=== PATIENT | female | born 1945 | race Caucasian/White ===

== ENCOUNTER 2018-06-25 12:41 | Emergency (ER) | payer MEDICARE, OTHER, SELFPAY ==
[2018-06-25 12:42] VITALS: BP 127/79; PULSE 85; RESP 17; TEMP 36.9; O2SAT 96
--- NOTE | 2018-06-25 13:11 | DI.RPTCT_ITS ---
SYMPTOM/DIAGNOSIS: MENTAL STATUS CHANGES NONCONTRAST HEAD CT: Comparison is made with 03/25/18. There are again seen old bilateral infarcts. No acute intracranial hemorrhage, infarct, midline shift or mass effect is identified. The ventricles are intact. The basilar cisterns are patent. The ventricles and sulci are prominent consistent with the patient's age. There are areas of decreased attenuation in the white matter consistent with small vessel ischemic disease. The calvarium is intact. The visualized paranasal sinuses are clear. The mastoid air cells are well pneumatized. IMPRESSION: No acute intracranial process. The findings were discussed with Dr. Tuttle of the ER on the date of the examination.
--- NOTE | 2018-06-25 13:11 | DI.REPORT_ITS ---
SYMPTOM/DIAGNOSIS: MENTAL STATUS CHANGES, LT HIP PAIN AP PELVIS: A single view was obtained. Comparison is made with 11/09/17. There are old healed fractures involving the right superior and inferior pubic rami. No acute fracture or dislocation is seen. There are degenerative changes seen at the sacroiliac joints bilaterally. The symphysis pubis appears intact. Moderately severe degenerative changes are noted in the lower lumbar spine. The hip joints appear well maintained. The bones appear osteopenic. Soft tissues are unremarkable. IMPRESSION: 1. No acute fracture or dislocation. 2. Moderately severe degenerative changes in the lower lumbar spine and sacroiliac joints. 3. Old healed right pubic bone fractures. AP AND LATERAL CHEST: Comparison is made with 03/25/18. The heart is enlarged but stable. There is a stable mitral valve replacement. Pulmonary vasculature is within normal limits. No focal infiltrates, effusions or pneumothoraces are identified. Mild degenerative changes are seen in the spine. IMPRESSION: Cardiomegaly. No acute pulmonary process.
--- NOTE | 2018-06-25 13:14 | ED.GENADUL_ITS ---
Disposition Clinical Impression: Acute cystitis Disposition: HOME Condition: Good Instructions: Urinary Tract Infection in Women (ED) Additional Instructions: Take antibiotics as prescribed. Follow-up with regular doctor for recheck in 7-10 days time. Return to the emergency department for any acute concerns. Prescriptions: Cephalexin [Keflex] 500 mg PO TID #30 cap Medical Decision Making - EKG Data -: EKG Interpreted by Me 06/25/18 13:28 Underlying atrial fibrillation, left bundle branch block pattern with repolarization abnormalities, no sig change versus comparison - Radiology Data Radiology results: report reviewed, image reviewed - Medical Decision Making 73-year-old female presents from home with acute mental status changes over days time. She has a baseline of aphasia following previous stroke and poor generalized orientation/dementia. She is afebrile with pulse 85, blood pressure 127/79. Neurologic exam is nonfocal. Differential diagnosis includes recurrent UTI, dehydration, electrolyte abnormality. Must consider central process as well as occult pneumonia. Finally, the patient complains intermittently of left hip discomfort. Exam reveals ulceration to the left distal posterior leg, which may be the source of her discomfort. Referred for laboratory analysis including a blood culture, urinalysis, CT scan of the head, chest x-ray, pelvis x-ray. Fluids initiated. White blood cell count 10, hematocrit 48, platelets 216, INR 3.3. Chemistries reassuring with sodium 139, potassium 4.1, chloride 104, bicarb 25, BUN 23, creatinine 0.9, LFTs unremarkable, troponin negative, albumin 3.2. Urine with positive nitrates, large leuk esterase, greater than 50 white blood cells. Culture pending. Imaging studies are without significant acute finding. Patient given ceftriaxone for her urinary tract infection in the emergency department. Placed on a course of Keflex. Her and the patient were interviewed by case management regarding their in-home resources. Mepilex was placed to the left posterior lower leg ulceration with dressing. Patient stable for discharge with her to home. She will continue antibiotic therapy. She will follow-up with primary care for recheck History of Present Illness - General Chief complaint: AMS/LOC Stated complaint: BARRE Time Seen by Provider: 06/25/18 12:58 Source: family, EMS Mode of arrival: EMS Limitations: altered mental status - History of Present Illness Initial comments: 73-year-old female brought by EMS from home. Per family she has had mental status changes of the gradual onset over days time. Concern for possible recurrent urinary tract infection. The patient has history of previous left MCA stroke with aphasia. She currently is maintained on warfarin, digoxin, Toprol. She is not contributory to the history. - Related Data Acetaminophen [Acetaminophen Extra Strength] 1,000 mg PO BID 08/27/16 Sertraline HCl 150 mg PO DAILY 08/27/16 Warfarin [Coumadin] 5 mg PO DIRECTED 08/27/16 Atorvastatin [Lipitor] 40 mg PO QPM #30 tab 09/05/16 Metoprolol CR [Toprol Xl] 50 mg PO BID 03/25/18 Cephalexin [Keflex] 500 mg PO TID #30 cap 06/25/18 Mirabegron [Myrbetriq] 25 mg PO 06/25/18 Allergies Allergy/AdvReac Type Severity Reaction Status Date / Time codeine Allergy Unknown Unverified 03/25/18 09:39 erythromycin base Allergy Unknown Unverified 03/25/18 09:39 Review of Systems Limitations: ROS unobtainable due to patients medical condition Past Medical History - Past Medical History Medical history: AFIB, 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 Family history: no significant family history - Social History Alcohol use: none Drug use: none General Exam - General Limitations: altered mental status General appearance: alert, in no apparent distress - Head Head exam: Present: atraumatic, normocephalic - Eye Eye exam: Present: PERRL, EOMI - ENT ENT exam: Present: mucous membranes dry - Respiratory Respiratory exam: Present: normal lung sounds bilaterally. Absent: respiratory distress, chest wall tenderness - Cardiovascular Cardiovascular Exam: Present: regular rate, irregular rhythm - GI/Abdominal GI/Abdominal exam: Present: soft. Absent: distended - Extremities Exam Extremities exam: Present: normal inspection, other (Left lower extremity, mid distal lower leg with posterior ulceration measuring approximately 3 x 2 cm.). Absent: tenderness - Back Exam Back exam: Present: normal inspection. Absent: tenderness - Neurological Exam Neurological exam: Present: motor sensory deficit, other (Patient is conversant , confused, oriented to person. Moves all extremities) - Psychiatric Psychiatric exam: Present: normal affect, normal mood - Skin Skin exam: Present: warm, dry, intact Course Vital Signs - 24 hr 06/25/18 12:42 Temperature 36.9 C Pulse 85 Respiratory 17 Rate Blood Pressure 127/79 Pulse Oximetry 96
[2018-06-25 13:26] LABS: Abs Immature Grans 0.02 k/cumm (0.0-0.09); Absolute Basophil Count 0.07 k/cumm (0.0-0.2); Absolute Eosinophil Count 0.09 k/cumm (0.0-0.7); Absolute Lymphocyte Count 2.97 k/cumm (1.2-3.4); Absolute Monocyte Count 0.61 k/cumm (0.11-0.7); Absolute Neutrophil Count 6.26 k/cumm (1.2-6.7); Basophils % 0.7; Eosinophils % 0.9; HCT 48.2 % (36.0-46.0); HGB 15.8 g/dL (12.0-15.5); Immature Grans % 0.2; Lymphocytes % 29.6; Mean Corp. HGB Concentration 32.8 g/dL (32.0-36.0); Mean Corpuscular Hemoglobin 28.6 pg (27.0-33.0); Mean Corpuscular Volume 87.2 fL (80-95); Mean Platelet Volume 10.7 fL (8.0-11.0); Monocytes % 6.1; Neutrophils % 62.5; Platelet Count 216 x1000/uL (130-400); RBC 5.53 m/cumm (4.00-5.20); RBC Distribution Width 14.8 % (11.7-14.6); White Blood Cell Count 10.02 k/cumm (4.4-10.8)
[2018-06-25 13:33] LABS: Bilirubin Negative (Negative); Blood Moderate (Negative); Clarity Cloudy; Glucose Negative (Negative); Ketones Negative (Negative); Leukocyte Esterase Large (Negative); Nitrite Positive (Negative); Urobilinogen 0.2 EU/dL (Up TO 0.2)
[2018-06-25 13:38] LABS: INR 3.3 (1.0-3.5); Prothrombin Time 31.1 sec (9.3-10.8)
[2018-06-25 13:42] LABS: ALT 26 U/L (12-78); AST 24 U/L (15-37); Albumin 3.2 g/dL (3.4-5.0); Alkaline Phosphatase 116 U/L (46-116); Anion Gap 9.3 mmol/L (3-11); BUN 23 mg/dL (7-18); Bilirubin, Total 0.5 mg/dL (0.2-1.0); CO2 25.7 mmol/L (21.0-32.0); CREATININE 0.97 mg/dL (0.55-1.02); Calcium 8.6 mg/dL (8.5-10.1); Chloride 104 mmol/L (98-107); Estimated GFR 55.98 (mL/min/1.73m2); Glucose 99 mg/dL (70-100); Magnesium 2.3 mg/dL (1.8-2.4); Potassium 4.1 mmol/L (3.5-5.1); Sodium 139 mmol/L (136-145); Total Protein 6.7 g/dL (6.4-8.2)
[2018-06-25 13:43] LABS: Troponin I < 0.02 ng/mL (0.00-0.06)
[2018-06-25 13:46] LABS: C & S Indicated? Yes; WBC >50 HPF (0-5)
--- NOTE | 2018-06-25 14:26 | PDOC.ERCMPRO ---
Care Management Progress Note 06/25-Met with Inna and her Sp. Inna presented to the ED today for acute mental status changes over several days. Inna has aphasia following a stroke, and dementia. Inna lives in [place] with her Sp. They have been for 44 years Inna's son lives three miles down the road and is a big help to them. Inna was discharged from [facility] on 02/27/18. Inna came home from [place] with home health PT/OT, nursing, and speech. She has been d/c'd from PT and speech. Currently receives home health nursing once a week for wound management and INR. Inna was also receiving services from [email or web address], a private care giving company, but Sp has suspended those services as he states they are not available in the afternoon and that is when he really needs help. Inna has a walker, cane, shower chair, wheelchair and handicap ramp at home. Sp states Inna walks about 10 feet holding onto the wall and furniture, states she can not walk independently. Sp provides all care for Inna including, meal preparation, housework, laundry, transportation and incontinence care. Sp states that they can no longer go out and eat as Inna can not hold her bowels and usually messes herself before they gets home. Discussed increased services, meals on wheels, private care giving, and possible return to [facility]. At this time, Sp is declining putting anything into place. He states he is working with Cory Underwood, elder care head soft sugar operator in [facility], to try and get their affairs in order. Sp states everything is private pay as the two of them have over $300,000. Sp is stating that he hopes Cory can help. Sp has my contact information if further assistance is needed.
--- NOTE | 2018-06-25 14:38 | CMPROGNOTE_ITS ---
Care Management Progress Note 06/25-Met with Inna and her Sp. Inna presented to the ED today for acute mental status changes over several days. Inna has aphasia following a stroke, and dementia. Inna lives in [place] with her Sp. They have been for 44 years Inna's son lives three miles down the road and is a big help to them. Inna was discharged from [facility] on 02/27/18. Inna came home from [place] with home health PT/OT, nursing, and speech. She has been d/c'd from PT and speech. Currently receives home health nursing once a week for wound management and INR. Inna was also receiving services from [employer], a private care giving company, but Sp has suspended those services as he states they are not available in the afternoon and that is when he really needs help. Inna has a walker, cane, shower chair, wheelchair and handicap ramp at home. Sp states Inna walks about 10 feet holding onto the wall and furniture, states she can not walk independently. Sp provides all care for Inna including, meal preparation, housework, laundry, transportation and incontinence care. Sp states that they can no longer go out and eat as Inna can not hold her bowels and usually messes herself before they gets home. Discussed increased services, meals on wheels, private care giving, and possible return to [facility]. At this time, Sp is declining putting anything into place. He states he is working with Cory Underwood, elder care vending machine servicer in [facility], to try and get their affairs in order. Sp states everything is private pay as the two of them have over $300,000. Sp is stating that he hopes Cory can help. Sp has my contact information if further assistance is needed.
[2018-06-25] MEDS: Normal Saline 1,000 ML 150 ML IV (14:59)
== END 2018-06-25 16:10 | disposition home or self-care (01) ==
PROVIDERS: Emergency Provider Emergency Medicine; PCP Family Medicine
DX: N30.00 Acute cystitis without hematuria (principal); B96.20 Unspecified Escherichia coli [E. coli] as the cause of diseases classified elsewhere; M25.552 Pain in left hip; I69.320 Aphasia following cerebral infarction; L97.829 Non-pressure chronic ulcer of other part of left lower leg with unspecified severity
CPT/HCPCS: 70450; 71046; 72170; 93005; 96361; 96365; 99285 ×2; J0696; 36415; 80053; 87040; 87077; 81003; 81015; 83735; 84484; 85025; 85610; 87086; 87186; 93010

== ENCOUNTER → 2018-07-10 14:43 | Outpatient (REF) | payer MEDICARE, OTHER, SELFPAY ==
[2018-07-10 21:13] LABS: Abs Immature Grans 0.02 k/cumm (0.0-0.09); Absolute Basophil Count 0.05 k/cumm (0.0-0.2); Absolute Eosinophil Count 0.18 k/cumm (0.0-0.7); Absolute Lymphocyte Count 2.82 k/cumm (1.2-3.4); Absolute Neutrophil Count 5.96 k/cumm (1.2-6.7); Basophils % 0.5; Eosinophils % 1.9; HCT 50.3 % (36.0-46.0); HGB 16.2 g/dL (12.0-15.5); Immature Grans % 0.2; Lymphocytes % 29.6; Mean Corp. HGB Concentration 32.2 g/dL (32.0-36.0); Mean Corpuscular Hemoglobin 28.3 pg (27.0-33.0); Mean Corpuscular Volume 87.8 fL (80-95); Mean Platelet Volume 11.7 fL (8.0-11.0); Monocytes % 5.2; Neutrophils % 62.6; Platelet Count 223 x1000/uL (130-400); RBC 5.73 m/cumm (4.00-5.20); RBC Distribution Width 14.9 % (11.7-14.6); White Blood Cell Count 9.53 k/cumm (4.4-10.8)
[2018-07-10 21:17] LABS: Bilirubin Negative (Negative); Blood Small (Negative); Clarity Sl Cloudy; Glucose Negative (Negative); Ketones Negative (Negative); Leukocyte Esterase Negative (Negative); Nitrite Negative (Negative); Specific Gravity 1.015 (1.005-1.025); Urobilinogen 0.2 EU/dL (Up TO 0.2)
[2018-07-10 21:28] LABS: WBC 0-2 HPF (0-5)
[2018-07-10 21:29] LABS: Bacteria Few HPF (Negative); Casts Negative LPF (Negative); Crystals Rare Calcium Oxalate HPF (Negative); Epithelial Cells Many HPF (Negative); Mucus Negative (Negative); Other Cells Rare Renal (Negative)
[2018-07-10 21:30] LABS: C & S Indicated? No/Sq. Contamination
[2018-07-10 21:49] LABS: ALT 27 U/L (12-78); AST 22 U/L (15-37); Albumin 3.9 g/dL (3.4-5.0); Alkaline Phosphatase 122 U/L (46-116); BUN 18 mg/dL (7-18); Bilirubin, Total 0.5 mg/dL (0.2-1.0); CREATININE 0.81 mg/dL (0.55-1.02); Chloride 102 mmol/L (98-107); Glucose 95 mg/dL (70-100); Potassium 4.4 mmol/L (3.5-5.1); Sodium 137 mmol/L (136-145); Total Protein 7.4 g/dL (6.4-8.2); Vitamin B12 546 pg/mL (193-986)
== END ==
LOC: NCHCN 14:43
PROVIDERS: PCP Family Medicine; Visit Provider Nurse Practitioner
DX: R10.9 Unspecified abdominal pain (principal); R41.89 Other symptoms and signs involving cognitive functions and awareness; R31.9 Hematuria, unspecified
CPT/HCPCS: 80053; 81003; 81015; 82607; 85025

== ENCOUNTER → 2018-07-15 01:36 | Outpatient (CLI) | payer MEDICARE, OTHER, SELFPAY ==
--- NOTE | 2018-07-15 10:53 | DI.RPTCT_ITS ---
SYMPTOMS/DIAGNOSIS: FLANK PAIN, R10.9, HEMATURIA, R31.9 CT SCAN OF THE ABDOMEN AND PELVIS: CT scan of the abdomen and pelvis was performed according to the renal colic protocol. The visualized lung bases are unremarkable. The visualized unenhanced portions of the liver and spleen are unremarkable. The patient is status post cholecystectomy. No biliary ductal dilatation is seen. There is fatty atrophy of the pancreas which is otherwise unremarkable. The adrenal glands are unremarkable. There is a 1 mm nonobstructing stone in the upper pole of the right kidney. There is again seen a cyst in the mid pole of the right kidney. This was present on prior examinations. There is no evidence of left nephrolithiasis. No ureterolithiasis or hydronephrosis is identified. No stones are seen in the urinary bladder. The uterus appears to be absent. Please correlate clinically. There is atherosclerosis of the abdominal aorta but no aneurysmal dilatation is present. No significant abdominal or pelvic adenopathy, ascites or pneumoperitoneum is present. There is a large amount of stool seen throughout the colon particularly the ascending and transverse colon consistent with constipation. No findings to suggest bowel obstruction, inflammation or infection are noted. No findings to suggest an acute appendicitis are seen. Note is made of a small fat containing umbilical hernia. Degenerative changes are present throughout the spine. The bones appear osteopenic. Old healed fractures are seen involving the right superior and inferior pubic rami. There is a scoliotic curvature of the spine. IMPRESSION: 1. Right nephrolithiasis. No evidence of ureterolithiasis or obstructive uropathy. 2. Large amount of stool throughout the colon consistent with constipation.
== END ==
PROVIDERS: PCP Family Medicine; Visit Provider Nurse Practitioner
DX: R10.31 Right lower quadrant pain (principal); N20.0 Calculus of kidney; K59.00 Constipation, unspecified
CPT/HCPCS: 74176

== ENCOUNTER 2018-08-03 12:10 | Emergency (ER) | payer MEDICARE, SELFPAY ==
--- NOTE | 2018-08-03 12:15 | ED.GENADUL_ITS ---
Discharge Plan Disposition Patient Disposition: HOME Condition: Improving Discharge Details Chief Complaint: AMS/LOC Clinical Impression: Acute UTI Reason For Visit: UTI Primary Care Provider: Elizabeth Corral ED Provider: Vickey Tuttle Home Meds and New Rx's Prescriptions: New cephalexin 500 mg capsule 500 mg PO TID 7 Days Qty: 21 RF: 0 Continue sertraline 100 MG tablet 150 mg PO DAILY RF: 0 acetaminophen [Acetaminophen Extra Strength] 500 MG tablet 1,000 mg PO BID RF: 0 warfarin [Coumadin] 5 MG tablet 5 mg PO DIRECTED RF: 0 atorvastatin [Lipitor] 40 MG tablet 40 mg PO QPM Qty: 30 RF: 0 metoprolol succinate 50 MG tablet extended release 24 hr 50 mg PO BID RF: 0 mirabegron [Myrbetriq] 25 MG tablet extended release 24 hr 25 mg PO RF: 0 Discharge Instructions Instructions: Urinary Tract Infection in Women (ED) Additional Instructions: Please take antibiotics as prescribed. Follow-up with Dr. Corral in clinic this week for recheck. Return to the emergency department for any acute concerns. Continue all regularly prescribed medications. Medical Decision Making MDM Narrative Medical decision making narrative: 73-year-old female presents from home with her with days of mild mental status changes that have been gradual in onset. She arrives with no fever, unremarkable vital signs, and exam that is nonfocal with the exception of some mild word finding difficulties. She has had a history of confusion with urinary tract infections in the past. Differential diagnosis today would also include electrolyte abnormalities, dehydration. Do not feel that she has signs of new CVA. Patient referred for screening laboratories and urinalysis. His white blood cell count of 11, otherwise unremarkable CBC. Chemistries reveal BUN of 22 with creatinine 0.9. INR is 4.2 Urinalysis with positive leuk esterase and consistent with acute urinary tract infection. I reviewed the patient's previous urine cultures which show pansensitive E. coli. I will place her on a course of Keflex and she will follow up with primary care for recheck. As her INR is slightly elevated, I will have her hold today's dose of warfarin, and this may be followed up in clinic this week. HPI - General Adult General Mode of arrival: ambulatory . Date/Time Provider Initiated Documentation: 08/03/18 12:13 . Limitations to Documentation: no limitations . Information obtained by: patient and family . History of Present Illness 73 year old F presents to the emergency department with the chief complaint of Not acting herself per , described as mild and moderate, Quality is described as constant, Patient started experiencing this day(s) and it has been constant. No relieving factors improve symptom(s), No exacerbating factors reported . Patient notes confusion and weakness. Patient did receive the following treatments prior to arrival, none HPI Narrative: 73yof presents from home with her . She has had previous stroke for which she is taking warfarin, and has had word finding difficulty since that time. reports the gradual onset over 4-5 days time of generalized malaise and mild confusion. No new focal weakness, no new difficulty with speech no new changes to gait. She has not had any injury, recent illness. Related Data Home Medications Medication Instructions Recorded Confirmed acetaminophen [Acetaminophen Extra 1,000 mg PO BID 08/27/16 08/03/18 Strength] sertraline 150 mg PO DAILY 08/27/16 08/03/18 warfarin [Coumadin] 5 mg PO DIRECTED 08/27/16 08/03/18 metoprolol succinate 50 mg PO BID 03/25/18 08/03/18 mirabegron [Myrbetriq] 25 mg PO 06/25/18 Previous Rx's Medication Instructions Recorded atorvastatin [Lipitor] 40 mg PO QPM #30 tab 09/05/16 cephalexin 500 mg PO TID 7 Days #21 cap 08/03/18 Allergies Allergy/AdvReac Type Severity Reaction Status Date / Time codeine Allergy Unknown Unverified 08/03/18 12:26 erythromycin base Allergy Unknown Unverified 08/03/18 12:26 Review of Systems Review of Systems 8 systems reviewed and otherwise negative [facility] Social History Smoking/Tobacco Use Status: Never Exam Narrative Exam Narrative: GEN: awake, alert, oriented to person and place. Pleasant, well groomed, interactive. HEAD: Normocephalic, atraumatic ENT: Mucous membranes moist, oropharynx unremarkable, External ear exam unremarkable EYES: PERRL, EOMI NECK: Full ROM, no SKYLER, no menigismus CHEST/RESP: Nontender, clear to auscultation bilateral, no wheeze/rhonchi/rales CARDIOVASCULAR: RRR, no murmur, rub sofia. 2+ Rad pulse bilateral ABDOMEN: Soft, nontender, no mass. +Bowel sounds EXT: Full ROM, no edema, no rash Neuro: Grossly normal neurologic exam, conversant, interactive. She does have word finding difficulties. Psych: Speech fluent, affect is flat
[2018-08-03 12:17] VITALS: BP 100/66; PULSE 89; RESP 16; TEMP 37.1; O2SAT 94
[2018-08-03] MEDS: Normal Saline 1,000 ML 150 ML IV (12:52)
[2018-08-03 12:58] LABS: Bilirubin Negative (Negative); Blood Moderate (Negative); Clarity Clear; Glucose Negative (Negative); Ketones Trace mg/dL (Negative); Leukocyte Esterase Trace (Negative); Nitrite Negative (Negative); Urobilinogen 0.2 EU/dL (Up TO 0.2)
[2018-08-03 13:02] LABS: Abs Immature Grans 0.03 k/cumm (0.0-0.09); Absolute Eosinophil Count 0.14 k/cumm (0.0-0.7); Absolute Lymphocyte Count 3.93 k/cumm (1.2-3.4); Absolute Monocyte Count 0.61 k/cumm (0.11-0.7); Absolute Neutrophil Count 7.09 k/cumm (1.2-6.7); Basophils % 0.8; Eosinophils % 1.2; HCT 51.2 % (36.0-46.0); HGB 16.9 g/dL (12.0-15.5); Immature Grans % 0.3; Mean Corpuscular Hemoglobin 28.1 pg (27.0-33.0); Mean Corpuscular Volume 85.2 fL (80-95); Mean Platelet Volume 10.9 fL (8.0-11.0); Monocytes % 5.1; Neutrophils % 59.6; Platelet Count 248 x1000/uL (130-400); RBC 6.01 m/cumm (4.00-5.20); RBC Distribution Width 15.1 % (11.7-14.6)
[2018-08-03 13:09] LABS: Bacteria Rare HPF (Negative); C & S Indicated? Yes; Casts Negative LPF (Negative); Crystals Negative HPF (Negative); Epithelial Cells Rare HPF (Negative); Mucus Moderate (Negative)
[2018-08-03 13:16] LABS: ALT 30 U/L (12-78); AST 20 U/L (15-37); Albumin 3.8 g/dL (3.4-5.0); Alkaline Phosphatase 127 U/L (46-116); Anion Gap 10.7 mmol/L (3-11); BUN 22 mg/dL (7-18); Bilirubin, Total 0.5 mg/dL (0.2-1.0); CO2 26.3 mmol/L (21.0-32.0); CREATININE 0.91 mg/dL (0.55-1.02); Calcium 9.1 mg/dL (8.5-10.1); Chloride 103 mmol/L (98-107); Glucose 111 mg/dL (70-100); Magnesium 2.1 mg/dL (1.8-2.4); Potassium 4.2 mmol/L (3.5-5.1); Sodium 140 mmol/L (136-145); Total Protein 7.6 g/dL (6.4-8.2)
[2018-08-03 13:18] LABS: Troponin I < 0.02 ng/mL (0.00-0.06)
[2018-08-03 13:37] LABS: Prothrombin Time 38.8 sec (9.3-10.8)
[2018-08-03] MEDS: Cephalexin 500 MG CAP PO (13:53)
[2018-08-03 13:56] LABS: INR 4.2 (1.0-3.5)
--- NOTE | 2018-08-05 10:41 | PDOC.ERCMPRO ---
Care Management Progress Note 08/05/18-Pt seen for UTI on 08/03/[address] Lisy Tuttle. F/U within this week request sent to [facility] as Rafita Corral is PCP.
== END 2018-08-03 14:15 | disposition home or self-care (01) ==
LOC: ER 14:08
PROVIDERS: Emergency Provider Emergency Medicine; PCP Family Medicine
DX: N39.0 Urinary tract infection, site not specified (principal); B97.89 Other viral agents as the cause of diseases classified elsewhere; R79.1 Abnormal coagulation profile; T45.515A Adverse effect of anticoagulants, initial encounter; Z79.01 Long term (current) use of anticoagulants
CPT/HCPCS: 36415; 80053; 99284; 81003; 81015; 83735; 84484; 85025; 85610; 87086

== ENCOUNTER 2018-08-10 12:59 | Emergency (ER) | payer MEDICARE, SELFPAY ==
[2018-08-10 13:05] VITALS: BP 131/85; PULSE 80; RESP 18; TEMP 36.5; O2SAT 94
--- NOTE | 2018-08-10 13:55 | DI.RAD_ITS ---
SYMPTOM/DIAGNOSIS: FELL, RT RIB PAIN RIGHT RIBS AND PA AND LATERAL CHEST: Comparison is made with 06/25/18. The heart is enlarged. There is a mitral valve replacement. Pulmonary vasculature is within normal limits. The lungs appear hyperinflated consistent with underlying COPD. No focal infiltrates are seen. No effusions or pneumothoraces are identified. There are surgical clips projected over the right upper hemithorax. There are also surgical clips in the right upper quadrant of the abdomen, likely reflecting prior cholecystectomy. There are contour abnormalities involving the right third, fourth and fifth ribs , likely reflecting nondisplaced fractures. The bones are osteopenic. No other fractures are seen. Degenerative changes are seen in the spine. IMPRESSION: Contour abnormalities involving the third, fourth and fifth ribs consistent with nondisplaced fractures. These are of indeterminate acuity.
[2018-08-10 14:04] LABS: Prothrombin Time 17.7 sec (9.3-10.8)
[2018-08-10 14:05] LABS: INR 1.8 (1.0-3.5)
--- NOTE | 2018-08-10 14:37 | ED.GENADUL_ITS ---
Discharge Plan Disposition Patient Disposition: HOME Condition: Good Discharge Details Chief Complaint: Chest/Rib Clinical Impression: Right rib fracture Primary Care Provider: Elizabeth Corral ED Provider: Yair Plummer Home Meds and New Rx's Prescriptions: New acetaminophen [Mapap Extra Strength] 500 MG tablet 1,000 mg PO Q6H 5 Days Qty: 60 RF: 0 lidocaine [Lidoderm] 5 % adhesive patch,medicated 1 patch TP DAILY Qty: 6 RF: 0 No Action sertraline 100 MG tablet 150 mg PO DAILY RF: 0 warfarin [Coumadin] 5 MG tablet 5 mg PO DIRECTED RF: 0 atorvastatin [Lipitor] 40 MG tablet 40 mg PO QPM Qty: 30 RF: 0 metoprolol succinate 50 MG tablet extended release 24 hr 50 mg PO BID RF: 0 mirabegron [Myrbetriq] 25 MG tablet extended release 24 hr 25 mg PO DAILY RF: 0 acetaminophen 325 mg Tablet 325 mg PO BID RF: 0 cephalexin 500 mg Capsule 500 mg PO TID RF: 0 Discharge Instructions Instructions: Rib Fracture (ED) Additional Instructions: Please use your incentive spirometer at all times. Please take medication as directed for pain. if you notice any worsening of your symptoms, or any new symptoms such as vomiting, diarrhea, fever, chills, shortness of breath, chest pain, numbness, weakness, or fainting , please return immediately to the emergency department for reevaluation. Please follow up with your primary care provider as soon as possible for reassessment and reevaluation. As always, it was a pleasure participating in your medical care today. Referrals: Elizabeth Corral [Primary Care Provider] - Medical Decision Making This is a 73-year-old female with a past medical history of A. fib, and severe dementia who presents today for evaluation of trauma. 3 days ago she rolled up against the couch and struck her right ribs with her right elbow. She has been doing well since then but has had mild continued pain in the right rib area. INR level is slightly subtherapeutic, but certainly not supratherapeutic. Bedside portable FAST exam demonstrated no evidence of intra- abdominal bleeding. Vital signs are stable, with no evidence of tachycardia or hypotension. We are waiting on formal results from rigged x-rays, however I see no evidence of significant rib pneumothorax, or flail chest. 3:07 PM X-ray results per virtual radiology demonstrate minimally displaced unhealed fracture of the right fourth rib, contour abnormality of the right third rib may represent acute on chronic fracture. No other signs of an acute fracture. We did get an incentive spirometer for the patient, and provided education with her and her at bedside. Patient demonstrated greater than 1500 cc for 10 consecutive breaths without difficulty. I feel that her pain is well controlled and can be continually controlled with Tylenol and Motrin at home. We will prescribe a prescription for Lidoderm patch for use at home also. We discussed red flags which to return, as well as the importance of close follow- up with PCP, as well as the potential signs and symptoms associated with pneumonia. At this time there are no evidence of pneumonia or infection for the patient, no other significant abnormalities that appear to be life- threatening. Vital signs are normal. Pain is controlled. I have extensively reviewed the treatment plan and discharge instructions with the patient and their family. I have addressed all patient concerns at this time. The patient and family was made aware of what symptoms to monitor for that would warrant a return to the emergency department. Discussed the plan with the patient and family, they demonstrate verbal understanding and agreement with our assessment and plan at this time. HPI General Date/Time Provider Initiated Documentation: 08/10/18 13:14 . HPI Narrative: This is a pleasant 73-year-old female with a past medical history of severe dementia, as well as a history of Coumadin use secondary to A. fib, who presents for right rib pain. The patient's states that 3 days ago patient was walking around ambulating when she slipped, and began catching herself on the couch however her right elbow jammed up against her right ribs. She did not hit her head, she did not lose consciousness, she did not hit any hard or overly firm objects. She was able to get up and walk around well without any. Since then she has complained of continued rib tenderness on the right. She did have a urinary tract infection which she has been treated for with Keflex for the last week, and she only has 2 doses left at this time. The patient has no other complaints, however her history is limited secondary to her severe dementia, however her has no additional complaints, and denies any other pertinent historical components. She does have a history of a cholecystectomy. No other pertinent surgical or medical history per family. No history of IV or illicit drug Related Data Home Medications Medication Instructions Recorded Confirmed sertraline 150 mg PO DAILY 08/27/16 08/10/18 warfarin [Coumadin] 5 mg PO DIRECTED 08/27/16 08/10/18 atorvastatin [Lipitor] 40 mg PO QPM #30 tab 09/05/16 08/10/18 metoprolol succinate 50 mg PO BID 03/25/18 08/10/18 mirabegron [Myrbetriq] 25 mg PO DAILY 06/25/18 08/10/18 acetaminophen 325 mg PO BID 08/10/18 08/10/18 acetaminophen [Mapap Extra 1,000 mg PO Q6H 5 Days #60 tab 08/10/18 Strength] cephalexin 500 mg PO TID 08/10/18 08/10/18 lidocaine [Lidoderm] 1 patch TP DAILY #6 each 08/10/18 Previous Rx's Medication Instructions Recorded atorvastatin [Lipitor] 40 mg PO QPM #30 tab 09/05/16 acetaminophen [Mapap Extra 1,000 mg PO Q6H 5 Days #60 tab 08/10/18 Strength] lidocaine [Lidoderm] 1 patch TP DAILY #6 each 08/10/18 Allergies Allergy/AdvReac Type Severity Reaction Status Date / Time codeine Allergy Unknown Unverified 08/10/18 13:11 erythromycin base Allergy Unknown Unverified 08/10/18 13:11 General Stated Complaint: Chest/Rib YI: 3 Review of Systems Review of Systems 10 point review of systems was performed, pertinent positives and negatives are noted in the history of present illness. Exam Narrative Exam Narrative: 1.Const: Well-nourished, Well-developed, appearing stated age 2.Eyes: PERRL, no conjunctival injection, and symmetrical lids. 3.ENT: Atraumatic external nose and ears. Moist MM. Neck: Symmetric, trachea midline, No thyromegaly. There is no evidence of raccoon eyes, bolaños sign, CSF rhinorrhea, mastoid tenderness, cranial crepitus, hemotympanum, exophthalmos , or hyphema. Patient demonstrates intact dentition with no signs of tooth avulsion or fracture, no signs of jaw deformity, no evidence of a LeFort's fracture, with an intact palate, nose and orbital region. There is no evidence of a nasal septal hematoma. No proptosis. Jaw closes symmetrically. Airway is clear. 4.CVS: +S1/S2, No murmurs or gallops. Peripheral pulses 2+ and equal in all extremities. Brisk capillary refill in all extremities. 5.RESP: Unlabored respiratory effort. Clear to auscultation bilaterally. No wheezes rales or rhonchi, patient does have notable tenderness over her right lower chest wall over ribs 6 7 and 8 on the right axillary line. No evidence of flail chest. No evidence of deformity or bleeding. No bruise. 6.GI: Soft, Nontender/Nondistended, No hepatosplenomegaly. No guarding or rebound. 7.MSK: Normocephalic/Atraumatic, Extremities w/o deformity or ttp No cyanosis or clubbing, Normal movement of all extremities including the upper arms bilaterally. 8.Skin: Warm, Dry. No rashes or lesions. 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 Sensation grossly intact, no focal neurologic deficits. E-FAST Exam type: Diagnostic Indication for exam: Blunt trauma Views obtained: hepatorenal, perisplenic, suprapubic, pericardial, R lung, L lung Findings and interpretations: all views were adequate. No abdominal free fluid or pericardial fluid seen. Normal lung sliding, normal sea shore sign, no bar code sign indicating no pneumothorax. The patient tolerated the procedure well and there were no complications. 10.Psych: (AAO) x3. Appropriate mood and affect Course Vital Signs Temperature 36.5 C 08/10/18 13:05 Pulse 80 08/10/18 13:05 Respiratory Rate 18 08/10/18 13:05 Blood Pressure 131/85 08/10/18 13:05 Pulse Oximetry 94 L 08/10/18 13:05 Temperature 36.5 C 08/10/18 13:05 Temperature Source Temporal Artery Scan 08/10/18 13:05 Pulse 80 08/10/18 13:05 Respiratory Rate 18 08/10/18 13:05 Respiratory Effort Non-Labored 08/10/18 13:11 Blood Pressure 131/85 08/10/18 13:05 Blood Pressure Position Sitting 08/10/18 13:05 Pulse Oximetry 94 L 08/10/18 13:05 Oxygen Delivery Method Room Air 08/10/18 13:05 Oxygen Flow Rate 0 08/10/18 13:05 Pain Level 10 08/10/18 13:05 Lab/Test Results Lab/Test Results: Laboratory Tests Range/Units 08/10/18 13:34 PT (9.3-10.8) sec 17.7 H INR (1.0-3.5) 1.8
--- NOTE | 2018-08-10 14:52 | DI.VRAD_ITS ---
EXAM: XR Chest, 2 Views CLINICAL HISTORY: 73 years old, female; Pain; Chest wall pain; Other: Right rib pain sp fall TECHNIQUE: Frontal and lateral views of the chest. COMPARISON: No relevant prior studies available. FINDINGS: Lungs: Hyperexpanded lung reddy consistent with COPD Pleural space: Unremarkable. No pneumothorax. Heart: Status post cardiac valve replacement Stable cardiac silhouette Mediastinum: Unremarkable. Bones/joints: Osteopenia. Unhealed right fourth rib fracture. Contour abnormality in the right third rib Soft tissues: Surgical clips in the right apex Vasculature: Tortuous aorta Upper abdomen: Surgical clips in the right upper quadrant IMPRESSION: Unhealed right fourth rib fracture EXAM: XR Right Ribs, 2 Views CLINICAL HISTORY: 73 years old, female; Pain; Chest wall pain; Other: Right rib pain sp fall TECHNIQUE: Frontal and oblique views of the right ribs. COMPARISON: CR CHEST 2 VIEWS PA,LAT 06/25/2018 1:32 PM FINDINGS: Lungs: Hyperexpanded lung reddy consistent with COPD Pleural space: Unremarkable. No pneumothorax. Bones/joints: Minimally displaced unhealed fracture in the right fourth rib. Contour abnormality in the right third rib may represent acute or chronic fracture. IMPRESSION: 1. Minimally displaced unhealed fracture in the right fourth rib. 2. Contour abnormality in the right third rib may represent acute or chronic fracture. Dictated and Authenticated by: Aurora Torres MD. Ordering:JOSUE WHITAKER MD
[2018-08-10 15:20] VITALS: BP 131/85; PULSE 80; RESP 18; TEMP 36.5; O2SAT 94
== END 2018-08-10 15:18 | disposition home or self-care (01) ==
PROVIDERS: Emergency Provider Student in an Organized Health Care Education/Training Program; PCP Family Medicine
DX: S22.31XA Fracture of one rib, right side, initial encounter for closed fracture (principal); W01.190A Fall on same level from slipping, tripping and stumbling with subsequent striking against furniture, initial encounter; F03.90 Unspecified dementia, unspecified severity, without behavioral disturbance, psychotic disturbance, mood disturbance, and anxiety; Z79.01 Long term (current) use of anticoagulants
CPT/HCPCS: 36415; 99284; 71046; 71100; 85610

== ENCOUNTER 2018-09-07 14:47 | Emergency (ER) | payer MEDICARE, SELFPAY ==
[2018-09-07 15:03] VITALS: BP 150/98; PULSE 91; RESP 18; TEMP 36.8; O2SAT 96
--- NOTE | 2018-09-07 15:26 | ED.GENADUL_ITS ---
Discharge Plan Disposition Patient Disposition: HOME Condition: Stable Discharge Details Chief Complaint: Urinary Clinical Impression: Dementia, Acute UTI Primary Care Provider: Elizabeth Corral ED Provider: Tiburcio Burrows Home Meds and New Rx's Prescriptions: New levofloxacin 750 mg tablet 750 mg PO DAILY Qty: 4 RF: 0 Continue sertraline 100 MG tablet 150 mg PO DAILY RF: 0 warfarin [Coumadin] 5 MG tablet 5 mg PO DIRECTED RF: 0 atorvastatin [Lipitor] 40 MG tablet 40 mg PO QPM Qty: 30 RF: 0 metoprolol succinate 50 MG tablet extended release 24 hr 50 mg PO BID RF: 0 mirabegron [Myrbetriq] 25 MG tablet extended release 24 hr 25 mg PO DAILY RF: 0 acetaminophen 325 mg Tablet 325 mg PO BID RF: 0 cephalexin 500 mg Capsule 500 mg PO TID RF: 0 lidocaine [Lidoderm] 5 % adhesive patch,medicated 1 patch TP DAILY Qty: 6 RF: 0 Discharge Instructions Additional Instructions: The symptoms could be from a urinary tract infection but could also be due to worsening dementia follow up with her primary care provider this week if she has high fevers, severe pain or weakness return to the emergency department Discharge Data Discharge Physician: Tiburcio Burrows Medical Decision Making 73 yo female with hx of severe dementia, afib, who comes in with her concerned for a uti. The past week he states she has had intermittent cofusion episodes, trying to feed the dog things other than his food. She seems to be at her baseline mental status santamaria from what I can ascertain from the and she has no complaints at this time. I suspect she is having declining mental status due to her dementia but will check a UA to evaluate further does have positive nitrites so will start abx for this, but feel this also could be her dementia worsening. The is comfortable bringing her home. He has looked into assisted living and nursing homes but is not ready yet to have her put there. He is going to f/u with his pcp's office this week and return precautions given Differential Diagnosis uti, dementia, HPI General Mode of arrival: ambulatory . Date/Time Provider Initiated Documentation: 09/07/18 15:11 . Limitations to Documentation: other (dementia) . Information obtained by: patient . History of Present Illness 73 year old F presents to the emergency department with the chief complaint of confusion, described as moderate, Patient started experiencing this week(s) (2) No relieving factors improve symptom(s), No exacerbating factors reported . Patient did receive the following treatments prior to arrival, none Related Data Home Medications Medication Instructions Recorded Confirmed sertraline 150 mg PO DAILY 08/27/16 09/07/18 warfarin [Coumadin] 5 mg PO DIRECTED 08/27/16 09/07/18 atorvastatin [Lipitor] 40 mg PO QPM #30 tab 09/05/16 09/07/18 metoprolol succinate 50 mg PO BID 03/25/18 09/07/18 mirabegron [Myrbetriq] 25 mg PO DAILY 06/25/18 09/07/18 acetaminophen 325 mg PO BID 08/10/18 09/07/18 cephalexin 500 mg PO TID 08/10/18 09/07/18 lidocaine [Lidoderm] 1 patch TP DAILY #6 each 08/10/18 09/07/18 levofloxacin 750 mg PO DAILY #4 tab 09/07/18 Previous Rx's Medication Instructions Recorded atorvastatin [Lipitor] 40 mg PO QPM #30 tab 09/05/16 lidocaine [Lidoderm] 1 patch TP DAILY #6 each 08/10/18 levofloxacin 750 mg PO DAILY #4 tab 09/07/18 Allergies Allergy/AdvReac Type Severity Reaction Status Date / Time codeine Allergy Unknown Unverified 09/07/18 15:08 erythromycin base Allergy Unknown Unverified 09/07/18 15:08 General Stated Complaint: Urinary YI: 4 Review of Systems Review of Systems All systems reviewed & are unremarkable except as noted in HPI and below Constitutional Denies chills, Denies fever(s) and Denies weakness Eyes Denies loss of vision ENT Denies change in voice Cardiovascular Denies chest pain and Denies dyspnea Respiratory Denies dyspnea Gastrointestinal Denies abdominal pain, Denies nausea and Denies vomiting Genitourinary Denies dysuria Musculoskeletal Denies joint swelling Integumentary/Breasts Denies rash Neurologic Denies loss of vision and Denies weakness Psychiatric Denies depression Endocrine Denies cold intolerance and Denies heat intolerance Allergic/Immunologic Denies urticaria [facility] Social History Smoking/Tobacco Use Status: Never Exam Const General: no acute distress Orientation: alert HENMT Head: normal to inspection Ears: external ears normal General nose exam: external nose normal Mouth: moist mucous membranes Eyes General: appearance normal, both eyes and all related structures Neck Neck: normal visual inspection Resp Effort & Inspection: normal respiratory effort and able to speak in complete sentences Cardio Rate: regular rate Skin General skin exam: no rashes or lesions noted Neuro General: alert and other (oriented to her name only which is her baseline per the . Has no focal motor or sensation deficits. She has elda eintermittent slurred speech whiich also states is normal for her) Extrem General: normal to inspection Psych Mental Status: mental status grossly normal Course Vital Signs Temperature 36.8 C 09/07/18 15:03 Pulse 91 H 09/07/18 15:03 Respiratory Rate 18 09/07/18 15:03 Blood Pressure 150/98 H 09/07/18 15:03 Pulse Oximetry 96 09/07/18 15:03 Temperature 36.8 C 09/07/18 15:03 Temperature Source Skin 09/07/18 15:03 Pulse 91 H 09/07/18 15:03 Respiratory Rate 18 09/07/18 15:03 Respiratory Effort Non-Labored 09/07/18 15:06 Blood Pressure 150/98 H 09/07/18 15:03 Pulse Oximetry 96 09/07/18 15:03 Pain Level 0 09/07/18 15:03
[2018-09-07 15:55] LABS: Bilirubin Negative (Negative); Blood Moderate (Negative); Clarity Clear; Glucose Negative (Negative); Ketones Negative (Negative); Leukocyte Esterase Small (Negative); Nitrite Positive (Negative); Urobilinogen 0.2 EU/dL (Up TO 0.2); pH 6.5 (5-8)
[2018-09-07 16:04] LABS: Bacteria Many HPF (Negative); C & S Indicated? Yes; Casts Negative LPF (Negative); Crystals Negative HPF (Negative); Epithelial Cells Rare HPF (Negative); Mucus Negative (Negative); Other Cells Negative (Negative)
[2018-09-07] MEDS: LEVOFLOXACIN 500 MG, LEVOFLOXACIN 250 MG 750 MG PO (16:16)
--- NOTE | 2018-09-09 08:31 | PDOC.ERCMPRO ---
Care Management Progress Note 09/09-Dr. Burrows requested assistance with a PCP (Shayna) f/u this week for worsening dementia and UTI. Referral faxed to [facility] this am.
== END 2018-09-07 16:22 | disposition home or self-care (01) ==
PROVIDERS: Emergency Provider Emergency Medicine; PCP Family Medicine
DX: N39.0 Urinary tract infection, site not specified (principal); B96.20 Unspecified Escherichia coli [E. coli] as the cause of diseases classified elsewhere; F03.90 Unspecified dementia, unspecified severity, without behavioral disturbance, psychotic disturbance, mood disturbance, and anxiety; I10 Essential (primary) hypertension; Z87.440 Personal history of urinary (tract) infections
CPT/HCPCS: 87077; 99283; 81003; 81015; 87086; 87186

== ENCOUNTER 2019-01-20 19:21 | Emergency (ER) | payer MEDICARE, SELFPAY ==
[2019-01-20 19:26] VITALS: BP 135/69; PULSE 75; RESP 16; TEMP 36.4; O2SAT 98
--- NOTE | 2019-01-20 19:48 | W.ED.GENAD ---
Discharge Plan Disposition Patient Disposition: HOME Condition: Stable Discharge Details Chief Complaint: GenMedical Clinical Impression: Wound of left foot Primary Care Provider: Elizabeth Corral ED Provider: Tiburcio Burrows Home Meds and New Rx's Prescriptions: No Action sertraline 100 MG tablet 150 mg PO DAILY RF: 0 atorvastatin [Lipitor] 40 MG tablet 40 mg PO QPM Qty: 30 RF: 0 metoprolol succinate 50 MG tablet extended release 24 hr 50 mg PO BID RF: 0 Myrbetriq 25 MG tablet extended release 24 hr 50 mg PO DAILY RF: 0 acetaminophen 325 mg Tablet 325 mg PO BID PRNRF: 0 Eliquis 5 mg Tablet 5 mg PO HS RF: 0 digoxin [Digox] 125 mcg Tablet 125 mcg PO DAILY RF: 0 cranberry 500 mg Capsule 1 tab/day PO BID RF: 0 Discharge Instructions Additional Instructions: Our child care lead teacher should contact you tomorrow for information on the home health referral IF she has redness spreading away the wound or you feel she is confused or having changes in urinary habits return to the emergency department for reevaluation follow up with her primary care provider within 1-2 weeks Medical Decision Making 73 yo female with hx of dementia, sometimes oriented to name only per family, is brought in for dressing to a left great toe and heal wound. They state in the past she has had issues with scratching her feet and causing wounds that she requires home health wound care for. Today she has been scratching her heal and now has stage 1 ulcer of the left heal plantar surface that is about 3 cm in diamter, no pain, doesn't go to bone or have any tunneling and no surrounding erythema. Has a small 0.5cm area of wound excoriation on lateral distal right toe without evidence of ifnection as well. Given no tunneling or bone exposure doubt osteo and do not feel labs or imaging indicated. Will place on child care lead teacher's list to assist with home health referral for wound care of the left foot sima. the son did request urine to be evaluated for as she has had frequent uti's in the past. She has no symptoms of this and is at baseline mental status santamaria so do not feel testing for uti indicated and son agrees after discussion. They will return if she is worsening or has symptoms of uti or evidence of wound infection Differential Diagnosis wound, rash HPI General Mode of arrival: ambulatory. Date/Time Provider Initiated Documentation: 01/20/19 19:22. Limitations to Documentation: altered mental status (dementia). Information obtained by: patient and family. History of Present Illness 73 year old F presents to the emergency department with the chief complaint of left heal wound, described as mild, with intensity rated at 2. and is localized to the left and lower extremity. Patient reports no radiation. Patient started experiencing this day(s) (1) No relieving factors improve symptom(s), No exacerbating factors reported . Patient did receive the following treatments prior to arrival, none Related Data Home Medications Medication Instructions Recorded Confirmed sertraline 150 mg PO DAILY 08/27/16 01/20/19 atorvastatin [Lipitor] 40 mg PO QPM #30 tab 09/05/16 01/20/19 metoprolol succinate 50 mg PO BID 03/25/18 01/20/19 Myrbetriq 50 mg PO DAILY 06/25/18 01/20/19 acetaminophen 325 mg PO BID PRN 08/10/18 01/20/19 apixaban [Eliquis] 5 mg PO HS 01/20/19 01/20/19 cranberry 1 tab/day PO BID 01/20/19 01/20/19 digoxin [Digox] 125 mcg PO DAILY 01/20/19 01/20/19 Previous Rx's Medication Instructions Recorded atorvastatin [Lipitor] 40 mg PO QPM #30 tab 09/05/16 Allergies Allergy/AdvReac Type Severity Reaction Status Date / Time codeine Allergy Unknown Unverified 09/07/18 15:08 erythromycin base Allergy Unknown Unverified 09/07/18 15:08 General Stated Complaint: GenMedical YI: 5 Review of Systems Review of Systems All systems reviewed & are unremarkable except as noted in HPI and below and Unobtainable due to (obtained bfrom family) Constitutional Denies chills, Denies fever(s) and Denies weakness ENT Denies change in voice Cardiovascular Denies dyspnea Respiratory Denies cough and Denies dyspnea Gastrointestinal Denies vomiting Genitourinary Denies dysuria Integumentary/Breasts Denies rash Neurologic Denies weakness Psychiatric Denies depression Endocrine Denies heat intolerance PFSH Social History Smoking and Tabacco status: Never Exam Const General: no acute distress Orientation: alert HENMT Head: normal to inspection Ears: external ears normal General nose exam: external nose normal Mouth: moist mucous membranes Eyes General: appearance normal, both eyes and all related structures Neck Neck: normal visual inspection Resp Effort & Inspection: normal respiratory effort and able to speak in complete sentences Cardio Rate: regular rate Skin General skin exam: elasticity normal Neuro General: alert and oriented x3 Extrem General: normal to inspection Psych Mental Status: mental status grossly normal Course Vital Signs Temperature 36.4 C L 01/20/19 19:26 Pulse 75 01/20/19 19:26 Respiratory Rate 16 01/20/19 19:26 Blood Pressure 135/69 01/20/19 19:26 Pulse Oximetry 98 01/20/19 19:26 Temperature 36.4 C L 01/20/19 19:26 Temperature Source Temporal Artery Scan 01/20/19 19:26 Pulse 75 01/20/19 19:26 Respiratory Rate 16 01/20/19 19:26 Respiratory Effort 01/20/19 19:26 Blood Pressure 135/69 01/20/19 19:26 Blood Pressure Position Sitting 01/20/19 19:26 Pulse Oximetry 98 01/20/19 19:26 Oxygen Delivery Method Room Air 01/20/19 19:26 Oxygen Flow Rate 0 01/20/19 19:26 Pain Level 0 01/20/19 19:26
--- NOTE | 2019-01-20 19:56 | ED.GENADUL_ITS ---
Discharge Plan Disposition Patient Disposition: HOME Condition: Stable Discharge Details Chief Complaint: GenMedical Clinical Impression: Wound of left foot Primary Care Provider: Elizabeth Corral ED Provider: Tiburcio Burrows Home Meds and New Rx's Prescriptions: No Action sertraline 100 MG tablet 150 mg PO DAILY RF: 0 atorvastatin [Lipitor] 40 MG tablet 40 mg PO QPM Qty: 30 RF: 0 metoprolol succinate 50 MG tablet extended release 24 hr 50 mg PO BID RF: 0 Myrbetriq 25 MG tablet extended release 24 hr 50 mg PO DAILY RF: 0 acetaminophen 325 mg Tablet 325 mg PO BID PRNRF: 0 Eliquis 5 mg Tablet 5 mg PO HS RF: 0 digoxin [Digox] 125 mcg Tablet 125 mcg PO DAILY RF: 0 cranberry 500 mg Capsule 1 tab/day PO BID RF: 0 Discharge Instructions Additional Instructions: Our furnace caretaker should contact you tomorrow for information on the home health referral IF she has redness spreading away the wound or you feel she is confused or having changes in urinary habits return to the emergency department for reevaluation follow up with her primary care provider within 1-2 weeks Medical Decision Making 73 yo female with hx of dementia, sometimes oriented to name only per family, is brought in for dressing to a left great toe and heal wound. They state in the past she has had issues with scratching her feet and causing wounds that she requires home health wound care for. Today she has been scratching her heal and now has stage 1 ulcer of the left heal plantar surface that is about 3 cm in diamter, no pain, doesn't go to bone or have any tunneling and no surrounding erythema. Has a small 0.5cm area of wound excoriation on lateral distal right toe without evidence of ifnection as well. Given no tunneling or bone exposure doubt osteo and do not feel labs or imaging indicated. Will place on furnace caretaker's list to assist with home health referral for wound care of the left foot sima. the son did request urine to be evaluated for as she has had frequent uti's in the past. She has no symptoms of this and is at baseline mental status santamaria so do not feel testing for uti indicated and son agrees after discussion. They will return if she is worsening or has symptoms of uti or evidence of wound infection Differential Diagnosis wound, rash HPI General Mode of arrival: ambulatory . Date/Time Provider Initiated Documentation: 01/20/19 19:22 . Limitations to Documentation: altered mental status (dementia) . Information obtained by: patient and family . History of Present Illness 73 year old F presents to the emergency department with the chief complaint of left heal wound, described as mild, with intensity rated at 2. and is localized to the left and lower extremity. Patient reports no radiation. Patient started experiencing this day(s) (1) No relieving factors improve symptom(s), No exacerbating factors reported . Patient did receive the following treatments prior to arrival, none Related Data Home Medications Medication Instructions Recorded Confirmed sertraline 150 mg PO DAILY 08/27/16 01/20/19 atorvastatin [Lipitor] 40 mg PO QPM #30 tab 09/05/16 01/20/19 metoprolol succinate 50 mg PO BID 03/25/18 01/20/19 Myrbetriq 50 mg PO DAILY 06/25/18 01/20/19 acetaminophen 325 mg PO BID PRN 08/10/18 01/20/19 apixaban [Eliquis] 5 mg PO HS 01/20/19 01/20/19 cranberry 1 tab/day PO BID 01/20/19 01/20/19 digoxin [Digox] 125 mcg PO DAILY 01/20/19 01/20/19 Previous Rx's Medication Instructions Recorded atorvastatin [Lipitor] 40 mg PO QPM #30 tab 09/05/16 Allergies Allergy/AdvReac Type Severity Reaction Status Date / Time codeine Allergy Unknown Unverified 09/07/18 15:08 erythromycin base Allergy Unknown Unverified 09/07/18 15:08 General Stated Complaint: GenMedical YI: 5 Review of Systems Review of Systems All systems reviewed & are unremarkable except as noted in HPI and below and Unobtainable due to (obtained bfrom family) Constitutional Denies chills, Denies fever(s) and Denies weakness ENT Denies change in voice Cardiovascular Denies dyspnea Respiratory Denies cough and Denies dyspnea Gastrointestinal Denies vomiting Genitourinary Denies dysuria Integumentary/Breasts Denies rash Neurologic Denies weakness Psychiatric Denies depression Endocrine Denies heat intolerance PFSH Social History Smoking and Tabacco status: Never Exam Const General: no acute distress Orientation: alert HENMT Head: normal to inspection Ears: external ears normal General nose exam: external nose normal Mouth: moist mucous membranes Eyes General: appearance normal, both eyes and all related structures Neck Neck: normal visual inspection Resp Effort & Inspection: normal respiratory effort and able to speak in complete sentences Cardio Rate: regular rate Skin General skin exam: elasticity normal Neuro General: alert and oriented x3 Extrem General: normal to inspection Psych Mental Status: mental status grossly normal Course Vital Signs Temperature 36.4 C L 01/20/19 19:26 Pulse 75 01/20/19 19:26 Respiratory Rate 16 01/20/19 19:26 Blood Pressure 135/69 01/20/19 19:26 Pulse Oximetry 98 01/20/19 19:26 Temperature 36.4 C L 01/20/19 19:26 Temperature Source Temporal Artery Scan 01/20/19 19:26 Pulse 75 01/20/19 19:26 Respiratory Rate 16 01/20/19 19:26 Respiratory Effort 01/20/19 19:26 Blood Pressure 135/69 01/20/19 19:26 Blood Pressure Position Sitting 01/20/19 19:26 Pulse Oximetry 98 01/20/19 19:26 Oxygen Delivery Method Room Air 01/20/19 19:26 Oxygen Flow Rate 0 01/20/19 19:26 Pain Level 0 01/20/19 19:26
--- NOTE | 2019-01-21 08:41 | PDOC.ERCMPRO ---
Care Management Progress Note 01/21-Patient lives in [place] so is a [facility]. Called [facility] and spoke with Asa. Asa states that patient is not currently active but has been a client of theirs. Discussed patient needing nursing for wound care. Referral along with Face to face faxed to [facility] and hospice.
== END 2019-01-20 19:59 | disposition home or self-care (01) ==
PROVIDERS: Emergency Provider Emergency Medicine; PCP Family Medicine
DX: L89.621 Pressure ulcer of left heel, stage 1 (principal); F03.90 Unspecified dementia, unspecified severity, without behavioral disturbance, psychotic disturbance, mood disturbance, and anxiety
CPT/HCPCS: 99282

== ENCOUNTER 2019-02-13 16:02 | Emergency (ER) | payer MEDICARE, SELFPAY ==
[2019-02-13 16:13] VITALS: BP 136/79; PULSE 75; RESP 16; TEMP 36.6; O2SAT 98
[2019-02-13 17:24] LABS: Bilirubin Negative (Negative); Blood Trace-intact (Negative); Clarity Clear; Glucose Negative (Negative); Ketones Negative (Negative); Leukocyte Esterase Small (Negative); Nitrite Positive (Negative); Specific Gravity 1.015 (1.005-1.025); Urobilinogen 0.2 EU/dL (Up TO 0.2)
[2019-02-13 17:32] LABS: Bacteria Many HPF (Negative); C & S Indicated? Yes; Casts Negative LPF (Negative); Crystals Negative HPF (Negative); Epithelial Cells Negative HPF (Negative); Mucus Negative (Negative); Other Cells Negative (Negative); RBC Negative (0-2); WBC 20-50 HPF (0-5)
[2019-02-13] MEDS: Cephalexin 500 MG CAP PO (17:55)
--- NOTE | 2019-02-13 18:18 | ED.GENADUL_ITS ---
Discharge Plan Disposition Patient Disposition: HOME Discharge Details Chief Complaint: Urinary Clinical Impression: Acute UTI, Confusion Primary Care Provider: Elizabeth Corral ED Provider: Hal Bowden Home Meds and New Rx's Prescriptions: New cephalexin 500 mg tablet 500 mg PO BID Qty: 13 RF: 0 Continued sertraline 100 MG tablet 150 mg PO DAILY RF: 0 atorvastatin [Lipitor] 40 MG tablet 40 mg PO QPM Qty: 30 RF: 0 metoprolol succinate 50 MG tablet extended release 24 hr 50 mg PO BID RF: 0 Myrbetriq 25 MG tablet extended release 24 hr 50 mg PO DAILY RF: 0 acetaminophen 325 mg Tablet 325 mg PO BID PRNRF: 0 Eliquis 5 mg Tablet 5 mg PO HS RF: 0 digoxin [Digox] 125 mcg Tablet 125 mcg PO DAILY RF: 0 cranberry 500 mg Capsule 1 tab/day PO BID RF: 0 Discharge Instructions Additional Instructions: Please take antibiotic as prescribed. Please contact your primary care physician to arrange follow-up. Return to the ER for any worsening or new concerning symptoms. Referrals: Elizabeth Corral [Primary Care Provider] - Medical Decision Making 73-year-old female with multiple medical problems including history of CVA, dementia, frequent urinary tract infections, here with increased confusion and incontinence To prior UTIs. Patient is hemodynamically stable. She does not appear septic. Urinalysis reviewed and consistent with UTI. I obtained and reviewed previous urinary culture from 09/09/2018 that revealed greater than 100,000 E. coli that was pansensitive. Plan to initiate treatment with Keflex. Plan to have her follow-up with her primary care physician. I explained to the patient and her son that symptoms are likely secondary to urinary tract infection but that we were not ruling out other potential etiologies for confusion -including life-threatening or lifestyle modifying disease. I offered to perform additional diagnostic testing and son provided informed refusal of additional diagnostics and care. They will follow-up with primary care physician and return should she have any worsening or new concerning symptoms per HPI General Mode of arrival: ambulatory . Date/Time Provider Initiated Documentation: 02/13/19 16:46 . Limitations to Documentation: no limitations . Information obtained by: patient and family (father) . HPI Narrative: 73-year-old female with history of left MCA stroke, atrial fibrillation, cardiomyopathy, frequent urinary tract infections, here with her son who is concerned that she has had increased urinary incontinence and increased confusion over the past 3 days. He is concerned for potential urinary tract infection as symptoms are similar to when she has had urinary tract infections in the past. Last urinary tract infection was a few months ago per her son per son. History and review of systems is limited secondary to dementia. Son notes that she has not complained of any pain and has not had fever. Related Data Home Medications Medication Instructions Recorded Confirmed sertraline 150 mg PO DAILY 08/27/16 02/13/19 atorvastatin [Lipitor] 40 mg PO QPM #30 tab 09/05/16 02/13/19 metoprolol succinate 50 mg PO BID 03/25/18 02/13/19 Myrbetriq 50 mg PO DAILY 06/25/18 02/13/19 acetaminophen 325 mg PO BID PRN 08/10/18 01/20/19 Eliquis 5 mg PO HS 01/20/19 02/13/19 cranberry 1 tab/day PO BID 01/20/19 02/13/19 digoxin [Digox] 125 mcg PO DAILY 01/20/19 02/13/19 cephalexin 500 mg PO BID #13 tab 02/13/19 Previous Rx's Medication Instructions Recorded atorvastatin [Lipitor] 40 mg PO QPM #30 tab 09/05/16 cephalexin 500 mg PO BID #13 tab 02/13/19 Allergies Allergy/AdvReac Type Severity Reaction Status Date / Time codeine Allergy Unknown Unverified 02/13/19 16:16 erythromycin base Allergy Unknown Unverified 02/13/19 16:16 General Stated Complaint: Urinary YI: 3 Review of Systems Review of Systems Unobtainable due to mental status Constitutional Denies fever(s) Genitourinary Reports as per [facility] Social History Smoking/Tobacco Use Status: Never Drug use: Never Do you feel safe in your relationship?: Yes Exam Const General: cooperative and no acute distress HENMT Mouth: moist mucous membranes Eyes Conjunctivae: normal conjunctivae Sclera: normal sclerae EOM: EOM intact bilaterally Resp Auscultation: clear to auscultation bilaterally, no rales, no rhonchi and no wheezes Cardio Rate: regular rate and not tachycardic Rhythm: abnormal rhythm irregularly irregular GI Palpation: soft, not firm, no guarding, no masses, not rigid and nontender Skin General skin exam: no rashes or lesions noted Neuro General: alert, awake, tone normal and other (confused) Cognition: abnormal cognition Motor: muscle tone normal throughout and other (Maranda) Extrem General: no edema Course Vital Signs Temperature 36.6 C 02/13/19 16:13 Pulse 75 02/13/19 16:13 Respiratory Rate 16 02/13/19 16:13 Blood Pressure 136/79 02/13/19 16:13 Pulse Oximetry 98 02/13/19 16:13 Temperature 36.6 C 02/13/19 16:13 Temperature Source Skin 02/13/19 16:13 Pulse 75 02/13/19 16:13 Respiratory Rate 16 02/13/19 16:13 Respiratory Effort Non-Labored 02/13/19 16:13 Blood Pressure 136/79 02/13/19 16:13 Blood Pressure Position Sitting 02/13/19 16:13 Pulse Oximetry 98 02/13/19 16:13 Oxygen Delivery Method Room Air 02/13/19 16:13 Oxygen Flow Rate 0 02/13/19 16:13 Pain Level 0 02/13/19 16:43 Lab/Test Results Lab/Test Results: 02/13/19 17:05 Urine - Reflex from Ua Urine Culture - Pending Laboratory Tests Range/Units 02/13/19 17:05 Urine Color (Yellow) Yellow Urine Clarity Clear Urine pH (5-8) 7.0 Ur Specific Maple (1.005-1.025) 1.015 Urine Protein (Negative) mg/dL Negative Urine Ketones (Negative) mg/dL Negative Urine Blood (Negative) Trace-intact H Urine Nitrite (Negative) Positive H Urine Bilirubin (Negative) Negative Urine Urobilinogen (Up TO 0.2) EU/dL 0.2 Ur Leukocyte Esterase (Negative) Small H Urine RBC (0-2) Negative Urine WBC (0-5) HPF 20-50 Ur Epithelial Cells (Negative) HPF Negative Urine Crystals (Negative) HPF Negative Urine Bacteria (Negative) HPF Many Urine Casts (Negative) LPF Negative Urine Mucus (Negative) Negative Urine Other (Negative) Negative Ur Culture Indicated? Yes Urine Glucose (Negative) mg/dL Negative
[2019-02-13 18:30] VITALS: BP 128/76; PULSE 75; RESP 16; TEMP 36.8; O2SAT 96
== END 2019-02-13 18:25 | disposition home or self-care (01) ==
PROVIDERS: Emergency Provider Student in an Organized Health Care Education/Training Program; PCP Family Medicine
DX: N39.0 Urinary tract infection, site not specified (principal); B96.20 Unspecified Escherichia coli [E. coli] as the cause of diseases classified elsewhere; R41.0 Disorientation, unspecified; F03.90 Unspecified dementia, unspecified severity, without behavioral disturbance, psychotic disturbance, mood disturbance, and anxiety
CPT/HCPCS: 87077; 99283; 81003; 81015; 87086; 87186

== ENCOUNTER 2019-03-18 00:59 | Outpatient (CLI) | payer MEDICARE, SELFPAY ==
--- NOTE | 2019-03-18 13:36 | DI.US_ITS ---
SYMPTOMS/DIAGNOSIS: SWOLLEN LIMB, R22.9, ? DVT LEFT LOWER EXTREMITY ULTRASOUND: The deep veins of the left lower extremity show normal compression, augmentation and color flow. There is no evidence of a deep venous thrombus in the left lower extremity. The saphenofemoral junction appears grossly unremarkable. No focal fluid collection is seen in the soft tissues. IMPRESSION: No evidence of a left lower extremity deep venous thrombus.
== END 2019-03-18 01:19 ==
PROVIDERS: PCP Family Medicine; Visit Provider Family Medicine
DX: R22.42 Localized swelling, mass and lump, left lower limb (principal)
CPT/HCPCS: 93971

== ENCOUNTER 2019-05-01 17:53 | Outpatient (REF) | payer MEDICARE, SELFPAY | END 2019-05-01 18:13 | LOC: NCHCN 17:53 | PROVIDERS: PCP Family Medicine; Visit Provider Nurse Practitioner Family | DX: R32 Unspecified urinary incontinence (principal) | CPT/HCPCS: 87086 ==

== ENCOUNTER 2019-05-19 00:34 | Inpatient (IN) | payer MEDICARE, SELFPAY ==
[2019-05-19] VITALS (36 sets, daily range): BP systolic 108–178; BP diastolic 56–110; PULSE 66–94; RESP 7–31; TEMP 36.3–37.7; O2SAT 91–99
--- NOTE | 2019-05-19 00:48 | W.ED.GENAD ---
Discharge Plan Disposition Patient Disposition: [facility] INPATIENT Condition: Good Discharge Details Chief Complaint: Orthopedic Clinical Impression: Closed intertrochanteric fracture of left hip Admit Date/Time: 05/19/19 02:57 Admit Provider: Nando Ruiz Attending Provider: Nando Ruiz Primary Care Provider: Elizabeth Corral ED Provider: Paris Michel Discharge Data Discharge Date/Time-TO BE ENTERED AT DEPARTURE: 05/19/19 04:42 Medical Decision Making 0045 --74-year-old female with history of atrial fibrillation on eliquis, CHF, dementia and CVA who presents with left hip pain status post unwitnessed fall at home 1 hour prior to arrival. No reported head injury. EMS discussed with family who will be coming to ED and noted that patient is at her mental status baseline at present. Significant pain in and pt holding left hip with transferring to stretcher in ED. No obvious deformity noted. No open wounds. Neurovascularly intact. No other trauma noted on exam. Will check screening labs, EKG, chest x-ray and pelvis x-ray. EKG notes a rate of 88, atrial fibrillation, right bundle branch block, no acute ST-T wave ischemic changes and no acute change compared to previous EKG. 0150 --left hip and pelvis x-ray read as negative for acute fracture but appears there is an intertrochanteric fracture. Patient still in a significant amount of pain while adjusting her in bed and suspicion is high for fracture. Will send for pelvic CT and give a dose of fentanyl. 0230 --CT notes left intertrochanteric hip fracture. 0250 --discussed with Dr. Mcclendon - will evaluate pt tomorrow. Will likely need to delay surgery due to eliquis. 0300 --d/w hospitalist - accepts pt for admission. Medical Records Medical records reviewed: Yes I reviewed the patient's medical records. Imaging Data Radiologic Study: Radiologist's impression: XR Chest, 1 View EXAM DATE/TIME: 05/19/2019 12:46 AM CLINICAL HISTORY: 74 years old, female; Pain; Other: Unknown; Prior surgery; Surgery date: 6+ months; Surgery type: Heart; Patient HX: Fall, dementia TECHNIQUE: Imaging protocol: XR of the chest, 1 view. COMPARISON: CR XR ribs RT w PA lat chest 08/10/2018 1:47 PM FINDINGS: Lungs: Unremarkable. No consolidation. Pleural space: Unremarkable. No evidence of pneumothorax. Heart/Mediastinum: Unremarkable. Heart size within normal limits for technique. Bones/joints: Unremarkable. IMPRESSION: No acute findings. XR Left Hip with Pelvis when Performed EXAM DATE/TIME: 05/19/2019 12:46 AM CLINICAL HISTORY: 74 years old, female; Injury or trauma; Initial encounter; Blunt trauma (contusions or hematomas); Left; Hip; Injury date: 05/18/19; Patient HX: Fall, dementia TECHNIQUE: Imaging protocol: XR Left hip with pelvis when performed. Views: 2 or 3 views. COMPARISON: No relevant prior studies available. FINDINGS: Bones/joints: Old right pelvic fracture deformities. No evidence of acute fracture. Soft tissues: Unremarkable. IMPRESSION: No acute findings. CT Pelvis Without Contrast, Skeletal EXAM DATE/TIME: 05/19/2019 1:58 AM CLINICAL HISTORY: 74 years old, female; Injury or trauma; Initial encounter; Blunt trauma (contusions or hematomas); Injury date: Fall, unwitnessed, dementia PT; Injury details: Severe left hip pain after negative x-ray; Patient HX: Severe L hip pain; Additional info: Prior pelvis FX TECHNIQUE: Imaging protocol: Axial computed tomography images of the pelvis without intravenous contrast. Exam focused on the skeletal structures. Coronal and sagittal reformatted images were created and reviewed. Radiation optimization: All CT scans at this facility use at least one of these dose optimization techniques: automated exposure control; mA and/or kV adjustment per patient size (includes targeted exams where dose is matched to clinical indication); or iterative reconstruction. COMPARISON: CT PELVIC/LOWER ABD WITHOUT CONT 11/09/2017 1:32 AM FINDINGS: Bones/joints: Old right pubic rami fracture deformities. Nondisplaced fracture line through the intertrochanteric region of the left hip. Soft tissues: Unremarkable. IMPRESSION: Left hip has a nondisplaced intertrochanteric fracture. Lab Data Lab results reviewed: Yes I reviewed the patient's lab results. Laboratory Tests Range/Units 05/19/19 05/19/19 05/19/19 00:55 00:55 00:55 WBC (4.4-10.8) k/cumm 12.70 H RBC (4.00-5.20) m/cumm 5.73 H Hgb (12.0-15.5) g/dL 16.7 H Hct (36.0-46.0) % 49.6 H MCV (80-95) fL 86.6 MCH (27.0-33.0) pg 29.1 MCHC (32.0-36.0) g/dL 33.7 RDW (11.7-14.6) % 14.4 Plt Count (130-400) x1000/uL 173 MPV (8.0-11.0) fL 10.8 Immature Gran % 0.4 Neutrophils % 73.8 Lymphocytes % 19.5 Monocytes % 4.4 Eosinophils % 1.5 Basophils % 0.4 Absolute Neutrophils (1.2-6.7) k/cumm 9.37 H Absolute Lymphocytes (1.2-3.4) k/cumm 2.48 Absolute Monocytes (0.11-0.7) k/cumm 0.56 Absolute Eosinophils (0.0-0.7) k/cumm 0.19 Absolute Basophils (0.0-0.2) k/cumm 0.05 PT (9.3-11.0) sec INR (0.9-1.1) Sodium (136-145) mmol/L 141 Potassium (3.5-5.1) mmol/L 3.9 Chloride (98-107) mmol/L 106 Carbon Dioxide (21.0-32.0) mmol/L 26.6 Anion Gap (3-11) mmol/L 8.4 BUN (7-18) mg/dL 17 Creatinine (0.55-1.02) mg/dL 0.84 Estimated GFR/1.73 m2 (mL/min/1.73m2) >= 60.00 Glucose (70-100) mg/dL 133 H Calcium (8.5-10.1) mg/dL 8.4 L Magnesium (1.8-2.4) mg/dL 1.9 Total Bilirubin (0.2-1.0) mg/dL 0.5 AST (15-37) U/L 19 ALT (12-78) U/L 29 Alkaline Phosphatase (46-116) U/L 98 Troponin I (0.00-0.06) ng/mL < 0.05 Total Protein (6.4-8.2) g/dL 6.4 Albumin (3.4-5.0) g/dL 3.2 L TSH (0.358-3.74) uIU/mL Urine Color (Yellow) Urine Clarity (Clear) Urine pH (5-8) Ur Specific [place] (1.005-1.025) Urine Protein (Negative) mg/dL Urine Ketones (Negative) mg/dL Urine Blood (Negative) Urine Nitrite (Negative) Urine Bilirubin (Negative) Urine Urobilinogen (Up TO 0.2) EU/dL Ur Leukocyte Esterase (Negative) Urine RBC (0-2) Urine WBC (0-5) HPF Ur Epithelial Cells (Negative) HPF Urine Crystals (Negative) HPF Urine Bacteria (Negative) HPF Urine Casts (Negative) LPF Urine Mucus (Negative) Urine Other (Negative) Ur Culture Indicated? Urine Glucose (Negative) mg/dL Digoxin (0.90-2.00) ng/mL 0.80 L Patient ABO/Rh Antibody Screen Range/Units 05/19/19 05/19/19 05/19/19 06:36 06:40 07:00 WBC (4.4-10.8) k/cumm RBC (4.00-5.20) m/cumm Hgb (12.0-15.5) g/dL Hct (36.0-46.0) % MCV (80-95) fL MCH (27.0-33.0) pg MCHC (32.0-36.0) g/dL RDW (11.7-14.6) % Plt Count (130-400) x1000/uL MPV (8.0-11.0) fL Immature Gran % Neutrophils % Lymphocytes % Monocytes % Eosinophils % Basophils % Absolute Neutrophils (1.2-6.7) k/cumm Absolute Lymphocytes (1.2-3.4) k/cumm Absolute Monocytes (0.11-0.7) k/cumm Absolute Eosinophils (0.0-0.7) k/cumm Absolute Basophils (0.0-0.2) k/cumm PT (9.3-11.0) sec 10.8 INR (0.9-1.1) 1.1 Sodium (136-145) mmol/L Potassium (3.5-5.1) mmol/L Chloride (98-107) mmol/L Carbon Dioxide (21.0-32.0) mmol/L Anion Gap (3-11) mmol/L BUN (7-18) mg/dL Creatinine (0.55-1.02) mg/dL Estimated GFR/1.73 m2 (mL/min/1.73m2) Glucose (70-100) mg/dL Calcium (8.5-10.1) mg/dL Magnesium (1.8-2.4) mg/dL Total Bilirubin (0.2-1.0) mg/dL AST (15-37) U/L ALT (12-78) U/L Alkaline Phosphatase (46-116) U/L Troponin I (0.00-0.06) ng/mL Total Protein (6.4-8.2) g/dL Albumin (3.4-5.0) g/dL TSH (0.358-3.74) uIU/mL Urine Color (Yellow) Yellow Urine Clarity (Clear) Clear Urine pH (5-8) 8.5 H Ur Specific [place] (1.005-1.025) 1.020 Urine Protein (Negative) mg/dL Trace H Urine Ketones (Negative) mg/dL Negative Urine Blood (Negative) Trace-intact H Urine Nitrite (Negative) Negative Urine Bilirubin (Negative) Negative Urine Urobilinogen (Up TO 0.2) EU/dL 0.2 Ur Leukocyte Esterase (Negative) Negative Urine RBC (0-2) 3-5 H Urine WBC (0-5) HPF 0-2 Ur Epithelial Cells (Negative) HPF Moderate Urine Crystals (Negative) HPF Negative Urine Bacteria (Negative) HPF Few Urine Casts (Negative) LPF Negative Urine Mucus (Negative) Trace Urine Other (Negative) Rare renal Ur Culture Indicated? No Urine Glucose (Negative) mg/dL Negative Digoxin (0.90-2.00) ng/mL Patient ABO/Rh A Positive Antibody Screen Negative Range/Units 05/19/19 05/19/19 08:10 11:00 WBC (4.4-10.8) k/cumm RBC (4.00-5.20) m/cumm Hgb (12.0-15.5) g/dL Hct (36.0-46.0) % MCV (80-95) fL MCH (27.0-33.0) pg MCHC (32.0-36.0) g/dL RDW (11.7-14.6) % Plt Count (130-400) x1000/uL MPV (8.0-11.0) fL Immature Gran % Neutrophils % Lymphocytes % Monocytes % Eosinophils % Basophils % Absolute Neutrophils (1.2-6.7) k/cumm Absolute Lymphocytes (1.2-3.4) k/cumm Absolute Monocytes (0.11-0.7) k/cumm Absolute Eosinophils (0.0-0.7) k/cumm Absolute Basophils (0.0-0.2) k/cumm PT (9.3-11.0) sec INR (0.9-1.1) Sodium (136-145) mmol/L Potassium (3.5-5.1) mmol/L Chloride (98-107) mmol/L Carbon Dioxide (21.0-32.0) mmol/L Anion Gap (3-11) mmol/L BUN (7-18) mg/dL Creatinine (0.55-1.02) mg/dL Estimated GFR/1.73 m2 (mL/min/1.73m2) Glucose (70-100) mg/dL Calcium (8.5-10.1) mg/dL Magnesium (1.8-2.4) mg/dL Total Bilirubin (0.2-1.0) mg/dL AST (15-37) U/L ALT (12-78) U/L Alkaline Phosphatase (46-116) U/L Troponin I (0.00-0.06) ng/mL < 0.05 < 0.05 Total Protein (6.4-8.2) g/dL Albumin (3.4-5.0) g/dL TSH (0.358-3.74) uIU/mL 3.27 Urine Color (Yellow) Urine Clarity (Clear) Urine pH (5-8) Ur Specific [place] (1.005-1.025) Urine Protein (Negative) mg/dL Urine Ketones (Negative) mg/dL Urine Blood (Negative) Urine Nitrite (Negative) Urine Bilirubin (Negative) Urine Urobilinogen (Up TO 0.2) EU/dL Ur Leukocyte Esterase (Negative) Urine RBC (0-2) Urine WBC (0-5) HPF Ur Epithelial Cells (Negative) HPF Urine Crystals (Negative) HPF Urine Bacteria (Negative) HPF Urine Casts (Negative) LPF Urine Mucus (Negative) Urine Other (Negative) Ur Culture Indicated? Urine Glucose (Negative) mg/dL Digoxin (0.90-2.00) ng/mL Patient ABO/Rh Antibody Screen Some lab results uploaded after pt already admitted to floor and not obtained during my care in the ED. ECG Data Attestation: I personally reviewed and interpreted this ECG (s) as follows: Interpretation: Rate of 88, A. fib, right bundle branch block, no acute ST elevation or depression. QTc 508. QRS 146. No acute change from previous EKG. HPI General Mode of arrival: EMS. Date/Time Provider Initiated Documentation: 05/19/19 00:34. Limitations to Documentation: altered mental status. Information obtained by: patient and EMS. 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 EMS states that patient's or son called the ambulance after she fell while turning near her front door. Patient is a very poor historian, but EMS states that family noted patient complained of left hip pain. No reported history of head injury or any other injuries. Patient was given fentanyl en route. Related Data Home Medications Medication Instructions Recorded Confirmed sertraline 150 mg PO DAILY 08/27/16 05/19/19 atorvastatin [Lipitor] 40 mg PO QPM #30 tab 09/05/16 05/19/19 metoprolol succinate 50 mg PO BID 03/25/18 05/19/19 Myrbetriq 50 mg PO BID 06/25/18 05/19/19 acetaminophen 325 mg PO BID PRN 08/10/18 05/19/19 Eliquis 5 mg PO HS 01/20/19 05/19/19 cranberry 2 tab/day PO BID 01/20/19 05/19/19 digoxin [Digox] 125 mcg PO DAILY 01/20/19 05/19/19 cephalexin 500 mg PO BID #13 tab 02/13/19 05/19/19 pumpkin seed extract-soy germ [Azo 1 cap PO BID 05/19/19 05/19/19 Bladder Control] Previous Rx's Medication Instructions Recorded atorvastatin [Lipitor] 40 mg PO QPM #30 tab 09/05/16 cephalexin 500 mg PO BID #13 tab 02/13/19 Allergies Allergy/AdvReac Type Severity Reaction Status Date / Time codeine Allergy Unknown Unverified 05/19/19 01:38 erythromycin base Allergy Unknown Unverified 05/19/19 01:38 General Stated Complaint: Orthopedic YI: 3 Review of Systems Review of Systems All systems reviewed & are unremarkable except as noted in HPI and below Constitutional Reports as per HPI, Denies chills and Denies fever(s) Eyes Denies blurry vision ENT Denies dizziness, Denies sore throat and Denies throat swelling Cardiovascular Denies chest pain and Denies dyspnea Respiratory Denies cough and Denies dyspnea Gastrointestinal Denies abdominal pain, Denies diarrhea and Denies vomiting Genitourinary Denies hematuria and Denies dysuria Musculoskeletal Denies back pain, Denies numbness and Reports other (L hip pain) Integumentary/Breasts Denies lesions and Denies rash Neurologic Denies dizziness, Denies focal weakness and Denies numbness Allergic/Immunologic Denies throat swelling [facility] Medical History MVP (mitral valve prolapse) (Acute) Atrial fibrillation (Chronic) CHF (congestive heart failure) (Chronic) CVA (cerebral vascular accident) (Chronic) Depression (Chronic) Surgical History H/O mitral valve repair (Acute) History of bladder surgery (Acute) History of hysterectomy (Chronic) History of knee replacement (Chronic) Hx of cholecystectomy (Chronic) Social History Smoking/Tobacco Use Status: Never Alcohol Intake: never Drug use: Never Do you feel safe in your relationship?: Yes Exam Const General: cooperative, healthy appearing and no acute distress HENNY Head: normal to inspection Face and sinus: normal facial exam Eyes General: appearance normal, both eyes and all related structures Pupils: PERRL EOM: EOM intact bilaterally Neck Neck: normal visual inspection and No submandibular swelling Lymphatic: no lymphadenopathy noted Chest Chest: normal inspection of the chest and no tenderness Resp Effort & Inspection: normal respiratory effort and able to speak in complete sentences Auscultation: clear to auscultation bilaterally Cardio Rate: regular rate Rhythm: regular rhythm GI Inspection: normal to inspection Palpation: soft, not firm, not rigid and nontender Auscultation: normal bowel sounds Back/Spine/Pelvis Cervical Spine: No cervical spinal tenderness Thoracic/Lumbar Spine: thoracic and lumbar spine normal to inspection, No thoracic spinal tenderness and No lumbar spinal tenderness Pelvis: other Coccyx: other Skin General skin exam: no rashes or lesions noted Neuro General: alert, awake and oriented x3 Cognition: normal cognition Speech: speech normal Motor: muscle tone normal throughout Sensory Exam: no sensory deficits noted Extrem Other: Unable to move left hip due to pain. Tenderness to palpation left lateral hip. No left lower extremity shortening or external rotation. No pain with range of motion in right lower extremity or bilateral upper extremities. Bilateral DP/PT pulses intact. Old left foot wounds with skin avulsions and scaling but no acute signs of infection. Psych Appearance: grossly normal Mental Status: mental status grossly normal Speech and Movement: speech and movement normal Affect: normal affect Course Vital Signs Temperature 97.9 F 05/19/19 00:37 Pulse 80 05/19/19 00:37 Respiratory Rate 18 05/19/19 00:37 Blood Pressure 147/94 H 05/19/19 00:37 Pulse Oximetry 95 05/19/19 00:37 Temperature 97.9 F 05/19/19 00:37 Temperature Source Temporal Artery Scan 05/19/19 00:37 Pulse 80 05/19/19 00:37 Respiratory Rate 18 05/19/19 00:37 Respiratory Effort 05/19/19 00:37 Blood Pressure 147/94 H 05/19/19 00:37 Pulse Oximetry 95 05/19/19 00:37 Oxygen Delivery Method Room Air 05/19/19 00:37 Oxygen Flow Rate 0 05/19/19 00:37 Pain Level 10 05/19/19 00:37
[2019-05-19 01:04] LABS: Abs Immature Grans 0.05 k/cumm (0.0-0.09); Absolute Basophil Count 0.05 k/cumm (0.0-0.2); Absolute Eosinophil Count 0.19 k/cumm (0.0-0.7); Absolute Lymphocyte Count 2.48 k/cumm (1.2-3.4); Absolute Monocyte Count 0.56 k/cumm (0.11-0.7); Absolute Neutrophil Count 9.37 k/cumm (1.2-6.7); Basophils % 0.4; Eosinophils % 1.5; HCT 49.6 % (36.0-46.0); HGB 16.7 g/dL (12.0-15.5); Immature Grans % 0.4; Lymphocytes % 19.5; Mean Corp. HGB Concentration 33.7 g/dL (32.0-36.0); Mean Corpuscular Hemoglobin 29.1 pg (27.0-33.0); Mean Corpuscular Volume 86.6 fL (80-95); Mean Platelet Volume 10.8 fL (8.0-11.0); Monocytes % 4.4; Neutrophils % 73.8; Platelet Count 173 x1000/uL (130-400); RBC 5.73 m/cumm (4.00-5.20); RBC Distribution Width 14.4 % (11.7-14.6)
[2019-05-19 01:20] LABS: ALT 29 U/L (12-78); AST 19 U/L (15-37); Albumin 3.2 g/dL (3.4-5.0); Alkaline Phosphatase 98 U/L (46-116); Anion Gap 8.4 mmol/L (3-11); BUN 17 mg/dL (7-18); Bilirubin, Total 0.5 mg/dL (0.2-1.0); CO2 26.6 mmol/L (21.0-32.0); CREATININE 0.84 mg/dL (0.55-1.02); Calcium 8.4 mg/dL (8.5-10.1); Chloride 106 mmol/L (98-107); Glucose 133 mg/dL (70-100); Magnesium 1.9 mg/dL (1.8-2.4); Potassium 3.9 mmol/L (3.5-5.1); Sodium 141 mmol/L (136-145); Total Protein 6.4 g/dL (6.4-8.2)
--- NOTE | 2019-05-19 01:25 | DI.RAD_ITS ---
SYMPTOM/DIAGNOSIS: S/P FALL, R/O ACUTE FRACTURE PELVIS AND LEFT HIP: Comparison is made with 25 June 2018 There is an intertrochanteric fracture of the left femur which is nondisplaced. There are old right superior and inferior pubic ramus fractures. There is spurring from both acetabula. The hip joint spaces are well maintained. The SI joints are not widened. There are degenerative changes of the lower lumbar spine. IMPRESSION: Intertrochanteric fracture of the left femur.
--- NOTE | 2019-05-19 01:25 | DI.RAD_ITS ---
SYMPTOM/DIAGNOSIS: S/P FALL, R/O ACUTE FRACTURE SUPINE CHEST: Comparison is made with 10 Aug 2018. The heart is grossly enlarged. A valve prosthesis is again noted. The lungs show fibrotic changes. There is no gross evidence of pneumothorax. IMPRESSION: No acute abnormality. Cardiomegaly.
[2019-05-19 01:29] LABS: Troponin I < 0.05 ng/mL (0.00-0.06)
--- NOTE | 2019-05-19 01:56 | DI.VRAD_ITS ---
EXAM: XR Left Hip with Pelvis when Performed EXAM DATE/TIME: 05/19/2019 12:46 AM CLINICAL HISTORY: 74 years old, female; Injury or trauma; Initial encounter; Blunt trauma (contusions or hematomas); Left; Hip; Injury date: 05/18/19; Patient HX: Fall, dementia TECHNIQUE: Imaging protocol: XR Left hip with pelvis when performed. Views: 2 or 3 views. COMPARISON: No relevant prior studies available. FINDINGS: Bones/joints: Old right pelvic fracture deformities. No evidence of acute fracture. Soft tissues: Unremarkable. IMPRESSION: No acute findings. Dictated and Authenticated by: Nj Castillo MD. Ordering:DAWNA Toledo MD
--- NOTE | 2019-05-19 01:56 | DI.VRAD_ITS ---
EXAM: XR Chest, 1 View EXAM DATE/TIME: 05/19/2019 12:46 AM CLINICAL HISTORY: 74 years old, female; Pain; Other: Unknown; Prior surgery; Surgery date: 6+ months; Surgery type: Heart; Patient HX: Fall, dementia TECHNIQUE: Imaging protocol: XR of the chest, 1 view. COMPARISON: CR XR ribs RT w PA lat chest 08/10/2018 1:47 PM FINDINGS: Lungs: Unremarkable. No consolidation. Pleural space: Unremarkable. No evidence of pneumothorax. Heart/Mediastinum: Unremarkable. Heart size within normal limits for technique. Bones/joints: Unremarkable. IMPRESSION: No acute findings. Dictated and Authenticated by: Nj Castillo MD. Ordering:DAWNA Toledo MD
--- NOTE | 2019-05-19 01:57 | DI.CT_ITS ---
SYMPTOM/DIAGNOSIS; S/P FALL, R/O ACUTE FRACTURE LT HIP CT PELVIS: Comparison is made with plain film performed earlier the same day There is an acute intertrochanteric fracture of the left femur which is nondisplaced No additional acute fractures are seen. The bones appear osteoporotic. There are old healed fractures of the right superior and inferior pubic rami. Severe degenerative changes are seen in the lower lumbar spine. IMPRESSION: Nondisplaced intertrochanteric fracture of the left femur.
--- NOTE | 2019-05-19 02:59 | DI.VRAD_ITS ---
EXAM: CT Pelvis Without Contrast, Skeletal EXAM DATE/TIME: 05/19/2019 1:58 AM CLINICAL HISTORY: 74 years old, female; Injury or trauma; Initial encounter; Blunt trauma (contusions or hematomas); Injury date: Fall, unwitnessed, dementia PT; Injury details: Severe left hip pain after negative x-ray; Patient HX: Severe L hip pain; Additional info: Prior pelvis FX TECHNIQUE: Imaging protocol: Axial computed tomography images of the pelvis without intravenous contrast. Exam focused on the skeletal structures. Coronal and sagittal reformatted images were created and reviewed. Radiation optimization: All CT scans at this facility use at least one of these dose optimization techniques: automated exposure control; mA and/or kV adjustment per patient size (includes targeted exams where dose is matched to clinical indication); or iterative reconstruction. COMPARISON: CT PELVIC/LOWER ABD WITHOUT CONT 11/09/2017 1:32 AM FINDINGS: Bones/joints: Old right pubic rami fracture deformities. Nondisplaced fracture line through the intertrochanteric region of the left hip. Soft tissues: Unremarkable. IMPRESSION: Left hip has a nondisplaced intertrochanteric fracture. Dictated and Authenticated by: Nj Castillo MD. Ordering:DAWNA Toledo MD
[2019-05-19] MEDS: Normal Saline Flush 10 ML SYR IVP ×7 (03:09→20:40)
[2019-05-19] MEDS: fentaNYL 100 MCG/2 ML VIAL 50 MCG IVP ×7 (03:09→20:39)
--- NOTE | 2019-05-19 06:32 | HPE_ITS ---
Date of service: 05/19/19 Time of Service: 06:28 Assessment and Plan (1) Intertrochanteric fracture of left femur: Start date: 05/18/19 Current visit: Yes Status: Acute This is a 74-year-old lady with a fall at home during the night sustaining a left closed nondisplaced intertrochanteric fracture seen by CT scan only. She is severely demented and uncooperative with exam but with pain control this may be improved. She is on Eliquis chronically for atrial fibrillation and this will be held with heparin temporarily and also to be held prior to surgery. This can be discussed with the orthopedic surgeon who has been consulted. For now she was given breakfast at least knowing that she will not go to surgery today. Because of her fall not being witnessed and patient not being able to give accurate history, her cardiac monitoring will be continued with telemetry and we will trend her troponins. She is a DNR/DNI. Her EKG did show right bundle branch block with no acute ST-T changes or ischemic changes observed. Qualifiers: Encounter type: initial encounter Fracture type: closed Fracture alignment: nondisplaced Qualified Code(s): S72.145A - Nondisplaced intertrochanteric fracture of left femur, initial encounter for closed fracture (2) Atrial fibrillation: Current visit: No Status: Chronic This appears to be controlled with her present medical regimen except for her pain causing some slight tachycardia at times. Continue cardiac monitoring with trending troponins and hold Eliquis. Qualifiers: Atrial fibrillation type: chronic Qualified Code(s): I48.2 - Chronic atrial fibrillation (3) Dementia: Current visit: Yes Status: Chronic This appears to be at baseline with the patient is not in pain but it appears severe with behavioral disturbances on sertraline chronically. He does require 24-hour care at home. Plans are to return home. She is a DNR/DNI. Qualifiers: Dementia type: unspecified type Dementia behavioral disturbance: with behavioral disturbance Qualified Code(s): F03.91 - Unspecified dementia with behavioral disturbance History of Present Illness Chief Complaint: Unwitnessed fall with pain in left hip status post fall at home Narrative: This is a 74-year-old lady who lives with family and got up in the night falling with a family hearing noise as the patient fell trying to turn in front of her front door. She was found on the floor with left hip pain. EMS was called she was delivered to the ED within one hour with evaluation revealing an intertrochanteric fracture of the left hip by CT scan of pelvis and hip but nott seen on plain film x-ray. Patient is a very confused and slightly agitated with her pain having severe dementia thoug she was reported at her mental status baseline when arriving to ED. She is cared for by her family. ED report was reviewed. Family was not present during my exam. Review of Systems Review of Systems 13 point review of systems reviewed per ED document and history otherwise unrevealing or unobtainable secondary to dementia. Unobtainable due to mental condition (Reviewed record) [facility] Medical History MVP (mitral valve prolapse) (Acute) Atrial fibrillation (Chronic) CHF (congestive heart failure) (Chronic) CVA (cerebral vascular accident) (Chronic) Depression (Chronic) Surgical History H/O mitral valve repair (Acute) History of bladder surgery (Acute) History of hysterectomy (Chronic) History of knee replacement (Chronic) Hx of cholecystectomy (Chronic) Social History Smoking/Tobacco Use Status: Never Alcohol Intake: never Drug use: Never Do you feel safe in your relationship?: Yes Meds Home Medications Medication Instructions Recorded Confirmed Type sertraline 150 mg PO DAILY 08/27/16 05/19/19 History atorvastatin [Lipitor] 40 mg PO QPM #30 tab 09/05/16 05/19/19 Rx metoprolol succinate 50 mg PO BID 03/25/18 05/19/19 History Myrbetriq 50 mg PO BID 06/25/18 05/19/19 History acetaminophen 325 mg PO BID PRN 08/10/18 05/19/19 History Eliquis 5 mg PO HS 01/20/19 05/19/19 History cranberry 2 tab/day PO BID 01/20/19 05/19/19 History digoxin [Digox] 125 mcg PO DAILY 01/20/19 05/19/19 History cephalexin 500 mg PO BID #13 tab 02/13/19 05/19/19 Rx pumpkin seed extract-soy germ [Azo 1 cap PO BID 05/19/19 05/19/19 History Bladder Control] Allergies Allergy/AdvReac Type Severity Reaction Status Date / Time codeine Allergy Unknown Unverified 05/19/19 01:38 erythromycin base Allergy Unknown Unverified 05/19/19 01:38 Exam Narrative Exam Narrative: General: Patient is moderately obese lying in bed left leg straight and her right hip slightly flexed with a pillow between her legs. She is in obvious pain and agitated with confusion. She is not oriented to person, place or time. Patient not cooperative with exam appearing slightly paranoid. HEENT: Normocephalic, eyes with pupils equal reactive light symmetrically, extraocular movement intact and sclera anicteric. Oropharynx dry oral mucosa. Ears are normal. Neck: Supple without JVD. Lungs: Poor respiratory effort but clear to auscultation without focalizing rales or rhonchi. No Expiratory wheeze with normal inspiratory to expiratory phase ratio. Heart: Irregularly irregular rhythm but slightly tachycardic rate at times. No appreciable murmurs or gallop. Breast: Not examined. Abdomen: Obese contour, soft and nontender to palpation with no palpable hepatosplenomegaly. Bowel sounds are positive but hypoactive in all quadrants. Genitalia/Rectal: Not examined. Patient is tender to palpation of the left femoral area with a left hip fracture but no obvious swelling or bruising. Extremities: Nonpitting edema both lower extremities with left leg extended and tender to any movement, right hip flexed normal movement of the right lower extremity. Capillary refill and peripheral pulses intact. No clubbing or cyanosis. Skin: Pale, warm and dry. The ED Physician did notice old skin avulsions and abrasions with scaliness over the left foot with no signs of infection. Neuro: Decreased short-term and long-term memory, no focalizing motor deficits the patient moving all extremities without tremor. Cranial Nerves II through XII grossly intact. Results Imaging Imaging Studies: EXAM: CT Pelvis Without Contrast, Skeletal EXAM DATE/TIME: 05/19/2019 1:58 AM CLINICAL HISTORY: 74 years old, female; Injury or trauma; Initial encounter; Blunt trauma (contusions or hematomas); Injury date: Fall, unwitnessed, dementia PT; Injury details: Severe left hip pain after negative x-ray; Patient HX: Severe L hip pain; Additional info: Prior pelvis FX TECHNIQUE: Imaging protocol: Axial computed tomography images of the pelvis without intravenous contrast. Exam focused on the skeletal structures. Coronal and sagittal reformatted images were created and reviewed. Radiation optimization: All CT scans at this facility use at least one of these dose optimization techniques: automated exposure control; mA and/or kV adjustment per patient size (includes targeted exams where dose is matched to clinical indication); or iterative reconstruction. COMPARISON: CT PELVIC/LOWER ABD WITHOUT CONT 11/09/2017 1:32 AM FINDINGS: Bones/joints: Old right pubic rami fracture deformities. Nondisplaced fracture line through the intertrochanteric region of the left hip. Soft tissues: Unremarkable. IMPRESSION: Left hip has a nondisplaced intertrochanteric fracture. Dictated and Authenticated by: Nj Castillo MD EXAM: XR Chest, 1 View EXAM DATE/TIME: 05/19/2019 12:46 AM CLINICAL HISTORY: 74 years old, female; Pain; Other: Unknown; Prior surgery; Surgery date: 6+ months; Surgery type: Heart; Patient HX: Fall, dementia TECHNIQUE: Imaging protocol: XR of the chest, 1 view. COMPARISON: CR XR ribs RT w PA lat chest 08/10/2018 1:47 PM FINDINGS: Lungs: Unremarkable. No consolidation. Pleural space: Unremarkable. No evidence of pneumothorax. Heart/Mediastinum: Unremarkable. Heart size within normal limits for technique. Bones/joints: Unremarkable. IMPRESSION: No acute findings. Dictated and Authenticated by: Nj Castillo MD EXAM: XR Left Hip with Pelvis when Performed EXAM DATE/TIME: 05/19/2019 12:46 AM CLINICAL HISTORY: 74 years old, female; Injury or trauma; Initial encounter; Blunt trauma (contusions or hematomas); Left; Hip; Injury date: 05/18/19; Patient HX: Fall, dementia TECHNIQUE: Imaging protocol: XR Left hip with pelvis when performed. Views: 2 or 3 views. COMPARISON: No relevant prior studies available. FINDINGS: Bones/joints: Old right pelvic fracture deformities. No evidence of acute fracture. Soft tissues: Unremarkable. IMPRESSION: No acute findings. Dictated and Authenticated by: Nj Castillo MD. Labs : 05/19/19 00:55 05/19/19 00:55 Laboratory Results - last 24 hr 05/19/19 05/19/19 05/19/19 00:55 00:55 00:55 WBC 12.70 H RBC 5.73 H Hgb 16.7 H Hct 49.6 H MCV 86.6 MCH 29.1 MCHC 33.7 RDW 14.4 Plt Count 173 MPV 10.8 Immature Gran % 0.4 Neutrophils % 73.8 Lymphocytes % 19.5 Monocytes % 4.4 Eosinophils % 1.5 Basophils % 0.4 Absolute Neutrophils 9.37 H Absolute Lymphocytes 2.48 Absolute Monocytes 0.56 Absolute Eosinophils 0.19 Absolute Basophils 0.05 Sodium 141 Potassium 3.9 Chloride 106 Carbon Dioxide 26.6 Anion Gap 8.4 BUN 17 Creatinine 0.84 Estimated GFR/1.73 m2 >= 60.00 Glucose 133 H Calcium 8.4 L Magnesium 1.9 Total Bilirubin 0.5 AST 19 ALT 29 Alkaline Phosphatase 98 Troponin I < 0.05 Total Protein 6.4 Albumin 3.2 L Digoxin 0.80 L Last Vital Signs Temp 36.6 C 05/19/19 00:37 Pulse 89 05/19/19 04:55 Resp 22 05/19/19 03:20 BP 178/85 H 05/19/19 02:49 Pulse Ox 92 L 05/19/19 02:30
[2019-05-19 06:53] LABS: Bilirubin Negative (Negative); Blood Trace-intact (Negative); Clarity Clear (Clear); Glucose Negative (Negative); Ketones Negative (Negative); Leukocyte Esterase Negative (Negative); Nitrite Negative (Negative); Urobilinogen 0.2 EU/dL (Up TO 0.2); pH 8.5 (5-8)
[2019-05-19 07:10] LABS: Bacteria Few HPF (Negative); C & S Indicated? No; Casts Negative LPF (Negative); Crystals Negative HPF (Negative); Epithelial Cells Moderate HPF (Negative); Mucus Trace (Negative); Other Cells Rare Renal (Negative); WBC 0-2 HPF (0-5)
[2019-05-19] MEDS: Digoxin 0.125 MG TAB PO (08:43)
[2019-05-19] MEDS: Metoprolol CR 50 MG TABCR PO ×2 (08:43→19:37)
[2019-05-19] MEDS: Sertraline 50 MG TAB 150 MG PO (08:44)
[2019-05-19 09:08] LABS: INR 1.1 (0.9-1.1); Prothrombin Time 10.8 sec (9.3-11.0)
--- NOTE | 2019-05-19 09:09 | W.ORTHOCONSU ---
Date of service: 05/19/19 Time of Service: 07:09 History of Present Illness Chief Complaint: Left hip fracture Narrative: Inna is a 74-year-old demented female who had a fall. She reported pain was unable to ambulate. She was seen in the emergency department and diagnosed with an intertrochanteric hip fracture, nondisplaced. She has significant dementia and otherwise history is difficult to obtain. She does ambulate independently at home. She lives in the care of her family. She was admitted to the hospital service for preoperative evaluation and management. She is on Eliquis for atrial fibrillation and this has been held. Consults Consult date: 05/20/19 Requesting physician: Nando Ruiz Consult Reason Left hip fracture Assessment and Plan (1) Intertrochanteric fracture of left femur: Current visit: Yes Status: Acute Inna is a 74-year-old with a nondisplaced intertrochanteric hip fracture of the left she does have significant dementia and a cardiac history. Initial cardiac work-up by the hospital service has been negative and will be completed prior to proceeding the operating room. Given her use of Eliquis, this has been discontinued and we will try to allow for 48 hours prior to surgery to minimize the risk of bleeding complications. The plan will be for surgery tomorrow, May 20. She will be n.p.o. after midnight. We will utilize cefazolin for preoperative antibiotics and tranexamic acid for bleeding management. I reviewed the details of the surgery with lens . I discussed the risk to include bleeding, infection, pain, stiffness, worsening mental status, cardiopulmonary demise, weakness, damage to muscle tendons, damage to nerves and vessels, malunion, nonunion, blood clot. I discussed the case in detail with Inna's who agrees to proceed with the surgery. Qualifiers: Encounter type: initial encounter Fracture type: closed Fracture alignment: nondisplaced Qualified Code(s): S72.145A - Nondisplaced intertrochanteric fracture of left femur, initial encounter for closed fracture Review of Systems Review of Systems Unobtainable due to mental status [facility] Medical History MVP (mitral valve prolapse) (Acute) Atrial fibrillation (Chronic) CHF (congestive heart failure) (Chronic) CVA (cerebral vascular accident) (Chronic) Depression (Chronic) Surgical History H/O mitral valve repair (Acute) History of bladder surgery (Acute) History of hysterectomy (Chronic) History of knee replacement (Chronic) Hx of cholecystectomy (Chronic) Social History Smoking/Tobacco Use Status: Never Alcohol Intake: never Drug use: Never Do you feel safe in your relationship?: Yes Exam Narrative Exam Narrative: Inna is lying in the supine position. The left leg may be slightly externally rotated compared to the right but no significant deformity. She is alert but not oriented to person and place. She seems slightly agitated. Evaluation of the left leg does not show any skin breakdown. No ecchymosis. No pain to palpation around the knee or the foot or ankle. Results Last Vital Signs Temp 37.3 C 05/20/19 04:03 Pulse 81 05/20/19 04:03 Resp 16 05/20/19 04:03 BP 130/88 05/20/19 04:03 Pulse Ox 96 05/20/19 04:03 Labs : 05/20/19 06:25 05/19/19 00:55 Laboratory Results - last 24 hr 05/19/19 05/19/19 05/19/19 06:36 06:40 07:00 WBC RBC Hgb Hct MCV MCH MCHC RDW Plt Count MPV PT 10.8 INR 1.1 Troponin I TSH Urine RBC 3-5 H Urine WBC 0-2 Ur Epithelial Cells Moderate Urine Crystals Negative Urine Bacteria Few Urine Casts Negative Urine Mucus Trace Urine Other Rare renal Ur Culture Indicated? No Patient ABO/Rh A Positive Antibody Screen Negative 05/19/19 05/19/19 05/20/19 08:10 11:00 06:25 WBC 13.05 H RBC 5.70 H Hgb 16.2 H Hct 48.8 H MCV 85.6 MCH 28.4 MCHC 33.2 RDW 14.3 Plt Count 149 MPV 11.3 H PT INR Troponin I < 0.05 < 0.05 TSH 3.27 Urine RBC Urine WBC Ur Epithelial Cells Urine Crystals Urine Bacteria Urine Casts Urine Mucus Urine Other Ur Culture Indicated? Patient ABO/Rh Antibody Screen Imaging Imaging Studies: X-ray of the left hip demonstrates a nondisplaced intertrochanteric hip fracture. There is no comminution. There is no significant shortening or deformity.
--- NOTE | 2019-05-19 11:01 | DI.US_ITS ---
SYMPTOM/DIAGNOSIS: SYNCOPAL EPISODE CAROTID ULTRASOUND: The exam was limited due to lack of patient cooperation. Plaque is seen in the common carotid bulbs bilaterally. The velocity measurements in the internal carotid arteries are in the normal range. No significant stenosis is visible. The vertebral arteries show antegrade flow. IMPRESSION: No significant internal carotid artery stenosis.
[2019-05-19 11:53] LABS: Troponin I < 0.05 ng/mL (0.00-0.06)
--- NOTE | 2019-05-19 11:57 | PDOC.CMIN ---
- If Service Date Differs Date of service: 05/19/19 Time of Service: 11:57 Care Management Initial Assess REASON FOR HOSPITALIZATION:: intertrochanteric fracture of left femur PAST MEDICAL HISTORY/PAST SURGICAL HISTORY:: Medical History: MVP (mitral valve prolapse) (Acute). Atrial fibrillation (Chronic). CHF (congestive heart failure) (Chronic). CVA (cerebral vascular accident) (Chronic). Depression (Chronic). Surgical History: H/O mitral valve repair (Acute). History of bladder surgery (Acute). History of hysterectomy (Chronic). History of knee replacement (Chronic). Hx of cholecystectomy (Chronic) PREVIOUS FUNCTIONAL STATUS/SOCIAL/FAMILY SUPPORTS:: Inna was not able to answer questions when CM came to see her. Family not available to converse with. CURRENT FUNCTIONAL STATUS:: see above ADVANCE DIRECTIVES:: On file. Sp [facility] Has patient been provided with information about the portal?: No Did the patient sign up for the portal?: No CODE STATUS:: DNR/DNI INSURANCE COVERAGE / FINANCIAL ISSUES:: MEDICARE. [employer] PRIMARY CARE PHYSICIAN:: Elizabeth Corral POTENTIAL DISCHARGE NEEDS:: follow up with PCP and discharge plan of care PATIENT/FAMILY EDUCATION NEEDS:: discharge plan, limitations, follow up plan and Ask Me Three PLAN:: Inna is scheduled for surgery tomorrow if she receives medical clearance.She will likely need SNF placement for rehab when ready. CM will continue to provide support to patient,family. and discharge planning process.
--- NOTE | 2019-05-19 12:30 | MERGE_ITS ---
*[facility]* *[facility]* [address] [place] [address] Date of study: 05/19/2019 Transthoracic Echocardiography M-mode, complete 2D, complete spectral Doppler, and color Doppler *STUDY CONCLUSIONS* Summary: 1. Left ventricle: The cavity size was normal. Systolic function was hyperdynamic. The estimated ejection fraction was 65-70%. Findings consistent with diastolic dysfunction. Doppler parameters are consistent with high ventricular filling pressure. 2. Mitral valve: Severely calcified annulus. There was mild regurgitation. 3. Left atrium: The atrium was severely dilated. 4. Right ventricle: The cavity size was normal. Wall thickness was moderately increased. Systolic function was mildly reduced. 5. Right atrium: The atrium was moderately dilated. 6. Atrial septum: No defect or patent foramen ovale was identified. 7. Pulmonary arteries: Pulmonary systolic pressure was in the range of 25mm Hg to 35mm Hg. 8. Inferior vena cava: The vessel was patent and normal in size. The respirophasic diameter changes were in the normal range (greater than or equal to 50%), consistent with normal central venous pressure. *PATIENT PRESENTATION* Height: 165.1cm (65in ) S/D Pressure: 157 / 96 Weight: 67.1kg (147.7lb ) BSA: 1.76m^2 Test start time: 12:40 PM. Test stop time: 01:40 PM. PERFORMING Unknown CONSULTING Elizabeth Corral PERFORMING [facility] TEACHER ASSOCIATE RT Deven (R)(CT), [facility] ORDERING Sally Shea REFERRING Foulke, Sally *PROCEDURE DATA* Procedure information: The patient was identified by two identifiers. This study was interpreted by [facility]. Pertinent images and digital data are archived for permanent storage and are available for subsequent review. Comparison was made to the study of 08/28/2016. Study status: Routine. Transthoracic echocardiography. M-mode, complete 2D, complete spectral Doppler, and color Doppler. A Transthoracic Echocardiogram was performed. Scanning was performed from the parasternal, apical, subcostal, and suprasternal notch acoustic windows. Images were obtained using an [id number] cardiac ultrasound machine. Image quality was adequate. Study completion: The patient tolerated the procedure well. History: PMH: Syncopal episode. *CARDIAC ANATOMY* Left ventricle: The cavity size was normal. Systolic function was hyperdynamic. The estimated ejection fraction was 65-70%. The tissue Doppler parameters were abnormal. Findings consistent with diastolic dysfunction. Doppler parameters are consistent with high ventricular filling pressure. Aortic valve: Trileaflet. Doppler: There was no stenosis. There was no regurgitation. VTI ratio of LVOT to aortic valve: 0.65. Valve area (VTI): 1.9cm^2. Indexed valve area (VTI): 1.1cm^2/m^2. Peak velocity ratio of LVOT to aortic valve: 0.62. Valve area (Vmax): 1.8cm^2. Indexed valve area (Vmax): 1cm^2/m^2. Mean velocity ratio of LVOT to aortic valve: 0.62. Valve area (Vmean): 1.8cm^2. Indexed valve area (Vmean): 1cm^2/m^2. Mean gradient (S): 3.4mm Hg. Peak gradient (S): 5.4mm Hg. Aorta: Aortic root: The aortic root was normal in size. Mitral valve: Severely calcified annulus. Doppler: There was no evidence for stenosis. There was mild regurgitation. Valve area by pressure half-time: 2.4cm^2. Indexed valve area by pressure half-time: 1.4cm^2/m^2. Peak gradient (D): 7.7mm Hg. Left atrium: The atrium was severely dilated. Atrial septum: No defect or patent foramen ovale was identified. Right ventricle: The cavity size was normal. Wall thickness was moderately increased. Systolic function was mildly reduced. Pulmonic valve: Doppler: There was no evidence for stenosis. There was no significant regurgitation. Peak gradient (S): 2mm Hg. Tricuspid valve: Doppler: There was mild regurgitation. Pulmonary artery: Poorly visualized. Pulmonary systolic pressure was in the range of 25mm Hg to 35mm Hg. Right atrium: The atrium was moderately dilated. Pericardium: There was no pericardial effusion. Systemic veins: Inferior vena cava: Well visualized. The vessel was patent and normal in size. The respirophasic diameter changes were in the normal range (greater than or equal to 50%), consistent with normal central venous pressure. Baseline ECG: Atrial fibrillation. Measurements Left ventricle Value Reference LV ID, ED, PLAX 4.4 cm 3.5 - 6.0 LV ID, ES, PLAX 3.5 cm 2.1 - 4.0 LV PW thickness, ED, PLAX 1.1 cm LV end-diastolic volume, 1-p A2C 53 ml LV ejection fraction, 1-p A2C 52 % LV end-diastolic volume, 1-p A4C 37 ml LV ejection fraction, 1-p A4C 57 % LV e', lateral 0.048 m/sec LV E/e', lateral 29 LV e', medial 0.046 m/sec LV E/e', medial 30 LV e', average 0.047 m/sec LV E/e', average 30 Ventricular septum Value Reference IVS thickness, ED, PLAX 1.3 cm LVOT Value Reference LVOT ID, A-P 1.9 cm LVOT area 2.9 cm^2 LVOT peak velocity, S 0.72 m/sec LVOT mean velocity, S 0.56 m/sec LVOT VTI, S 12.4 cm LVOT peak gradient, S 2.1 mm Hg LVOT mean gradient, S 1.4 mm Hg Stroke volume (SV), LVOT DP 36 ml Stroke index (SV/bsa), LVOT DP 20 ml/m^2 Aortic valve Value Reference Aortic valve peak velocity, S 1.2 m/sec Aortic valve mean velocity, S 0.9 m/sec Aortic valve VTI, S 19.0 cm Aortic mean gradient, S 3.4 mm Hg Aortic peak gradient, S 5.4 mm Hg VTI ratio, LVOT/AV 0.65 Aortic valve area, VTI 1.9 cm^2 Velocity ratio, peak, LVOT/AV 0.62 Aortic valve area, peak velocity 1.8 cm^2 Velocity ratio, mean, LVOT/AV 0.62 Aortic valve area, mean velocity 1.8 cm^2 Aortic valve area/bsa, mean velocity 1 cm^2/m^2 Aorta Value Reference Aortic root ID, ED 3.1 cm Left atrium Value Reference LA ID, A-P, ES 5.2 cm LA ID/bsa, A-P (H) 2.9 cm/m^2 <=2.2 LA volume/bsa, ES, 1-p A4C 92 ml/m^2 LA volume, ES, 2-p 137 ml LA volume/bsa, ES, 2-p 77 ml/m^2 LA/aortic root ratio 1.69 Mitral valve Value Reference Mitral E-wave peak velocity 1.39 m/sec Mitral deceleration time (H) 312 ms 150 - 230 Mitral pressure half-time 91 ms Mitral peak gradient, D 7.7 mm Hg Mitral valve area, PHT, DP 2.4 cm^2 Tricuspid valve Value Reference Tricuspid regurg peak velocity 2.7 m/sec Tricuspid peak RV-RA gradient 29.2 mm Hg Right atrium Value Reference RA area, ES, A4C (H) 22.3 cm^2 8.3 - 19.5 Pulmonic valve Value Reference Pulmonic peak gradient, S 2 mm Hg Legend: (L) and (H) jewels values outside specified reference range. I have personally reviewed the images and have reviewed and edited the reported findings. Electronically signed by Tiburcio Mclean MD 05/19/2019 16:04
[2019-05-19] MEDS: LORazepam 2 MG/ML VIAL 0.25 MG IVP (12:39)
--- NOTE | 2019-05-19 12:39 | PHARADMIT ---
Addendum entered by Amber Gilliam 05/22/19 12:34: Pharmacy Note Subjective mental status appears to be at baseline per nursing report Objective VS-okay no labs Assessment no med changes Plan possible discharge tomorrow pending ortho (no note yet today) and placement? Addendum entered by Hermelinda Coleman 05/20/19 17:00: Pharmacy Note Subjective Went to OR today for femur fracture repair, very confused Objective VS good, labs good, BG 125 Assessment Cefazolin post-op x3 doses Apixiban restarting tonight Lipitor started, APAP and fentanyl for pain Plan Original Note: Admission Pharmacy Clinical Review closed left inter-trochanteric fracture, dementia,ca Code Status DNR/DNI Current Weight Wgt-67.3 kg Renally Cleared and Narrow Therapeutic Index Meds CrCl~ 52.1 mL.min Meds-OK QTc Value / Action Taken qtC-508 (SERTRALINE) BP Control, Fever BP- 157/96 Tmax-37.7C Electrolytes reviewed Na- 141 K+3.9 Mag-1.9 DVT Prophylaxis No awaiting surgery Opiate Usage / Scheduled Bowel Regimen Ordered Yes Yes Plt/SCr for Heparin / Enoxaparin Plts-173 SCr-0.84 INR for Warfarin inr-1.1 H/H stable, WBC/Bands H&H- 16.7/49.6 WBC-12.70 Antibiotic appropriateness none Cultures and Sensitivities none Surgical ABX d/c within 24 hr na DM control / Insulin Dosing BG-133 Heart Failure (Check EF%) (EVELYN's, B-Block, Diuretics) Toprol-XL, IV to PO Switch No Home Meds Reviewed Yes Home Meds Not Ordered Apixaban, Lipitor, Mirabegron, Keflex, Craberry tabs, Pumpkin seed extract Comments Digoxin -0.80 (0.9-2.00)
[2019-05-19 15:18] LABS: TSH (W/Ref FT4) 3.27 uIU/mL (0.358-3.74)
[2019-05-19 15:21] LABS: Troponin I < 0.05 ng/mL (0.00-0.06)
[2019-05-19] MEDS: Atorvastatin 40 MG TAB PO (19:37)
[2019-05-20] VITALS (18 sets, daily range): BP systolic 94–150; BP diastolic 51–95; PULSE 75–102; RESP 16–25; TEMP 36.3–37.5; O2SAT 89–97
[2019-05-20] MEDS: Normal Saline Flush 10 ML SYR IVP ×5 (00:31→18:25)
[2019-05-20] MEDS: fentaNYL 100 MCG/2 ML VIAL 50 MCG IVP ×4 (00:31→18:25)
--- NOTE | 2019-05-20 01:13 | NUR.NOTE ---
Aracelis Garcia : [birth year] [facility] Rec# : [id number] 05/20/19 12:30 am Upon entering patients room, pt is seen tugging extremely hard at the mckinney and crying out in pain. upon assessment catheter was almost out with just the tip inside of the pt. Mckinney was removed and a new catheter was re passed and secured. light singer urine noted in drainage bag.
[2019-05-20 07:02] LABS: HCT 48.8 % (36.0-46.0); HGB 16.2 g/dL (12.0-15.5); Mean Corp. HGB Concentration 33.2 g/dL (32.0-36.0); Mean Corpuscular Hemoglobin 28.4 pg (27.0-33.0); Mean Corpuscular Volume 85.6 fL (80-95); Mean Platelet Volume 11.3 fL (8.0-11.0); Platelet Count 149 x1000/uL (130-400); RBC Distribution Width 14.3 % (11.7-14.6); White Blood Cell Count 13.05 k/cumm (4.4-10.8)
[2019-05-20 07:25] LABS: ALT 30 U/L (12-78); AST 19 U/L (15-37); Alkaline Phosphatase 97 U/L (46-116); BUN 18 mg/dL (7-18); Bilirubin, Total 0.8 mg/dL (0.2-1.0); CREATININE 0.75 mg/dL (0.55-1.02); Calcium 8.5 mg/dL (8.5-10.1); Chloride 105 mmol/L (98-107); Glucose 125 mg/dL (70-100); Potassium 4.1 mmol/L (3.5-5.1); Sodium 140 mmol/L (136-145); Total Protein 6.6 g/dL (6.4-8.2)
[2019-05-20] MEDS: Digoxin 0.125 MG TAB PO (08:58)
[2019-05-20] MEDS: Metoprolol CR 50 MG TABCR PO ×2 (08:59→20:03)
[2019-05-20] MEDS: Sertraline 50 MG TAB 150 MG PO (08:59)
--- NOTE | 2019-05-20 10:00 | PDOC.CMPRO ---
- If Service Date Differs Date of service: 05/20/19 Time of Service: 10:00 Care Management Progress Note S/O:Inna was in surgery when CM came to see her but her Sp was in the room. He shared that they live in a log home that he built and that it has one and a half stories.He stated that Inna was diagnosed with dementia about 8 years ago but that it has become much worse in the past year. He cares for her alone at home but has a lot of strong support from his step son and his as well as close friends. Sp does all of the cooking because of concerns that Inna will get hurt around the hot stove. When Inna was still employed she worked for the [employer] and has an excellent pension, according to Sp. They have been since 1973. CORY did raise the question of short term rehab should it be necessary and Sp was agreeable to that. Inna has been to [place] in the past and it is close to his home, so that would be his first choice. A: Inna is a 74 year old female admitted to [facility] on 05/19/19 with an intertrochanteric fracture of her left femur P:Inna is scheduled for surgery this afternoon.She will likely need SNF placement for rehab when ready. CM will continue to provide support to patient,family. and discharge planning process.
--- NOTE | 2019-05-20 10:03 | CMPROGNOTE_ITS ---
- If Service Date Differs Date of service: 05/20/19 Time of Service: 10:00 Care Management Progress Note S/O:Inna was in surgery when CM came to see her but her Sp was in the room. He shared that they live in a log home that he built and that it has one and a half stories.He stated that Inna was diagnosed with dementia about 8 years ago but that it has become much worse in the past year. He cares for her alone at home but has a lot of strong support from his step son and his as well as close friends. Sp does all of the cooking because of concerns that Inna will get hurt around the hot stove. When Inna was still employed she worked for the [employer] and has an excellent pension, according to Sp. They have been since 1973. CORY did raise the question of short term rehab should it be necessary and Sp was agreeable to that. Inna has been to [place] in the past and it is close to his home, so that would be his first choice. A: Inna is a 74 year old female admitted to [facility] on 05/19/19 with an intertrochanteric fracture of her left femur P:Inna is scheduled for surgery this afternoon.She will likely need SNF placement for rehab when ready. CM will continue to provide support to patient,family. and discharge planning process.
--- NOTE | 2019-05-20 11:36 | DI.RAD_ITS ---
SYMPTOM/DIAGNOSIS: HIP FX LEFT HIP IN OR: Fluoroscopy Time: 43.7 seconds Fluoroscopy was provided in the OR. Hard copy images show placement of a compression screw in the proximal femur for fracture fixation. The fracture remains nondisplaced. Please see procedure note for details.
[2019-05-20] MEDS: Lactated Ringers 1,000 ML 30 ML IV (11:50)
--- NOTE | 2019-05-20 11:59 | W.PM.PROGNOT ---
Date of Service Date of service: 05/20/19 Time of Service: 11:59 Assessment and Plan (1) Intertrochanteric fracture of left femur: Current visit: Yes Status: Acute Inna Hsu is a very pleasant 74 year old female with a past medical history significant for Atrial fibrillation, anticoagulated on apixiban, cardiomyopathy, CVA with aphasia and severe dementia who fell at home and sustained a left intertrochanteric hip fracture. She was admitted to the hospitalist service for preoperative evaluation with an ortho consult. Given the unwitnessed fall at home, she had a cardaic work up prior to the surgery including an EKG which showed right bundle branch block with no acute ST-T changes or ischemic changes observed. She was monitored on telemetry and was noted to be in a-fib with rates in the 80s and 90s. She had an echocardiogram which showed LVEF of 65-70%, with diastolic dysfunction and mild pulmonary hypertension. She had a carotid artery ultrasound which did not show significant stenosis. Using the Yeung perioperative cardiac risk calculator, she was found to have <1% risk for cardiac event for an intermediate risk procedure. She will go to the OR with Dr. Mcclendon for repair of the left hip fracture today. Continue pain control. PT for mobilization after surgery. Qualifiers: Encounter type: initial encounter Fracture type: closed Fracture alignment: nondisplaced Qualified Code(s): S72.145A - Nondisplaced intertrochanteric fracture of left femur, initial encounter for closed fracture (2) Atrial fibrillation: Current visit: No Status: Chronic Rate controlled. Has been on telemetry overnight, remains in atrial fibrillation, rates in the 80s to 90s. Eliquis on hold for surgery. Resume anticoagulation per orthopedic recommendations. Continue beta-domitila and digoxin. Qualifiers: Atrial fibrillation type: chronic Qualified Code(s): I48.2 - Chronic atrial fibrillation (3) Dementia: Current visit: Yes Status: Chronic Stable. Continue sertraline. Qualifiers: Dementia type: unspecified type Dementia behavioral disturbance: with behavioral disturbance Qualified Code(s): F03.91 - Unspecified dementia with behavioral disturbance (4) DVT prophylaxis: Current visit: Yes Status: Acute On apixaban for atrial fibrillation. Apixaban on hold for surgery. Resume per orthopedic recommendation. (5) Discharge planning issues: Current visit: Yes Status: Acute She is a DNR/DNI. PT consult for mobilization after surgery. This case was discussed with Dr. Whitaker who is in agreement. Subjective Interval history since last seen: Inna Hsu is a very pleasant 74 year old female with a past medical history significant for Atrial fibrillation, anticoagulated on apixiban, cardiomyopathy, CVA with aphasia and severe dementia who fell at home and sustained a left intertrochanteric hip fracture. She was admitted to the hospitalist service for preoperative evaluation with an ortho consult. Given the unwitnessed fall at home, she had a cardaic work up prior to the surgery including an EKG which showed right bundle branch block with no acute ST-T changes or ischemic changes observed. She was monitored on telemetry and was noted to be in a-fib with rates in the 80s and 90s. She had an echocardiogram which showed LVEF of 65-70%, with diastolic dysfunction and mild pulmonary hypertension. She had a carotid artery ultrasound which did not show significant stenosis. Using the Yeung perioperative cardiac risk calculator, she was found to have <1% risk for cardiac event for an intermediate risk procedure. She will go to the OR with Dr. Mcclendon for repair of the left hip fracture today. She is unable to verbalize if she currently has pain. She speaks nonsensically. She is unable to engage in a full review of symptoms at this time. Exam Narrative Exam Narrative: General: she is laying in bed, awake and alert, not oriented. She does not appear to be in any distress. Speaking nonsensically. HEENT: normocephalic, atraumatic, pupils equal and round, mucous membranes moist. Neck: supple, no JVD. Cardiovascular: Irregularly irregular, nontachycardic, no murmur. Respiratory: respirations even and unlabored, lungs clear bilaterally. GI: normoactive bowel sounds, abdomen soft, nontender on palpation. Extremities: mild edema to bilateral lower extremities, pedal pulses palpable bilaterally. ROM not tested in LLE, does not appear to have significant pain on palpation of left leg. Objective Objective Clinical Data: Abnormal lab results 05/20/19 05/20/19 Range/Units 06:25 06:25 WBC 13.05 H (4.4-10.8) k/cumm RBC 5.70 H (4.00-5.20) m/cumm Hgb 16.2 H (12.0-15.5) g/dL Hct 48.8 H (36.0-46.0) % MPV 11.3 H (8.0-11.0) fL Glucose 125 H (70-100) mg/dL Albumin 3.0 L (3.4-5.0) g/dL Vital Signs Temperature 36.7 C 05/20/19 07:20 Temperature Source Tympanic 05/20/19 07:20 Pulse 80 05/20/19 08:58 Pulse Rhythm Irregular 05/20/19 10:06 Pulse 89 05/19/19 03:20 Respiratory Rate 18 05/20/19 07:20 Respiratory Effort Non-Labored 05/20/19 10:06 Respiratory Depth Normal 05/20/19 10:06 Respiratory Pattern Normal 05/20/19 10:06 Blood Pressure 150/95 H 05/20/19 07:20 Blood Pressure Mean 110 05/19/19 02:49 Pulse Oximetry 93 L 05/20/19 07:20 Oxygen Delivery Method Room Air 05/20/19 07:20 Oxygen Flow Rate 0 05/20/19 07:20 Pain Level 0 05/19/19 23:34 Intake & Output 05/19/19 05/19/19 05/20/19 11:59 23:59 11:59 Intake Total 480 / 960 480 / 960 30 / 30 Output Total 400 / 1000 600 / 1000 600 / 600 Balance 80 / -40 -120 / -40 -570 / -570 Weight 67.3 kg Intake: Oral 480 / 960 480 / 960 30 / 30 Output: Urine 400 / 1000 600 / 1000 600 / 600 Other: Urine Color Light Lauren Dark Lauren Straw Urine Appearance Clear Clear Clear Urine Odor None Comment diaper soaked in urine Voiding Methods Diaper Laboratory Results WBC 13.05 k/cumm (4.4-10.8) H 05/20/19 06:25 RBC 5.70 m/cumm (4.00-5.20) H 05/20/19 06:25 Hgb 16.2 g/dL (12.0-15.5) H 05/20/19 06:25 Hct 48.8 % (36.0-46.0) H 05/20/19 06:25 MCV 85.6 fL (80-95) 05/20/19 06:25 MCH 28.4 pg (27.0-33.0) 05/20/19 06:25 MCHC 33.2 g/dL (32.0-36.0) 05/20/19 06:25 RDW 14.3 % (11.7-14.6) 05/20/19 06:25 Plt Count 149 x1000/uL (130-400) 05/20/19 06:25 MPV 11.3 fL (8.0-11.0) H 05/20/19 06:25 Immature Gran % 0.4 05/19/19 00:55 Neutrophils % 73.8 05/19/19 00:55 Lymphocytes % 19.5 05/19/19 00:55 Monocytes % 4.4 05/19/19 00:55 Eosinophils % 1.5 05/19/19 00:55 Basophils % 0.4 05/19/19 00:55 Absolute Neutrophils 9.37 k/cumm (1.2-6.7) H 05/19/19 00:55 Absolute Lymphocytes 2.48 k/cumm (1.2-3.4) 05/19/19 00:55 Absolute Monocytes 0.56 k/cumm (0.11-0.7) 05/19/19 00:55 Absolute Eosinophils 0.19 k/cumm (0.0-0.7) 05/19/19 00:55 Absolute Basophils 0.05 k/cumm (0.0-0.2) 05/19/19 00:55 PT 10.8 sec (9.3-11.0) 05/19/19 06:36 INR 1.1 (0.9-1.1) 05/19/19 06:36 Sodium 140 mmol/L (136-145) 05/20/19 06:25 Potassium 4.1 mmol/L (3.5-5.1) 05/20/19 06:25 Chloride 105 mmol/L (98-107) 05/20/19 06:25 Carbon Dioxide 24.0 mmol/L (21.0-32.0) 05/20/19 06:25 Anion Gap 11.0 mmol/L (3-11) 05/20/19 06:25 BUN 18 mg/dL (7-18) 05/20/19 06:25 Creatinine 0.75 mg/dL (0.55-1.02) 05/20/19 06:25 Estimated GFR/1.73 m2 >= 60.00 (mL/min/1.73m2) 05/20/19 06:25 Glucose 125 mg/dL (70-100) H 05/20/19 06:25 Calcium 8.5 mg/dL (8.5-10.1) 05/20/19 06:25 Magnesium 1.9 mg/dL (1.8-2.4) 05/19/19 00:55 Total Bilirubin 0.8 mg/dL (0.2-1.0) 05/20/19 06:25 AST 19 U/L (15-37) 05/20/19 06:25 ALT 30 U/L (12-78) 05/20/19 06:25 Alkaline Phosphatase 97 U/L (46-116) 05/20/19 06:25 Troponin I < 0.05 ng/mL (0.00-0.06) 05/19/19 11:00 Total Protein 6.6 g/dL (6.4-8.2) 05/20/19 06:25 Albumin 3.0 g/dL (3.4-5.0) L 05/20/19 06:25 TSH 3.27 uIU/mL (0.358-3.74) 05/19/19 08:10 Urine Color Yellow (Yellow) 05/19/19 06:40 Urine Clarity Clear (Clear) 05/19/19 06:40 Urine pH 8.5 (5-8) H 05/19/19 06:40 Ur Specific [place] 1.020 (1.005-1.025) 05/19/19 06:40 Urine Protein Trace mg/dL (Negative) H 05/19/19 06:40 Urine Ketones Negative mg/dL (Negative) 05/19/19 06:40 Urine Blood Trace-intact (Negative) H 05/19/19 06:40 Urine Nitrite Negative (Negative) 05/19/19 06:40 Urine Bilirubin Negative (Negative) 05/19/19 06:40 Urine Urobilinogen 0.2 EU/dL (Up TO 0.2) 05/19/19 06:40 Ur Leukocyte Esterase Negative (Negative) 05/19/19 06:40 Urine RBC 3-5 (0-2) H 05/19/19 06:40 Urine WBC 0-2 HPF (0-5) 05/19/19 06:40 Ur Epithelial Cells Moderate HPF (Negative) 05/19/19 06:40 Urine Crystals Negative HPF (Negative) 05/19/19 06:40 Urine Bacteria Few HPF (Negative) 05/19/19 06:40 Urine Casts Negative LPF (Negative) 05/19/19 06:40 Urine Mucus Trace (Negative) 05/19/19 06:40 Urine Other Rare renal (Negative) 05/19/19 06:40 Ur Culture Indicated? No 05/19/19 06:40 Urine Glucose Negative mg/dL (Negative) 05/19/19 06:40 Digoxin 0.80 ng/mL (0.90-2.00) L 05/19/19 00:55 Patient ABO/Rh A Positive 05/19/19 07:00 Antibody Screen Negative 05/19/19 07:00
[2019-05-20] MEDS: ceFAZolin 2 GM/50 ML BAG IVPB (12:15)
--- NOTE | 2019-05-20 14:11 | CHAPLAIN ---
Inna was in the OR for surgery, and I spoke with her . Mr. Hsu said he has put a game camera up in their home, specifically to be able to see if Inna when she gets up at night. The camera takes a picture every 10 secords, so he figures he can look back at the video to see how Inna fell. I introduced myself, explained my role and offered support. I'll check back in with Inna another time.
[2019-05-20] MEDS: Atorvastatin 40 MG TAB PO (20:03)
[2019-05-20] MEDS: Apixaban 5 MG TAB PO (21:30)
[2019-05-21] VITALS (11 sets, daily range): BP systolic 108–154; BP diastolic 61–101; PULSE 72–96; RESP 16–20; TEMP 36.2–37.7; O2SAT 92–97
[2019-05-21] MEDS: Normal Saline Flush 10 ML SYR IVP ×3 (01:13→09:09)
--- NOTE | 2019-05-21 02:06 | NUR.NOTE ---
Nursing Note: Pt received on bed fully awake, unable to comprehend conversations. Silver mepilex on left hip is C/D/I. Out of bed to bedside commode but prior to that, pt medicated with fentanyl 50mcg as PRN and with some relief. Had liquidy incotinent of stools. O2 switched to NC at 2 L/ min. supper 100% well tolerated including snacks. Self fed without difficulty. Refused to have the SCD, not comfortable with it. Booker drained 250 cc, dark slim. bed alarm in progress and cadre provided until this time.
[2019-05-21] MEDS: fentaNYL 100 MCG/2 ML VIAL 50 MCG IVP (04:23)
[2019-05-21 07:15] LABS: HCT 45.5 % (36.0-46.0); HGB 15.3 g/dL (12.0-15.5); Mean Corp. HGB Concentration 33.6 g/dL (32.0-36.0); Mean Corpuscular Hemoglobin 29.1 pg (27.0-33.0); Mean Corpuscular Volume 86.5 fL (80-95); Mean Platelet Volume 11.3 fL (8.0-11.0); Platelet Count 150 x1000/uL (130-400); RBC 5.26 m/cumm (4.00-5.20); RBC Distribution Width 14.1 % (11.7-14.6); White Blood Cell Count 15.73 k/cumm (4.4-10.8)
[2019-05-21 07:30] LABS: Anion Gap 11.1 mmol/L (3-11); BUN 23 mg/dL (7-18); CO2 23.9 mmol/L (21.0-32.0); CREATININE 0.99 mg/dL (0.55-1.02); Calcium 8.8 mg/dL (8.5-10.1); Chloride 105 mmol/L (98-107); Estimated GFR 54.54 (mL/min/1.73m2); Glucose 121 mg/dL (70-100); Potassium 3.8 mmol/L (3.5-5.1); Sodium 140 mmol/L (136-145)
[2019-05-21] MEDS: Metoprolol CR 50 MG TABCR PO ×2 (08:06→19:43)
[2019-05-21] MEDS: Polyethylene Glycol 3350 17 GM PACKET PO (08:06)
[2019-05-21] MEDS: Acetaminophen 500 MG TAB PO (08:07)
[2019-05-21] MEDS: Docusate Sodium 100 MG CAP PO (08:07)
[2019-05-21] MEDS: Digoxin 0.125 MG TAB PO (08:07)
[2019-05-21] MEDS: Sertraline 50 MG TAB 150 MG PO (08:07)
--- NOTE | 2019-05-21 09:01 | W.PALLCONSUL ---
Date of service: 05/21/19 Time of Service: 09:01 History of Present Illness Narrative: I was asked to see Inna to discuss goals of care. She is a 74-year-old woman with advanced dementia and recent hip fracture. Consults Consult date: 05/21/19 Requesting physician: Ava Whitaker Assessment and Plan (1) Intertrochanteric fracture of left femur: Current visit: No Status: Acute Qualifiers: Encounter type: initial encounter Fracture type: closed Fracture alignment: nondisplaced Qualified Code(s): S72.145A - Nondisplaced intertrochanteric fracture of left femur, initial encounter for closed fracture (2) Dementia: Current visit: No Status: Chronic Unfortunately I was unable to make any headway with the Derek. It is obvious from our conversation that she cannot be left alone. She is also not a great rehab candidate just because of her inability to remember things from one moment to the next. Her CODE STATUS is DNR/DNI I would like to come back and talk with the family when this can be arranged. She will need long-term placement. This document was created by [employer] and may contain grammatical and translation errors. Qualifiers: Dementia type: unspecified type Dementia behavioral disturbance: with behavioral disturbance Qualified Code(s): F03.91 - Unspecified dementia with behavioral disturbance (3) Atrial fibrillation: Current visit: No Status: Chronic Qualifiers: Atrial fibrillation type: chronic Qualified Code(s): I48.2 - Chronic atrial fibrillation (4) Aphasia complicating stroke: Current visit: No Status: Acute Review of Systems Review of Systems The patient talks in [facility]. She has nonsensical sentences. I am unable to obtain a review of systems [facility] Medical History MVP (mitral valve prolapse) (Acute) Atrial fibrillation (Chronic) CHF (congestive heart failure) (Chronic) CVA (cerebral vascular accident) (Chronic) Depression (Chronic) Surgical History H/O mitral valve repair (Acute) History of bladder surgery (Acute) History of hysterectomy (Chronic) History of knee replacement (Chronic) Hx of cholecystectomy (Chronic) Social History Smoking/Tobacco Use Status: Never Alcohol Intake: never Drug use: Never Do you feel safe in your relationship?: Yes Exam Narrative Exam Narrative: She is a pleasant lady who is lying on her back off to her left side. She does not have her oxygen in place. Nor when the nurse tries to reapply it is she willing to have this on. She is talking in gibberish. Very very pleasant. Chest Chest: normal inspection of the chest Resp Effort & Inspection: normal respiratory effort and able to speak in complete sentences Auscultation: crackles (A few crackles bilaterally.) Cardio Heart Sounds: murmur Extrem Other: She has her legs propped up with pillows. She resists any motion to either leg. Results Last Vital Signs Temp 98.1 F 05/21/19 07:25 Pulse 86 05/21/19 08:20 Resp 17 05/21/19 07:25 BP 154/101 H 05/21/19 07:25 Pulse Ox 93 L 05/21/19 07:25 Labs : 05/23/19 06:30 05/21/19 06:45 Laboratory Results - last 24 hr 05/21/19 05/21/19 06:45 06:45 WBC 15.73 H RBC 5.26 H Hgb 15.3 Hct 45.5 MCV 86.5 MCH 29.1 MCHC 33.6 RDW 14.1 Plt Count 150 MPV 11.3 H Sodium 140 Potassium 3.8 Chloride 105 Carbon Dioxide 23.9 Anion Gap 11.1 H BUN 23 H Creatinine 0.99 Estimated GFR/1.73 m2 54.54 Glucose 121 H Calcium 8.8
[2019-05-21] MEDS: traMADol 50 MG TAB PO ×3 (10:35→23:50)
--- NOTE | 2019-05-21 11:05 | ROE_ITS ---
REPORT OF OPERATIVE PROCEDURE DATE OF SURGERY May 20, 2019 PREOPERATIVE DIAGNOSIS Left intertrochanteric hip fracture. POSTOPERATIVE DIAGNOSIS Left intertrochanteric hip fracture. SURGERY Open reduction internal fixation of left proximal femur fracture with a sliding hip screw device. SURGEON Sam Mcclendon M.D. GASTROENTEROLOGIST Tasia Ybarra PA-C. ESTIMATED BLOOD LOSS 200 cc. ANESTHESIA General. COMPLICATIONS None. DISPOSITION The patient was awakened from anesthesia and taken to the PACU in a stable condition. INDICATION FOR PROCEDURE Inna is a 74-year old demented female who lives at home with her family. She had an unwitnessed fal l and landed on her left side. She was unable to ambulate. She was brought to the [facility] and diagnosed with a left intertrochanteric hip fracture. I was consulted for her care and recommen ded surgical fixation. She was on Eliquis so this was delayed for almost 48 hours. I had a long discu ssion with her about the treatment of this fracture and he agreed to proceed with surgery. I reviewed the risks of the procedure to include bleeding, infection, pain, stiffness, damage to nerves and vessels, damage to muscles and tendons, gait alteration, weakness, blood clot. Despite these ris ks, he elected to proceed. PROCEDURE DESCRIPTION Inna was greeted in the Preoperative Holding Area. Her identity was confirmed and the correct side was identified and marked. The consent was reviewed with the patient's and signed previously. Inna was taken back to the Operating Room, placed in the supine position. A general anesthetic was administered. All bony prominences were padded. She was then placed onto the Fracture Table and slid down to the perineal post. Her nonoperative leg was scissored and secured against the operative boom with a pillow and taped. The operative site was placed into a well-padded foot godfrey and secured. So me slight traction and gentle internal rotation was applied to the operative site. Her right arm was left onto the arm board and the left arm was draped across her chest and well-padded and secured. Pre operative x-rays were then performed showing that the fracture was maintained in a nondisplaced locat ion. The left leg was then prepped with ChloraPrep and draped in a draped in a standard fashion. Prop hylactic antibiotics in the form of cefazolin were given. A timeout was performed for safe surgery. Using fluoroscopy as guidance, an incision was started at the level of the vastus ridge and extending distally down the lateral femur. The skin was incised sharply. The IT band was incised sharply, exp osing the vastus lateralis. The vastus lateralis was split within its fibers to expose the lateral fe mur. With the lateral femur exposed, retractors were placed anteriorly and posteriorly. A guidewire w as placed through the lateral femur and up into the femoral head. Once this was centered on the AP vi ew, the lateral view was obtained and the guidewire was confirmed to be in appropriate location, 25 m illimeters of combined distance from the center of the femoral head. Once happy with this location, the guidewire was measured at 85 millimeters. The tapered reamer was i nserted and taken down all the way to the lateral cortex. The 85-mm length screw was inserted and fol lowed on fluoroscopy. Once in its appropriate position, the three-hole short barrel plate was then in serted and impacted down onto the lateral femur. The plate was slightly off the bone distally, both p osteriorly and lateral. The plate was advanced onto the bone, which produced a slight valgus orientat ion of the fracture site. The plate was posterior, but it was on bone and therefore it was not manipu lated. Three nonlocking screws were placed within the plate itself. These were all bicortical and all had excellent purchase into the bone. They brought the plate down to bone and secured it without dif ficulty. X-rays did show that the plate was posterior, but all three screws were within the bone. Fin al x-rays were obtained. The wound was then thoroughly irrigated. The vastus lateralis fascia was reapproximated with a #0-Rolan ryl. The IT band was closed with a running #1- Vicryl. The deep tissues were closed with #0-Vicryl a nd #2-0 Vicryl. The skin was closed with rosa. A Mepilex Sliver Dressing was applied. At the end of the case, all counts were correct. She was transferred back to the PACU in stable condition.
[2019-05-21] MEDS: Ibuprofen 400 MG TAB PO ×2 (11:09→19:42)
--- NOTE | 2019-05-21 12:19 | PGE_ITS ---
Date of Service Date of service: 05/21/19 Time of Service: 12:16 Assessment and Plan (1) Intertrochanteric fracture of left femur: Current visit: Yes Status: Acute Postoperative day #1 Open reduction internal fixation of left proximal femur fracture with a sliding hip screw device by Dr. Mcclendon. She has LLE pain s/p surgery. Tylenol has been scheduled, continue PRN tramadol and ibuprofen. Add PPI for GI protection. Continue to mobilize with PT. will likely need placement at a half-way facility for rehab when she is ready for discharge from the hospital. Qualifiers: Encounter type: initial encounter Fracture type: closed Fracture alignment: nondisplaced Qualified Code(s): S72.145A - Nondisplaced intertrochanteric fracture of left femur, initial encounter for closed fracture (2) Atrial fibrillation: Current visit: No Status: Chronic Rate controlled. Has been monitored on telemetry, remains in atrial fibrillation, rates in the 80s to <120 with RBBB. Eliquis resumed after surgery. Continue beta-domitila and digoxin. Discontinue telemetry. Qualifiers: Atrial fibrillation type: chronic Qualified Code(s): I48.2 - Chronic atrial fibrillation (3) Dementia: Current visit: Yes Status: Chronic Stable. Continue sertraline. Qualifiers: Dementia type: unspecified type Dementia behavioral disturbance: with behavioral disturbance Qualified Code(s): F03.91 - Unspecified dementia with behavioral disturbance (4) DVT prophylaxis: Current visit: Yes Status: Acute On apixaban for atrial fibrillation. Apixaban resumed after surgery. (5) Discharge planning issues: Current visit: Yes Status: Acute She is a DNR/DNI. PT consulted for mobilization after surgery. Will likely need short-term rehab at a half-way facility when ready for discharge. This case was discussed with Dr. Whitaker who is in agreement. Subjective Interval history since last seen: Ms Hsu is postoperative day #1 Open reduction internal fixation of left proximal femur fracture with a sliding hip screw device by Dr. Mcclendon. She is having LLE pain. She states her leg is sore. She was unable to get out of bed with PT this morning due to LLE pain. Nursing is working on getting her pain under control. Tylenol has been scheduled. She lost her IV, nursing will leave it out and encourage oral intake. She is unable to engage in a full review of systems due to her cognitive status, she has word salad. She states, I am so sorry... I cannot remember anything, she appears frustrated. Exam Narrative Exam Narrative: General: she is laying in bed, awake and alert, not oriented. She does not appear to be in any distress. Speaking nonsensically with word salad. HEENT: normocephalic, atraumatic, pupils equal and round, mucous membranes moist. Neck: supple, no JVD. Cardiovascular: Irregularly irregular, nontachycardic, no murmur. Respiratory: respirations even and unlabored, lungs clear bilaterally. GI: normoactive bowel sounds, abdomen soft, nontender on palpation. : mckinney draining clear yellow urine. Extremities: LLE with surgical dressing intact, tenderness on palpation of left thigh, no significant edema, no erythema. Pedal pulses palpable bilaterally. Objective Objective Clinical Data: Abnormal lab results 05/21/19 05/21/19 Range/Units 06:45 06:45 WBC 15.73 H (4.4-10.8) k/cumm RBC 5.26 H (4.00-5.20) m/cumm MPV 11.3 H (8.0-11.0) fL Anion Gap 11.1 H (3-11) mmol/L BUN 23 H (7-18) mg/dL Glucose 121 H (70-100) mg/dL Vital Signs Temperature 36.7 C 05/21/19 07:25 Temperature Source Tympanic 05/21/19 07:25 Pulse 85 05/21/19 10:38 Pulse Rhythm Irregular 05/21/19 00:30 Pulse 89 05/19/19 03:20 Respiratory Rate 17 05/21/19 07:25 Respiratory Effort 05/21/19 00:30 Respiratory Depth Normal 05/21/19 00:30 Respiratory Pattern Normal 05/21/19 00:30 Blood Pressure 154/101 H 05/21/19 07:25 Blood Pressure Mean 110 05/19/19 02:49 Pulse Oximetry 93 L 05/21/19 07:25 Respiratory End-tidal CO2 23 05/20/19 14:24 Oxygen Delivery Method Room Air 05/21/19 07:25 Oxygen Flow Rate 0 05/21/19 07:25 Pain Level 0 05/21/19 00:30 Comment 05/21/19 00:30 Intake & Output 05/20/19 05/21/19 05/21/19 23:59 11:59 23:59 Intake Total 710 / 740 750 / 750 Output Total 400 / 1000 250 / 250 Balance 310 / -260 500 / 500 Weight 63.7 kg Intake: IV 710 / 710 550 / 550 Oral 200 / 200 Output: Urine 300 / 900 250 / 250 Estimated Blood Loss 100 / 100 Other: Urine Color Dark Lauren Light Lauren Urine Appearance Clear Clear Stool Size Moderate Stool Characteristics Liquid Emesis Description None Laboratory Results WBC 15.73 k/cumm (4.4-10.8) H 05/21/19 06:45 RBC 5.26 m/cumm (4.00-5.20) H 05/21/19 06:45 Hgb 15.3 g/dL (12.0-15.5) 05/21/19 06:45 Hct 45.5 % (36.0-46.0) 05/21/19 06:45 MCV 86.5 fL (80-95) 05/21/19 06:45 MCH 29.1 pg (27.0-33.0) 05/21/19 06:45 MCHC 33.6 g/dL (32.0-36.0) 05/21/19 06:45 RDW 14.1 % (11.7-14.6) 05/21/19 06:45 Plt Count 150 x1000/uL (130-400) 05/21/19 06:45 MPV 11.3 fL (8.0-11.0) H 05/21/19 06:45 Immature Gran % 0.4 05/19/19 00:55 Neutrophils % 73.8 05/19/19 00:55 Lymphocytes % 19.5 05/19/19 00:55 Monocytes % 4.4 05/19/19 00:55 Eosinophils % 1.5 05/19/19 00:55 Basophils % 0.4 05/19/19 00:55 Absolute Neutrophils 9.37 k/cumm (1.2-6.7) H 05/19/19 00:55 Absolute Lymphocytes 2.48 k/cumm (1.2-3.4) 05/19/19 00:55 Absolute Monocytes 0.56 k/cumm (0.11-0.7) 05/19/19 00:55 Absolute Eosinophils 0.19 k/cumm (0.0-0.7) 05/19/19 00:55 Absolute Basophils 0.05 k/cumm (0.0-0.2) 05/19/19 00:55 PT 10.8 sec (9.3-11.0) 05/19/19 06:36 INR 1.1 (0.9-1.1) 05/19/19 06:36 Sodium 140 mmol/L (136-145) 05/21/19 06:45 Potassium 3.8 mmol/L (3.5-5.1) 05/21/19 06:45 Chloride 105 mmol/L (98-107) 05/21/19 06:45 Carbon Dioxide 23.9 mmol/L (21.0-32.0) 05/21/19 06:45 Anion Gap 11.1 mmol/L (3-11) H 05/21/19 06:45 BUN 23 mg/dL (7-18) H 05/21/19 06:45 Creatinine 0.99 mg/dL (0.55-1.02) 05/21/19 06:45 Estimated GFR/1.73 m2 54.54 (mL/min/1.73m2) 05/21/19 06:45 Glucose 121 mg/dL (70-100) H 05/21/19 06:45 Calcium 8.8 mg/dL (8.5-10.1) 05/21/19 06:45 Magnesium 1.9 mg/dL (1.8-2.4) 05/19/19 00:55 Total Bilirubin 0.8 mg/dL (0.2-1.0) 05/20/19 06:25 AST 19 U/L (15-37) 05/20/19 06:25 ALT 30 U/L (12-78) 05/20/19 06:25 Alkaline Phosphatase 97 U/L (46-116) 05/20/19 06:25 Troponin I < 0.05 ng/mL (0.00-0.06) 05/19/19 11:00 Total Protein 6.6 g/dL (6.4-8.2) 05/20/19 06:25 Albumin 3.0 g/dL (3.4-5.0) L 05/20/19 06:25 TSH 3.27 uIU/mL (0.358-3.74) 05/19/19 08:10 Urine Color Yellow (Yellow) 05/19/19 06:40 Urine Clarity Clear (Clear) 05/19/19 06:40 Urine pH 8.5 (5-8) H 05/19/19 06:40 Ur Specific Fisher 1.020 (1.005-1.025) 05/19/19 06:40 Urine Protein Trace mg/dL (Negative) H 05/19/19 06:40 Urine Ketones Negative mg/dL (Negative) 05/19/19 06:40 Urine Blood Trace-intact (Negative) H 05/19/19 06:40 Urine Nitrite Negative (Negative) 05/19/19 06:40 Urine Bilirubin Negative (Negative) 05/19/19 06:40 Urine Urobilinogen 0.2 EU/dL (Up TO 0.2) 05/19/19 06:40 Ur Leukocyte Esterase Negative (Negative) 05/19/19 06:40 Urine RBC 3-5 (0-2) H 05/19/19 06:40 Urine WBC 0-2 HPF (0-5) 05/19/19 06:40 Ur Epithelial Cells Moderate HPF (Negative) 05/19/19 06:40 Urine Crystals Negative HPF (Negative) 05/19/19 06:40 Urine Bacteria Few HPF (Negative) 05/19/19 06:40 Urine Casts Negative LPF (Negative) 05/19/19 06:40 Urine Mucus Trace (Negative) 05/19/19 06:40 Urine Other Rare renal (Negative) 05/19/19 06:40 Ur Culture Indicated? No 05/19/19 06:40 Urine Glucose Negative mg/dL (Negative) 05/19/19 06:40 Digoxin 0.80 ng/mL (0.90-2.00) L 05/19/19 00:55 Patient ABO/Rh A Positive 05/19/19 07:00 Antibody Screen Negative 05/19/19 07:00
--- NOTE | 2019-05-21 12:43 | PT.INIE ---
Date of service: 05/21/19 Time of Service: 08:30 PT Notes Inpatient Physical Therapy Evaluation Date: 05/21/2019 Referring Doctor: Sam Mcclendon MD PT Orders: PT CONSULT: Status post compression left IT fracture Precautions: Fall. Standard. Impaired safety awareness. WBAT on L LE. Patient Profile/Admitting Diagnosis: Patient is a 74-year-old female with past medical history significant for CVA, atrial fibrillation, CHF, and dementia who sustained a closed intertrochanteric fracture of left hip due to an unwitnessed fall at home. Patient is status post ORIF of left hip using compression hip screw. PMHX: Medical History MVP (mitral valve prolapse) (Acute) Atrial fibrillation (Chronic) CHF (congestive heart failure) (Chronic) CVA (cerebral vascular accident) (Chronic) Depression (Chronic) Surgical History H/O mitral valve repair (Acute) History of bladder surgery (Acute) History of hysterectomy (Chronic) History of knee replacement (Chronic) Hx of cholecystectomy (Chronic) Social History/Home Situation: Patient has dementia and is a poor historian. PT is unable to extract information on home situation/social history at this time. 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 Current Functional Limitations: Need for assistance for all bed mobility, transfer, and ambulation task performed Equipment Owned/DME: PT is unable to extract information on equipment owned/DME at this time Subjective: Patient seen resting in bed. Patient sitter present PT throughout session. Patient will highly anxious and anticipate pain on the left hip any kind of movement. She continues to speak nonsensical responses. She is however able to follow instructions with maximal verbal, tactile, and visual cueing but was very much about getting out of bed for this session. Non-verbal expression of pain like facial grimacing, moaning, and groaning with attempts at movement noted. Objective: General Observation: Mepilex Ag on hip over hip surgical incision. Booker catheter in place. Anti-DVT pumps on bilateral legs. Mental Status: Alert only. Not oriented as to place and time. Required maximal, visual, and tactile cueing for all bed mobility tasks. Pain: Patient with facial grimacing, moaning, and groaning with attempts at movement Vital Signs: Oxygen saturation stayed above 90% on room during bed mobility tas performance ROM: Right Upper Extremity: Shoulder Flexion WFL. Shoulder abduction WFL. Elbow flexion WFL. Wrist flexion WFL. Functional opening and closing of hand WFL. Left Upper Extremity: Shoulder Flexion WFL. Shoulder abduction WFL. Elbow flexion WFL. Wrist flexion WFL. Functional opening and closing of hand WFL. Right Lower Extremity: Hip flexion WFL. Hip abduction WFL. Knee flexion WFL. Ankle dorsiflexion WFL. Ankle plantarflexion WFL. Left Lower Extremity: Patient was able to sitting at edge of bed allowing left hip and knee flexion. Patient required assistance with sliding hip sideways to about 30 to 40 degrees hip abduction WFL Patient was able to assume supine to sit allowing passive full left knee extension. Ankle dorsiflexion WFL. Ankle plantarflexion WFL. Strength: Right Upper Extremity: Shoulder flexors 4-/5. Shoulder abductors 4-/5. Elbow flexors 4/5. Elbow extensors 4-/5. Supervisor Agency Appointments strong. Left Upper Extremity: Shoulder flexors 4-/5. Shoulder abductors 4-/5. Elbow flexors 4/5. Elbow extensors 4-/5. Supervisor Agency Appointments strong. Right Lower Extremity: Hip flexors 4-/5. Hip abductors 4-/5. Knee flexors 3+/5. Knee extensors 3+/5. Ankle dorsiflexors 4/5. Ankle plantarflexors 4/5. Left Lower Extremity:Hip flexors 3-/5. Hip abductors 3-/5. Knee flexors 3-/5. Knee extensors 3+/5. Ankle dorsiflexors 4/5. Ankle plantarflexors 4/5. Sensation: Patient is able to points to the location of the pain on the mid and distal left lateral thigh Bed Mobility/Transfers: Rolling moderate assist of 2 Supine to sit moderate assist of 2 Sit to supine moderate assist of 2 Sit to stand not tested due to significantly increased anxiety and pain report Stand to sit not tested due to significantly increased anxiety and pain report Bed to chair not tested due to significantly increased anxiety and pain report Chair to bed not tested due to significantly increased anxiety and pain report Gait: Not tested due to increased anxiety and pain report with movement Balance: Static Sitting: Poor Dynamic Sitting: Poor Static Standing: Unable to test Dynamic Standing: Unable to test Special Tests: Mobility Limitations Standardized Measure [facility] AM-PAC 6 clicks Basic Mobility Inpatient Short Form: Raw Score: 8 CMS Score: 87% deficit Informed Consent/Education: Attempted to instruct patient in purpose of PT consult and plan of care. Assessment: 74-year-old female with nondisplaced closed intertrochanteric fracture of left hip status post ORIF. Patient presents with clinical signs and symptoms consistent with current/admitting diagnoses that have resulted to mobility limitations, gait instability, generalized weakness, and impairment of motor control as demonstrated by the following impairment level findings: 1. Decreased strength to B LE major muscle groups 2. Impaired sitting/standing balance 3. Impaired activity tolerance 4. Limitation of joint range of motion in right hip and knee Impairments are contributing to the following functional limitations: 1. Dependent bed mobility skills 2. Increased dependence with transfers 3. Inability to safely ambulate without assistive device and physical assistance 4. Increase completion time for mobility ADL performance 5. Increased fall risk 6. Inability to negotiate steps alone safely Patient is assessed as a 14005 high complexity based on the following: History: 74-year-old female with dementia and severely impaired safety awareness/judgment with non-displaced closed intertrochanteric fracture of left hip status post ORIF. Examination: Demonstrable impairment in strength, balance, and range of motion with underlying impairments and functional limitations as documented above Presentation:Evolving Decision Makin high complexity Goals: Goals X1 week 1. Supine-Sit minimal assist 2. Sit-Supine minimal assist 3. Sit-Stand minimal assist 4. Stand-Sit minimal assist 5. Bed-Chair minimal assist 6. Chair-Bed minimal assist 7. Independent gait on level surface with use of least restrictive device for at least 100 feet without report of pain nor dyspnea 8. Independent stair negotiation while holding onto bilateral rails for at least 5 from steps without report of pain nor dyspnea 9. Minimal assist with home exercise program 10. Good static and dynamic standing balance/tolerance Plan of Care/Treatment Plan: 1-2x/day, 7 days/week x 1 week. Plan of care has been reviewed with the OPTICIAN APPRENTICE providing the service under Physical Therapy direction. Initiate Physical Therapy intervention for strengthening, bed mobility, transfers, gait, stairs, balance training, use of assistive device. DISCHARGE RECOMMENDATIONS: Patient will benefit from assisted facility placement in order to progress mobility level, strength, and balance in preparation for a safe discharge to home. TREATMENT CODE/TIME: 9716 3 x 40 minutes, 9753 0 x 27 minutes beginning at 8:30 AM. Thank you very much for this referral. Stacey Allred PT, DPT, CLT [facility]
--- NOTE | 2019-05-21 12:47 | IN_ITS ---
Date of service: 05/21/19 Time of Service: 08:30 PT Notes Inpatient Physical Therapy Evaluation Date: 05/21/2019 Referring Doctor: Sam Mcclendon MD PT Orders: PT CONSULT: Status post compression left IT fracture Precautions: Fall. Standard. Impaired safety awareness. WBAT on L LE. Patient Profile/Admitting Diagnosis: Patient is a 74-year-old female with past medical history significant for CVA, atrial fibrillation, CHF, and dementia who sustained a closed intertrochanteric fracture of left hip due to an unwitnessed fall at home. Patient is status post ORIF of left hip using compression hip screw. PMHX: Medical History MVP (mitral valve prolapse) (Acute) Atrial fibrillation (Chronic) CHF (congestive heart failure) (Chronic) CVA (cerebral vascular accident) (Chronic) Depression (Chronic) Surgical History H/O mitral valve repair (Acute) History of bladder surgery (Acute) History of hysterectomy (Chronic) History of knee replacement (Chronic) Hx of cholecystectomy (Chronic) Social History/Home Situation: Patient has dementia and is a poor historian. PT is unable to extract information on home situation/social history at this time. 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 Current Functional Limitations: Need for assistance for all bed mobility, transfer, and ambulation task performed Equipment Owned/DME: PT is unable to extract information on equipment owned/DME at this time Subjective: Patient seen resting in bed. Patient sitter present PT throughout session. Patient will highly anxious and anticipate pain on the left hip any kind of movement. She continues to speak nonsensical responses. She is however able to follow instructions with maximal verbal, tactile, and visual cueing but was very much about getting out of bed for this session. Non-verbal expression of pain like facial grimacing, moaning, and groaning with attempts at movement noted. Objective: General Observation: Mepilex Ag on hip over hip surgical incision. Booker catheter in place. Anti-DVT pumps on bilateral legs. Mental Status: Alert only. Not oriented as to place and time. Required maximal, visual, and tactile cueing for all bed mobility tasks. Pain: Patient with facial grimacing, moaning, and groaning with attempts at m ovement Vital Signs: Oxygen saturation stayed above 90% on room during bed mobility tas performance ROM: Right Upper Extremity: Shoulder Flexion WFL. Shoulder abduction WFL. Elbow flexion WFL. Wrist flexion WFL. Functional opening and closing of hand WFL. Left Upper Extremity: Shoulder Flexion WFL. Shoulder abduction WFL. Elbow flexion WFL. Wrist flexion WFL. Functional opening and closing of hand WFL. Right Lower Extremity: Hip flexion WFL. Hip abduction WFL. Knee flexion WFL. Ankle dorsiflexion WFL. Ankle plantarflexion WFL. Left Lower Extremity: Patient was able to sitting at edge of bed allowing left hip and knee flexion. Patient required assistance with sliding hip sideways to about 30 to 40 degrees hip abduction WFL Patient was able to assume supine to sit allowing passive full left knee extension. Ankle dorsiflexion WFL. Ankle plantarflexion WFL. Strength: Right Upper Extremity: Shoulder flexors 4-/5. Shoulder abductors 4-/5. Elbow flexors 4/5. Elbow extensors 4-/5. Access Services Assistant strong. Left Upper Extremity: Shoulder flexors 4-/5. Shoulder abductors 4-/5. Elbow flexors 4/5. Elbow extensors 4-/5. Access Services Assistant strong. Right Lower Extremity: Hip flexors 4-/5. Hip abductors 4-/5. Knee flexors 3+/5. Knee extensors 3+/5. Ankle dorsiflexors 4/5. Ankle plantarflexors 4/5. Left Lower Extremity:Hip flexors 3-/5. Hip abductors 3-/5. Knee flexors 3-/5. Knee extensors 3+/5. Ankle dorsiflexors 4/5. Ankle plantarflexors 4/5. Sensation: Patient is able to points to the location of the pain on the mid and distal left lateral thigh Bed Mobility/Transfers: Rolling moderate assist of 2 Supine to sit moderate assist of 2 Sit to supine moderate assist of 2 Sit to stand not tested due to significantly increased anxiety and pain report Stand to sit not tested due to significantly increased anxiety and pain report Bed to chair not tested due to significantly increased anxiety and pain report Chair to bed not tested due to significantly increased anxiety and pain report Gait: Not tested due to increased anxiety and pain report with movement Balance: Static Sitting: Poor Dynamic Sitting: Poor Static Standing: Unable to test Dynamic Standing: Unable to test Special Tests: Mobility Limitations Standardized Measure [facility] AM-PAC 6 clicks Basic Mobility Inpatient Short Form: Raw Score: 8 CMS Score: 87% deficit Informed Consent/Education: Attempted to instruct patient in purpose of PT consult and plan of care. Assessment: 74-year-old female with nondisplaced closed intertrochanteric frac ture of left hip status post ORIF. Patient presents with clinical signs and symptoms consistent with current/admitting diagnoses that have resulted to mobility limitations, gait instability, generalized weakness, and impairment of motor control as demonstrated by the following impairment level findings: 1. Decreased strength to B LE major muscle groups 2. Impaired sitting/standing balance 3. Impaired activity tolerance 4. Limitation of joint range of motion in right hip and knee Impairments are contributing to the following functional limitations: 1. Dependent bed mobility skills 2. Increased dependence with transfers 3. Inability to safely ambulate without assistive device and physical assistance 4. Increase completion time for mobility ADL performance 5. Increased fall risk 6. Inability to negotiate steps alone safely Patient is assessed as a 19490 high complexity based on the following: History: 74-year-old female with dementia and severely impaired safety awareness/judgment with non-displaced closed intertrochanteric fracture of left hip status post ORIF. Examination: Demonstrable impairment in strength, balance, and range of motion with underlying impairments and functional limitations as documented above Presentation:Evolving Decision Makin high complexity Goals: Goals X1 week 1. Supine-Sit minimal assist 2. Sit-Supine minimal assist 3. Sit-Stand minimal assist 4. Stand-Sit minimal assist 5. Bed-Chair minimal assist 6. Chair-Bed minimal assist 7. Independent gait on level surface with use of least restrictive device for at least 100 feet without report of pain nor dyspnea 8. Independent stair negotiation while holding onto bilateral rails for at least 5 from steps without report of pain nor dyspnea 9. Minimal assist with home exercise program 10. Good static and dynamic standing balance/tolerance Plan of Care/Treatment Plan: 1-2x/day, 7 days/week x 1 week. Plan of care has been reviewed with the SIGNAL WORKER providing the service under Physical Therapy direction. Initiate Physical Therapy intervention for strengthening, bed mobility, transfers, gait, stairs, balance training, use of assistive device. DISCHARGE RECOMMENDATIONS: Patient will benefit from assisted facility placement in order to progress mobility level, strength, and balance in preparation for a safe discharge to home. TREATMENT CODE/TIME: 9716 3 x 40 minutes, 9753 0 x 27 minutes beginning at 8:30 AM. Thank you very much for this referral. Stacey Allred PT, DPT, CLT [facility]
--- NOTE | 2019-05-21 13:39 | PDOC.CMPRO ---
- If Service Date Differs Date of service: 05/21/19 Time of Service: 13:39 Care Management Progress Note S/O:Inna was sitting up in bed when CM came to visit. She was initially visibly agitated because she did not know /remember who CM was, but became calmer when discussions about her and home were introduced. Inna was unable to express herself clearly and was speaking in rhyming patterns. She has started working with PT. She will likely need rehab for a short time before she returns home. A: Inna is a 74 year old female admitted to [facility] on 05/19/19 with an intertrochanteric fracture of her left femur P:Inna is scheduled for surgery this afternoon.She will likely need SNF placement for rehab when ready. CM will continue to provide support to patient,family. and discharge planning process.
--- NOTE | 2019-05-21 13:49 | CMPROGNOTE_ITS ---
- If Service Date Differs Date of service: 05/21/19 Time of Service: 13:39 Care Management Progress Note S/O:Inna was sitting up in bed when CM came to visit. She was initially visibly agitated because she did not know /remember who CM was, but became calmer when discussions about her and home were introduced. Inna was unable to express herself clearly and was speaking in rhyming patterns. She has started working with PT. She will likely need rehab for a short time before she returns home. A: Inna is a 74 year old female admitted to [facility] on 05/19/19 with an intertrochanteric fracture of her left femur P:Inna is scheduled for surgery this afternoon.She will likely need SNF placement for rehab when ready. CM will continue to provide support to patient,family. and discharge planning process.
[2019-05-21] MEDS: Acetaminophen 500 MG TAB 1000 MG PO ×2 (15:23→23:50)
--- NOTE | 2019-05-21 17:04 | W.PM.PROGNOT ---
Date of Service Date of service: 05/21/19 Time of Service: 07:36 Assessment and Plan (1) Intertrochanteric fracture of left femur: Current visit: Yes Status: Acute Status post left hip fracture fixation. Still confused per baseline. We will treat for pain as I think pain could be contributing to her confusion and her reluctance to participate with nursing. Booker has been discontinued. Mobilize with physical therapy, weightbearing as tolerated with assistive device. Plan for bed to chair to start. Resume Eliquis. Qualifiers: Encounter type: initial encounter Fracture type: closed Fracture alignment: nondisplaced Qualified Code(s): S72.145A - Nondisplaced intertrochanteric fracture of left femur, initial encounter for closed fracture Subjective Interval history since last seen: Inna has been confused overnight. She does complains of pain about the left hip. She is not mobilize. She is try to put her Booker and therefore this Booker was discontinued. No other acute issues identified by nursing. Exam Narrative Exam Narrative: Confused. Left hip dressing is clean dry and intact. Reluctant to allow me to examine the left hip but does allow some internal and external rotation without any notable facial sign of pain. She is able to extend and flex her great toe and the ankle. Objective Objective Clinical Data: Abnormal lab results 05/21/19 05/21/19 Range/Units 06:45 06:45 WBC 15.73 H (4.4-10.8) k/cumm RBC 5.26 H (4.00-5.20) m/cumm MPV 11.3 H (8.0-11.0) fL Anion Gap 11.1 H (3-11) mmol/L BUN 23 H (7-18) mg/dL Glucose 121 H (70-100) mg/dL Vital Signs Temperature 37.0 C 05/21/19 16:31 Temperature Source Tympanic 05/21/19 16:31 Pulse 89 05/21/19 16:31 Pulse Rhythm Irregular 05/21/19 15:47 Pulse 89 05/19/19 03:20 Respiratory Rate 18 05/21/19 16:31 Respiratory Effort Non-Labored 05/21/19 15:47 Respiratory Depth Normal 05/21/19 15:47 Respiratory Pattern Normal 05/21/19 15:47 Blood Pressure 108/65 05/21/19 16:31 Blood Pressure Mean 110 07/01/19 02:49 Pulse Oximetry 94 L 05/21/19 16:31 Respiratory End-tidal CO2 23 05/20/19 14:24 Oxygen Delivery Method Room Air 05/21/19 16:31 Oxygen Flow Rate 0 05/21/19 16:31 Pain Level 0 05/21/19 16:31 Comment 05/21/19 00:30 Intake & Output 05/20/19 05/21/19 05/21/19 23:59 11:59 23:59 Intake Total 710 / 740 990 / 1680 690 / 1680 Output Total 400 / 1000 250 / 450 200 / 450 Balance 310 / -260 740 / 1230 490 / 1230 Weight 63.7 kg Intake: IV 710 / 710 550 / 550 Oral 440 / 1130 690 / 1130 Output: Urine 300 / 900 250 / 450 200 / 450 Estimated Blood Loss 100 / 100 Other: Urine Color Dark Lauren Light Lauren Yellow Urine Appearance Clear Clear Clear Stool Size Moderate Stool Characteristics Liquid Emesis Description None Laboratory Results WBC 15.73 k/cumm (4.4-10.8) H 05/21/19 06:45 RBC 5.26 m/cumm (4.00-5.20) H 05/21/19 06:45 Hgb 15.3 g/dL (12.0-15.5) 05/21/19 06:45 Hct 45.5 % (36.0-46.0) 05/21/19 06:45 MCV 86.5 fL (80-95) 05/21/19 06:45 MCH 29.1 pg (27.0-33.0) 05/21/19 06:45 MCHC 33.6 g/dL (32.0-36.0) 05/21/19 06:45 RDW 14.1 % (11.7-14.6) 05/21/19 06:45 Plt Count 150 x1000/uL (130-400) 05/21/19 06:45 MPV 11.3 fL (8.0-11.0) H 05/21/19 06:45 Immature Gran % 0.4 05/19/19 00:55 Neutrophils % 73.8 05/19/19 00:55 Lymphocytes % 19.5 05/19/19 00:55 Monocytes % 4.4 05/19/19 00:55 Eosinophils % 1.5 05/19/19 00:55 Basophils % 0.4 05/19/19 00:55 Absolute Neutrophils 9.37 k/cumm (1.2-6.7) H 05/19/19 00:55 Absolute Lymphocytes 2.48 k/cumm (1.2-3.4) 05/19/19 00:55 Absolute Monocytes 0.56 k/cumm (0.11-0.7) 05/19/19 00:55 Absolute Eosinophils 0.19 k/cumm (0.0-0.7) 05/19/19 00:55 Absolute Basophils 0.05 k/cumm (0.0-0.2) 05/19/19 00:55 PT 10.8 sec (9.3-11.0) 05/19/19 06:36 INR 1.1 (0.9-1.1) 05/19/19 06:36 Sodium 140 mmol/L (136-145) 05/21/19 06:45 Potassium 3.8 mmol/L (3.5-5.1) 05/21/19 06:45 Chloride 105 mmol/L (98-107) 05/21/19 06:45 Carbon Dioxide 23.9 mmol/L (21.0-32.0) 05/21/19 06:45 Anion Gap 11.1 mmol/L (3-11) H 05/21/19 06:45 BUN 23 mg/dL (7-18) H 05/21/19 06:45 Creatinine 0.99 mg/dL (0.55-1.02) 05/21/19 06:45 Estimated GFR/1.73 m2 54.54 (mL/min/1.73m2) 05/21/19 06:45 Glucose 121 mg/dL (70-100) H 05/21/19 06:45 Calcium 8.8 mg/dL (8.5-10.1) 05/21/19 06:45 Magnesium 1.9 mg/dL (1.8-2.4) 05/19/19 00:55 Total Bilirubin 0.8 mg/dL (0.2-1.0) 05/20/19 06:25 AST 19 U/L (15-37) 05/20/19 06:25 ALT 30 U/L (12-78) 05/20/19 06:25 Alkaline Phosphatase 97 U/L (46-116) 05/20/19 06:25 Troponin I < 0.05 ng/mL (0.00-0.06) 05/19/19 11:00 Total Protein 6.6 g/dL (6.4-8.2) 05/20/19 06:25 Albumin 3.0 g/dL (3.4-5.0) L 05/20/19 06:25 TSH 3.27 uIU/mL (0.358-3.74) 05/19/19 08:10 Urine Color Yellow (Yellow) 05/19/19 06:40 Urine Clarity Clear (Clear) 05/19/19 06:40 Urine pH 8.5 (5-8) H 05/19/19 06:40 Ur Specific [place] 1.020 (1.005-1.025) 05/19/19 06:40 Urine Protein Trace mg/dL (Negative) H 05/19/19 06:40 Urine Ketones Negative mg/dL (Negative) 05/19/19 06:40 Urine Blood Trace-intact (Negative) H 05/19/19 06:40 Urine Nitrite Negative (Negative) 05/19/19 06:40 Urine Bilirubin Negative (Negative) 05/19/19 06:40 Urine Urobilinogen 0.2 EU/dL (Up TO 0.2) 05/19/19 06:40 Ur Leukocyte Esterase Negative (Negative) 05/19/19 06:40 Urine RBC 3-5 (0-2) H 05/19/19 06:40 Urine WBC 0-2 HPF (0-5) 05/19/19 06:40 Ur Epithelial Cells Moderate HPF (Negative) 05/19/19 06:40 Urine Crystals Negative HPF (Negative) 05/19/19 06:40 Urine Bacteria Few HPF (Negative) 05/19/19 06:40 Urine Casts Negative LPF (Negative) 05/19/19 06:40 Urine Mucus Trace (Negative) 05/19/19 06:40 Urine Other Rare renal (Negative) 05/19/19 06:40 Ur Culture Indicated? No 05/19/19 06:40 Urine Glucose Negative mg/dL (Negative) 05/19/19 06:40 Digoxin 0.80 ng/mL (0.90-2.00) L 05/19/19 00:55 Patient ABO/Rh A Positive 05/19/19 07:00 Antibody Screen Negative 05/19/19 07:00
[2019-05-21] MEDS: Omeprazole 20 MG CAPCR PO (19:43)
[2019-05-21] MEDS: Atorvastatin 40 MG TAB PO (19:43)
[2019-05-21] MEDS: Apixaban 5 MG TAB PO (21:24)
[2019-05-22 06:30] VITALS: BP 150/107; PULSE 82; RESP 18; TEMP 37; O2SAT 93
[2019-05-22] MEDS: Omeprazole 20 MG CAPCR PO ×2 (07:00→19:14)
[2019-05-22 07:40] VITALS: BP 132/85; PULSE 74; RESP 16; TEMP 36; O2SAT 96
[2019-05-22 07:57] VITALS: PULSE 74
[2019-05-22] MEDS: Digoxin 0.125 MG TAB PO (07:57)
[2019-05-22] MEDS: Sertraline 50 MG TAB 150 MG PO (07:58)
[2019-05-22] MEDS: Docusate Sodium 100 MG CAP PO ×2 (07:58→15:59)
[2019-05-22] MEDS: Acetaminophen 500 MG TAB 1000 MG PO ×2 (07:58→15:59)
[2019-05-22] MEDS: Ibuprofen 400 MG TAB PO ×2 (07:58→19:14)
[2019-05-22] MEDS: Metoprolol CR 50 MG TABCR PO ×2 (07:58→19:14)
--- NOTE | 2019-05-22 08:58 | PT.INTREAT ---
Date of service: 05/22/19 Time of Service: 08:58 PT Notes 05/22/19 SUBJECTIVE: Pt stating she does not know where she is. She notes some discomfort in the left hip upon movement. OBJECTIVE: Seated in recliner upon entering room. Nursing would like her to return to bed. TRANSFERS Sit to stand: Mod A x 2 Stand to sit: Mod A x 2 Sit to supine: Mod A x 2 GAIT Device: FWW Weight bearing: WBAT L Assist: Min A x 2 Distance: 5' Deviation: Max verbal cueing for foot placement, walker management and encouragement. ASSESSMENT: Pt continues to be confused this AM. She is comfortable in sitting and supine positions with most discomfort noted with weight bearing. She is able to bear some weight through the left LE. Requires significant amount of cueing with one step commands. PLAN: Continue per POC. Treatment time; 25 minutes [id number] Karina Izaguirre, [employer]PERVISOR
[2019-05-22] MEDS: traMADol 50 MG TAB PO (10:58)
[2019-05-22 11:40] VITALS: BP 118/78; PULSE 80; RESP 16; TEMP 36.3; O2SAT 94
--- NOTE | 2019-05-22 11:52 | W.PM.PROGNOT ---
Date of Service Date of service: 05/22/19 Time of Service: 11:52 Assessment and Plan (1) Intertrochanteric fracture of left femur: Current visit: Yes Status: Acute Postoperative day #2 Open reduction internal fixation of left proximal femur fracture with a sliding hip screw device by Dr. Mcclendon. She has LLE pain s/p surgery. Tylenol is scheduled, continue PRN tramadol and ibuprofen. PPI for GI protection. Continue to mobilize with PT. Will need placement at a shelter facility for rehab when she is ready for discharge from the hospital. Qualifiers: Encounter type: initial encounter Fracture type: closed Fracture alignment: nondisplaced Qualified Code(s): S72.145A - Nondisplaced intertrochanteric fracture of left femur, initial encounter for closed fracture (2) Atrial fibrillation: Current visit: No Status: Chronic Rate controlled. Telemetry discontinued yesterday. Eliquis resumed after surgery. Continue beta-domitila and digoxin. Qualifiers: Atrial fibrillation type: chronic Qualified Code(s): I48.2 - Chronic atrial fibrillation (3) Dementia: Current visit: Yes Status: Chronic Stable, appears to be at baseline. Continue sertraline. Qualifiers: Dementia type: unspecified type Dementia behavioral disturbance: with behavioral disturbance Qualified Code(s): F03.91 - Unspecified dementia with behavioral disturbance (4) DVT prophylaxis: Current visit: Yes Status: Acute On apixaban for atrial fibrillation. Apixaban resumed after surgery. (5) Discharge planning issues: Current visit: Yes Status: Acute She is a DNR/DNI. PT consulted for mobilization after surgery. Will likely need short-term rehab at a shelter facility when ready for discharge. This case was discussed with Dr. Whitaker who is in agreement. Subjective Interval history since last seen: Ms Hsu is postoperative day #2 Open reduction internal fixation of left proximal femur fracture with a sliding hip screw device by Dr. Mcclendon. She remains confused, appears to be baseline. She reports pain in the left hip with palpation. She is able to state that she is in the hospital today, but unable to state the name of the hospital or town. She got up with PT today. Unable to provide information due to confusion and aphasia. Exam Narrative Exam Narrative: General: she is laying in bed, awake and alert, not oriented. She is able to report that she is in the hospital today, but unable to state the town or name of the hospital. Not oriented to self or time. She does not appear to be in any distress. Speaking nonsensically with word salad. HEENT: normocephalic, [place], swollen area on left cheek, does not appear tender on palpation, not warm to touch. Pupils equal and round, mucous membranes moist. Neck: supple, no JVD. Cardiovascular: Irregularly irregular, nontachycardic, no murmur. Respiratory: respirations even and unlabored, lungs clear bilaterally. GI: normoactive bowel sounds, abdomen soft, nontender on palpation. : mckinney draining clear yellow urine. Extremities: LLE with surgical dressing intact, tenderness on palpation of left thigh, no significant edema, no erythema. Pedal pulses palpable bilaterally. Objective Objective Clinical Data: Vital Signs Temperature 36 C L 05/22/19 07:40 Temperature Source Tympanic 05/22/19 07:40 Pulse 74 05/22/19 07:57 Pulse Rhythm Irregular 05/22/19 07:58 Pulse 89 05/19/19 03:20 Respiratory Rate 16 05/22/19 07:40 Respiratory Effort Non-Labored 05/22/19 07:58 Respiratory Depth Normal 05/22/19 07:58 Respiratory Pattern Normal 05/22/19 07:58 Blood Pressure 132/85 05/22/19 07:40 Blood Pressure Mean 110 05/19/19 02:49 Pulse Oximetry 96 05/22/19 07:40 Respiratory End-tidal CO2 23 05/20/19 14:24 Oxygen Delivery Method Room Air 05/22/19 07:40 Oxygen Flow Rate 0 05/22/19 07:40 Pain Level 0 05/21/19 19:42 Comment 05/22/19 07:40 Intake & Output 05/21/19 05/21/19 05/22/19 11:59 23:59 11:59 Intake Total 990 / 1680 690 / 1680 750 / 750 Output Total 250 / 450 200 / 450 Balance 740 / 1230 490 / 1230 750 / 750 Weight 63.7 kg Intake: IV 550 / 550 Oral 440 / 1130 690 / 1130 750 / 750 Output: Urine 250 / 450 200 / 450 Other: Urine Color Light Lauren Yellow Urine Appearance Clear Clear Comment incontinent x 1, [place] [facility] with no further void. Voiding Methods Incontinent Diaper Incontinent Laboratory Results WBC 15.73 k/cumm (4.4-10.8) H 05/21/19 06:45 RBC 5.26 m/cumm (4.00-5.20) H 05/21/19 06:45 Hgb 15.3 g/dL (12.0-15.5) 05/21/19 06:45 Hct 45.5 % (36.0-46.0) 05/21/19 06:45 MCV 86.5 fL (80-95) 05/21/19 06:45 MCH 29.1 pg (27.0-33.0) 05/21/19 06:45 MCHC 33.6 g/dL (32.0-36.0) 05/21/19 06:45 RDW 14.1 % (11.7-14.6) 05/21/19 06:45 Plt Count 150 x1000/uL (130-400) 05/21/19 06:45 MPV 11.3 fL (8.0-11.0) H 05/21/19 06:45 Immature Gran % 0.4 05/19/19 00:55 Neutrophils % 73.8 05/19/19 00:55 Lymphocytes % 19.5 05/19/19 00:55 Monocytes % 4.4 05/19/19 00:55 Eosinophils % 1.5 05/19/19 00:55 Basophils % 0.4 05/19/19 00:55 Absolute Neutrophils 9.37 k/cumm (1.2-6.7) H 05/19/19 00:55 Absolute Lymphocytes 2.48 k/cumm (1.2-3.4) 05/19/19 00:55 Absolute Monocytes 0.56 k/cumm (0.11-0.7) 05/19/19 00:55 Absolute Eosinophils 0.19 k/cumm (0.0-0.7) 05/19/19 00:55 Absolute Basophils 0.05 k/cumm (0.0-0.2) 05/19/19 00:55 PT 10.8 sec (9.3-11.0) 05/19/19 06:36 INR 1.1 (0.9-1.1) 05/19/19 06:36 Sodium 140 mmol/L (136-145) 05/21/19 06:45 Potassium 3.8 mmol/L (3.5-5.1) 05/21/19 06:45 Chloride 105 mmol/L (98-107) 05/21/19 06:45 Carbon Dioxide 23.9 mmol/L (21.0-32.0) 05/21/19 06:45 Anion Gap 11.1 mmol/L (3-11) H 05/21/19 06:45 BUN 23 mg/dL (7-18) H 05/21/19 06:45 Creatinine 0.99 mg/dL (0.55-1.02) 05/21/19 06:45 Estimated GFR/1.73 m2 54.54 (mL/min/1.73m2) 05/21/19 06:45 Glucose 121 mg/dL (70-100) H 05/21/19 06:45 Calcium 8.8 mg/dL (8.5-10.1) 05/21/19 06:45 Magnesium 1.9 mg/dL (1.8-2.4) 05/19/19 00:55 Total Bilirubin 0.8 mg/dL (0.2-1.0) 05/20/19 06:25 AST 19 U/L (15-37) 05/20/19 06:25 ALT 30 U/L (12-78) 05/20/19 06:25 Alkaline Phosphatase 97 U/L (46-116) 05/20/19 06:25 Troponin I < 0.05 ng/mL (0.00-0.06) 05/19/19 11:00 Total Protein 6.6 g/dL (6.4-8.2) 05/20/19 06:25 Albumin 3.0 g/dL (3.4-5.0) L 05/20/19 06:25 TSH 3.27 uIU/mL (0.358-3.74) 05/19/19 08:10 Urine Color Yellow (Yellow) 05/19/19 06:40 Urine Clarity Clear (Clear) 05/19/19 06:40 Urine pH 8.5 (5-8) H 05/19/19 06:40 Ur Specific [place] 1.020 (1.005-1.025) 05/19/19 06:40 Urine Protein Trace mg/dL (Negative) H 05/19/19 06:40 Urine Ketones Negative mg/dL (Negative) 05/19/19 06:40 Urine Blood Trace-intact (Negative) H 05/19/19 06:40 Urine Nitrite Negative (Negative) 05/19/19 06:40 Urine Bilirubin Negative (Negative) 05/19/19 06:40 Urine Urobilinogen 0.2 EU/dL (Up TO 0.2) 05/19/19 06:40 Ur Leukocyte Esterase Negative (Negative) 05/19/19 06:40 Urine RBC 3-5 (0-2) H 05/19/19 06:40 Urine WBC 0-2 HPF (0-5) 05/19/19 06:40 Ur Epithelial Cells Moderate HPF (Negative) 05/19/19 06:40 Urine Crystals Negative HPF (Negative) 05/19/19 06:40 Urine Bacteria Few HPF (Negative) 05/19/19 06:40 Urine Casts Negative LPF (Negative) 05/19/19 06:40 Urine Mucus Trace (Negative) 05/19/19 06:40 Urine Other Rare renal (Negative) 05/19/19 06:40 Ur Culture Indicated? No 05/19/19 06:40 Urine Glucose Negative mg/dL (Negative) 05/19/19 06:40 Digoxin 0.80 ng/mL (0.90-2.00) L 05/19/19 00:55 Patient ABO/Rh A Positive 05/19/19 07:00 Antibody Screen Negative 05/19/19 07:00
--- NOTE | 2019-05-22 15:41 | PDOC.CMPRO ---
- If Service Date Differs Date of service: 05/22/19 Time of Service: 15:41 Care Management Progress Note S/O:Inna was sitting up in the chair today she is alert. Plan will be for her to be discharged to Rehab facility prior to returning home. Referrals pending to [facility]. Anticiapte she will be ready for discharge on Sunday. Transpiration will be via ambulance coordinated by CM. A: Inna is a 74 year old female admitted to [facility] on 05/19/19 with an intertrochanteric fracture of her left femur P:Inna is status post left femur fracture repair. She is doing well with PT. She will need SNF placement for rehab when ready referrals pending [facility]. CM will continue to provide support to patient,family. and discharge planning process.
[2019-05-22 15:43] VITALS: BP 136/83; PULSE 86; RESP 20; TEMP 36.9; O2SAT 94
--- NOTE | 2019-05-22 15:44 | CMPROGNOTE_ITS ---
- If Service Date Differs Date of service: 05/22/19 Time of Service: 15:41 Care Management Progress Note S/O:Inna was sitting up in the chair today she is alert. Plan will be for her to be discharged to Rehab facility prior to returning home. Referrals pending to [facility]. Anticiapte she will be ready for discharge on Sunday. Transpiration will be via ambulance coordinated by CM. A: Inna is a 74 year old female admitted to [facility] on 05/19/19 with an intertrochanteric fracture of her left femur P:Inan is status post left femur fracture repair. She is doing well with PT. She will need SNF placement for rehab when ready referrals pending [facility]. CM will continue to provide support to patient,family. and discharge planning process.
[2019-05-22] MEDS: Atorvastatin 40 MG TAB PO (19:13)
[2019-05-22] MEDS: Apixaban 5 MG TAB PO (19:14)
[2019-05-22 19:18] VITALS: BP 152/88; PULSE 87; RESP 16; TEMP 36; O2SAT 94
[2019-05-23] MEDS: Acetaminophen 500 MG TAB 1000 MG PO ×2 (01:10→08:26)
[2019-05-23 01:26] VITALS: BP 156/99; PULSE 97; RESP 16; TEMP 36.7; O2SAT 96
[2019-05-23 03:34] VITALS: BP 132/79; PULSE 82; RESP 16; TEMP 36.8; O2SAT 95
[2019-05-23 07:04] LABS: HCT 47.5 % (36.0-46.0); HGB 15.5 g/dL (12.0-15.5); Mean Corp. HGB Concentration 32.6 g/dL (32.0-36.0); Mean Corpuscular Hemoglobin 28.7 pg (27.0-33.0); Mean Corpuscular Volume 87.8 fL (80-95); Mean Platelet Volume 11.6 fL (8.0-11.0); Platelet Count 183 x1000/uL (130-400); RBC 5.41 m/cumm (4.00-5.20); RBC Distribution Width 14.4 % (11.7-14.6); White Blood Cell Count 12.14 k/cumm (4.4-10.8)
[2019-05-23 08:03] VITALS: BP 149/84; PULSE 83; RESP 18; TEMP 36.7; O2SAT 95
[2019-05-23 08:25] VITALS: PULSE 83
[2019-05-23] MEDS: Digoxin 0.125 MG TAB PO (08:25)
[2019-05-23] MEDS: Omeprazole 20 MG CAPCR PO (08:25)
[2019-05-23] MEDS: Sertraline 50 MG TAB 150 MG PO (08:25)
[2019-05-23] MEDS: Metoprolol CR 50 MG TABCR PO (08:25)
[2019-05-23] MEDS: Ibuprofen 400 MG TAB PO (08:26)
--- NOTE | 2019-05-23 09:45 | PDOC.CMDIS ---
LACE Index Scoring Tool - Questions: Length of Stay (in days): 4 - 6 Acuity (Admit via E.D.?): Yes Comorbidities: Cerebrovascular Disease, Congestive Heart Failure, Dementia E.D. Visits: 7 - Answers: Total Score: 16 Risk of Readmission: High Risk Care Management Discharge Reason for Hospitalization: intertrochanteric fracture of left femur Discharge Plan: She is being transferred via [place] to [facility] for continued rehab services. Family has been notified and will meet her at [facility] this afternoon. Patient/Family Education Needs: RN to review d/c instructions re meds and activity levels with [facility] staff. Services Needed at Discharge: Occupational Therapy, Physical Therapy, Custodial Facility
[2019-05-23 10:00] VITALS: O2SAT 95
--- NOTE | 2019-05-23 10:00 | DI.RAD_ITS ---
SYMPTOM/DIAGNOSIS: S/P ORIF LT IT HIP FX LEFT HIP: Comparison is made with intraoperative images of 20 May 2019, A compression screw is in place in the proximal left femur for fixation of the previously noted intertrochanteric fracture. The fracture alignment appears anatomic. Skin rosa are seen.
--- NOTE | 2019-05-23 11:33 | PT.INTREAT ---
Date of service: 05/23/19 Time of Service: 08:56 PT Notes Inpatient Physical Therapy Treatment Note [facility] Date: 05/23/2019 PRECAUTIONS: Fall. Standard. Impaired safety awareness. SUBJECTIVE:Patient continues to express pain on L hip with movement and continues to be highly anxious about moving and putting weight on her L LE. She did not verbalize nausea and dizziness during gait activity. She reports no chest pain nor headache throughout PT session. OBJECTIVE: Patient seen resting in recliner. Mepilex Ag on L hip surgical incision.. Ice pack on L hip. Patient appears to be perkier today and more receptive of moving with PT. Although verbalization continues to be have disorganized, unintelligible, random speech but is able to follow instructions when given verbal and visual cues. PAIN: Patient complained about moderate to maximum pain with weight-bearing but has been able to move through activity without undue difficulty BED MOBILITY/TRANSFERS Sit-stand: moderate assist of 2 Stand-sit: moderate assist of 2 Bed-Chair: moderate assist of 2 Chair-bed: moderate assist of 2 GAIT Assistive Device: FWW Weight bearing: WBAT on L Assist: Moderate A of 2 with recliner follow done for safety Distance: 15 feet x 2 Deviation: Antalgia observed with increased stance time noted on affected LE and decreased swing time on non-affected side. Patient required initiation of walker forward propulsion so she can continue to move forward. Although she appeared anxious about doing it and was trying to verbalize her fear of falling, she was able to tolerate said distance without significant difficulty. VITALS: mmHg, % on RA, bpm, cpm. ASSESSMENT: Today's sessions were given in 3 small sessions with the first one attempting to have patient stand up from sitting but proved to be unsuccessful . The second session was for providing assistance to TIN CAN FEEDER with bedside commode>stretcher transfer so patient could be taken down for imaging. Third session was for assisted level surface ambulation with assist of TIN CAN FEEDER. Patient demonstrates good tolerance to physical therapy session with observed improvement in terms of pain level, activity tolerance, and participation level. PLAN: Patient to progress with mobility level, functional performance, and knowledge of HEP to achieve previously established goals. TREATMENT CODE/TIME: Session 1 for 25 minutes beginning at 8:56 am, session 2 for 11 minutes beginning at 10:06 am, and session three for 16 minutes beginning at 11:05 am.
--- NOTE | 2019-05-23 11:43 | PTTR_ITS ---
Date of service: 05/23/19 Time of Service: 08:56 PT Notes Inpatient Physical Therapy Treatment Note [facility] Date: 05/23/2019 PRECAUTIONS: Fall. Standard. Impaired safety awareness. SUBJECTIVE:Patient continues to express pain on L hip with movement and continues to be highly anxious about moving and putting weight on her L LE. She did not verbalize nausea and dizziness during gait activity. She reports no chest pain nor headache throughout PT session. OBJECTIVE: Patient seen resting in recliner. Mepilex Ag on L hip surgical incision.. Ice pack on L hip. Patient appears to be perkier today and more receptive of moving with PT. Although verbalization continues to be have disorganized, unintelligible, random speech but is able to follow instructions when given verbal and visual cues. PAIN: Patient complained about moderate to maximum pain with weight-bearing but has been able to move through activity without undue difficulty BED MOBILITY/TRANSFERS Sit-stand: moderate assist of 2 Stand-sit: moderate assist of 2 Bed-Chair: moderate assist of 2 Chair-bed: moderate assist of 2 GAIT Assistive Device: FWW Weight bearing: WBAT on L Assist: Moderate A of 2 with recliner follow done for safety Distance: 15 feet x 2 Deviation: Antalgia observed with increased stance time noted on affected LE and decreased swing time on non-affected side. Patient required initiation of walker forward propulsion so she can continue to move forward. Although she appeared anxious about doing it and was trying to verbalize her fear of falling, she was able to tolerate said distance without significant difficulty. VITALS: mmHg, % on RA, bpm, cpm. ASSESSMENT: Today's sessions were given in 3 small sessions with the first one attempting to have patient stand up from sitting but proved to be unsuccessful . The second session was for providing assistance to PLASTICS SCIENTIST with bedside commode>stretcher transfer so patient could be taken down for imaging. Third session was for assisted level surface ambulation with assist of PLASTICS SCIENTIST. Patient demonstrates good tolerance to physical therapy session with observed improvement in terms of pain level, activity tolerance, and participation level. PLAN: Patient to progress with mobility level, functional performance, and knowledge of HEP to achieve previously established goals. TREATMENT CODE/TIME: Session 1 for 25 minutes beginning at 8:56 am, session 2 for 11 minutes beginning at 10:06 am, and session three for 16 minutes beginning at 11:05 am.
[2019-05-23 12:02] VITALS: BP 130/81; PULSE 86; RESP 19; TEMP 36.7; O2SAT 95
--- NOTE | 2019-05-23 12:22 | W.PM.DS.N ---
Date of service: 05/23/19 Time of Service: 12:23 DS: Diagnosis Discharge Diagnosis (1) Intertrochanteric fracture of left femur: Status: Acute (2) Atrial fibrillation: Status: Chronic (3) Dementia: Status: Chronic Discharge Plan Disposition Patient Disposition: SNF (LEVEL 1) [facility] Condition: Good Discharge Details Reason For Visit: CLOSED LEFT INTERTROCHANTERIC FRACTURE,DEMENTIA,CA Admit Date/Time: 05/19/19 02:57 Admit Provider: Nando Ruiz Attending Provider: Nando Ruiz Primary Care Provider: Elizabeth [facility]ral Hospital Course Hospital Course: Inna Hsu is a very pleasant 74 year old female with a past medical history significant for Atrial fibrillation, anticoagulated on apixiban, cardiomyopathy, CVA with aphasia and severe dementia who fell at home and sustained a left intertrochanteric hip fracture. She was admitted to the hospitalist service for preoperative evaluation with an ortho consult. Given the unwitnessed fall at home, she had a cardaic work up prior to the surgery including an EKG which showed right bundle branch block with no acute ST-T changes or ischemic changes observed. She was monitored on telemetry and was noted to be in a-fib with rates in the 80s and 90s. She had an echocardiogram which showed LVEF of 65-70%, with diastolic dysfunction and mild pulmonary hypertension. She had a carotid artery ultrasound which did not show significant stenosis. Using the Yeung perioperative cardiac risk calculator, she was found to have <1% risk for cardiac event for an intermediate risk procedure. She went on to have an Open reduction internal fixation of left proximal femur fracture with a sliding hip screw device by Dr. Mcclendon. She is currently post operative day #3. She has had some discomfort with ambulation since her surgery, due to her advanced dementia and aphasia, she is unable to ask for pain medication, therefore, acetaminophen has been scheduled. She also has as needed tramadol and ibuprofen. A PPI was added to her regimen as well, given that she is on a apixaban and an NSAID. She has been working with physical therapy and progressing well, physical therapy notes that she did complain of pain with weightbearing but has been able to move through the activity of ambulation. Given her presentation of pain, Dr. Mcclendon ordered a repeat hip x-ray today to ensure that the components are in the correct position. The left hip x-ray showed proper placement of the components. It is likely that her advanced dementia contributes to her pain response and she will need regular medication to reduce her pain. She is discharged to [facility] and rehab today where she will continue working with physical therapy to gain strength prior to returning home. Home Meds and New Rx's Prescriptions: New polyethylene glycol 3350 17 gram Powder In Packet 17 g PO DAILY PRN PRN (Reason: Constipation) Qty: 0 RF: 0 tramadol 50 mg Tablet 50 mg PO Q4H PRN PRNQty: 18 RF: 0 acetaminophen [Mapap Extra Strength] 500 mg Tablet 1,000 mg PO Q8H Qty: 0 RF: 0 ibuprofen 400 mg Tablet 400 mg PO Q8H PRN PRN (Reason: Pain) Qty: 0 RF: 0 docusate sodium [Colace] 100 mg Capsule 100 mg PO TID PRN PRNQty: 0 RF: 0 omeprazole 20 mg Capsule,Delayed Release(Dr/Ec) 20 mg PO BID@729,1999 Qty: 0 RF: 0 Continued sertraline 100 MG tablet 150 mg PO DAILY RF: 0 atorvastatin [Lipitor] 40 MG tablet 40 mg PO QPM Qty: 30 RF: 0 metoprolol succinate 50 MG tablet extended release 24 hr 50 mg PO BID RF: 0 Myrbetriq 25 MG tablet extended release 24 hr 50 mg PO BID RF: 0 Azo Bladder Control 300 mg Capsule 1 cap PO BID RF: 0 acetaminophen 325 mg Tablet 325 mg PO BID PRNRF: 0 digoxin [Digox] 125 mcg Tablet 125 mcg PO DAILY RF: 0 Changed Eliquis 5 mg Tablet 5 mg PO BID Qty: 0 RF: 0 Discontinued cranberry 500 mg Capsule 2 tab/day PO BID RF: 0 cephalexin 500 mg tablet 500 mg PO BID Qty: 13 RF: 0 Discharge Instructions Instructions: ORIF of Hip Fracture (DC) Activity:: Activity as Tolerated Equipment/Supplies:: No Equipment Needed Diet:: Heart healthy Discharge Orders Discharge Orders: Discharge Order (Routine); Ordered 05/23/19 Ordered By: Jaycee Fraser Exam Narrative Exam Narrative: General: Elderly female, sitting in recliner with feet elevated, awake and alert, not oriented. She does not appear to be in any distress. Speaking nonsensically with word salad. HEENT: normocephalic, small mildly erythematous area on left cheek, does not appear tender on palpation, not warm to touch. Pupils equal and round, mucous membranes moist. Neck: supple, no JVD. Cardiovascular: Irregularly irregular, nontachycardic, no murmur. Respiratory: respirations even and unlabored, lungs clear bilaterally. GI: normoactive bowel sounds, abdomen soft, nontender on palpation. Extremities: LLE with surgical dressing intact, tenderness on palpation of left thigh, no significant edema, no erythema. Pedal pulses palpable bilaterally. DS: Data Vitals/I&O Vitals and I&O: Vital Signs Temperature 36.6 C 05/23/19 10:14 Temperature Source Tympanic 05/23/19 10:14 Pulse 60 05/23/19 10:14 Pulse Rhythm Irregular 05/23/19 07:35 Pulse 89 05/19/19 03:20 Respiratory Rate 15 05/23/19 10:14 Respiratory Effort Non-Labored 05/23/19 07:35 Respiratory Depth Normal 05/23/19 07:35 Respiratory Pattern Normal 05/23/19 07:35 Blood Pressure 120/69 05/23/19 10:14 Blood Pressure Mean 110 05/19/19 02:49 Pulse Oximetry 97 05/23/19 10:14 Respiratory End-tidal CO2 23 05/20/19 14:24 Oxygen Delivery Method Room Air 05/23/19 10:14 Oxygen Flow Rate 0 05/23/19 10:14 Pain Level 0 05/23/19 03:34 Comment 05/23/19 11:01 Intake & Output 05/22/19 05/23/19 05/23/19 23:59 11:59 23:59 Intake Total 490 / 490 Output Total 150 / 150 Balance 340 / 340 Weight 61.4 kg Intake: Oral 490 / 490 Output: Urine 150 / 150 Other: Urine Color Yellow Straw Urine Appearance Clear Urine Odor None None Comment unmeasurable due to pt incontinece mixed w BM Stool Size Small Stool Characteristics Hard Brown Voiding Methods Diaper Toilet Incontinent Completed studies during hospitalization [Text1]: 05/19/19: SUPINE CHEST: Comparison is made with 10 Aug 2018. The heart is grossly enlarged. A valve prosthesis is again noted. The lungs show fibrotic changes. There is no gross evidence of pneumothorax. IMPRESSION: No acute abnormality. Cardiomegaly. PELVIS AND LEFT HIP: Comparison is made with 25 June 2018 There is an intertrochanteric fracture of the left femur which is nondisplaced. There are old right superior and inferior pubic ramus fractures. There is spurring from both acetabula. The hip joint spaces are well maintained. The SI joints are not widened. There are degenerative changes of the lower lumbar spine. IMPRESSION: Intertrochanteric fracture of the left femur. CT PELVIS: Comparison is made with plain film performed earlier the same day There is an acute intertrochanteric fracture of the left femur which is nondisplaced No additional acute fractures are seen. The bones appear osteoporotic. There are old healed fractures of the right superior and inferior pubic rami. Severe degenerative changes are seen in the lower lumbar spine. IMPRESSION: Nondisplaced intertrochanteric fracture of the left femur. CAROTID ULTRASOUND: The exam was limited due to lack of patient cooperation. Plaque is seen in the common carotid bulbs bilaterally. The velocity measurements in the internal carotid arteries are in the normal range. No significant stenosis is visible. The vertebral arteries show antegrade flow. IMPRESSION: No significant internal carotid artery stenosis. Date of study: 05/19/2019 Transthoracic Echocardiography M-mode, complete 2D, complete spectral Doppler, and color Doppler *STUDY CONCLUSIONS* Summary: 1. Left ventricle: The cavity size was normal. Systolic function was hyperdynamic. The estimated ejection fraction was 65-70%. Findings consistent with diastolic dysfunction. Doppler parameters are consistent with high ventricular filling pressure. 2. Mitral valve: Severely calcified annulus. There was mild regurgitation. 3. Left atrium: The atrium was severely dilated. 4. Right ventricle: The cavity size was normal. Wall thickness was moderately increased. Systolic function was mildly reduced. 5. Right atrium: The atrium was moderately dilated. 6. Atrial septum: No defect or patent foramen ovale was identified. 7. Pulmonary arteries: Pulmonary systolic pressure was in the range of 25mm Hg to 35mm Hg. 8. Inferior vena cava: The vessel was patent and normal in size. The respirophasic diameter changes were in the normal range (greater than or equal to 50%), consistent with normal central venous pressure. 05/20/19: LEFT HIP IN OR: Fluoroscopy Time: 43.7 seconds Fluoroscopy was provided in the OR. Hard copy images show placement of a compression screw in the proximal femur for fracture fixation. The fracture remains nondisplaced. Please see procedure note for details. 05/23/19: LEFT HIP: Comparison is made with intraoperative images of 20 May 2019, A compression screw is in place in the proximal left femur for fixation of the previously noted intertrochanteric fracture. The fracture alignment appears anatomic. Skin rosa are seen Labs on day of discharge: Labs from last 24 hours 05/23/19 06:30 WBC 12.14 H RBC 5.41 H Hgb 15.5 Hct 47.5 H MCV 87.8 MCH 28.7 MCHC 32.6 RDW 14.4 Plt Count 183 MPV 11.6 H PFSH Medical History MVP (mitral valve prolapse) (Acute) Atrial fibrillation (Chronic) CHF (congestive heart failure) (Chronic) CVA (cerebral vascular accident) (Chronic) Depression (Chronic) Surgical History H/O mitral valve repair (Acute) History of bladder surgery (Acute) History of hysterectomy (Chronic) History of knee replacement (Chronic) Hx of cholecystectomy (Chronic) Social History Smoking/Tobacco Use Status: Never Alcohol Intake: never Drug use: Never Do you feel safe in your relationship?: Yes
--- NOTE | 2019-05-23 12:29 | CMDISCH_ITS ---
LACE Index Scoring Tool - Questions: Length of Stay (in days): 4 - 6 Acuity (Admit via E.D.?): Yes Comorbidities: Cerebrovascular Disease, Congestive Heart Failure, Dementia E.D. Visits: 7 - Answers: Total Score: 16 Risk of Readmission: High Risk Care Management Discharge Reason for Hospitalization: intertrochanteric fracture of left femur Discharge Plan: She is being transferred via [place] to [facility] for continued rehab services. Family has been notified and will meet her at [facility] this afternoon. Patient/Family Education Needs: RN to review d/c instructions re meds and activity levels with [facility] staff. Services Needed at Discharge: Occupational Therapy, Physical Therapy, [facility]
--- NOTE | 2019-05-23 12:50 | W.PM.PROGNOT ---
Date of Service Date of service: 05/23/19 Time of Service: 10:50 Assessment and Plan (1) Intertrochanteric fracture of left femur: Current visit: Yes Status: Acute Inna is a 74-year-old status post left intertrochanteric hip fracture fixation with a sliding hip screw device. She is doing well. She still has significant dementia which limits her ability to obtain a more thorough history or examination. However, there are no signs of application. Repeat x-rays performed today after mobilization do not demonstrate any sign of failure. The fracture is otherwise well aligned. Hardware is in appropriate position. She is back on her Eliquis for DVT prophylaxis as well as for stroke prevention with A. fib. She has been able to mobilize with nursing. Therefore, I do think she is ready for discharge to a correction facility. She may weight-bear as tolerated. She is using assistive device for any mobilization. Gentle exercises as tolerated. I will see her back in 4 weeks. [facility] out in 2 weeks. Qualifiers: Encounter type: initial encounter Fracture type: closed Fracture alignment: nondisplaced Qualified Code(s): S72.145A - Nondisplaced intertrochanteric fracture of left femur, initial encounter for closed fracture Subjective Patient reports: no new complaints Interval history since last seen: Inna has been able to mobilize with physical therapy albeit limited. She is able to pivot stand and transfer with nursing. She does not complain of any pain in the left hip. She still is actively confused and demented. No acute issues with her vital signs. Pain seems to be controlled with the use of tramadol, Tylenol, ibuprofen. Exam Narrative Exam Narrative: Evaluation of the left hip shows a clean dry and intact dressing. Per nursing it was removed by the patient yesterday and was replaced. No surrounding erythema. Minimal ecchymosis. The thigh is soft and compressible. She tolerates internal and external rotation without any significant pain. She is able to dorsiflex and plantarflex ankle as well as extend and flex the great toe. She endorses full sensation over the deep and superficial peroneal nerves and tibial nerve, however, unclear on this testing reliability. Objective Objective Clinical Data: Abnormal lab results 05/23/19 Range/Units 06:30 WBC 12.14 H (4.4-10.8) k/cumm RBC 5.41 H (4.00-5.20) m/cumm Hct 47.5 H (36.0-46.0) % MPV 11.6 H (8.0-11.0) fL Vital Signs Temperature 36.6 C 05/23/19 10:14 Temperature Source Tympanic 05/23/19 10:14 Pulse 60 05/23/19 10:14 Pulse Rhythm Irregular 05/23/19 07:35 Pulse 89 05/19/19 03:20 Respiratory Rate 15 05/23/19 10:14 Respiratory Effort Non-Labored 05/23/19 07:35 Respiratory Depth Normal 05/23/19 07:35 Respiratory Pattern Normal 05/23/19 07:35 Blood Pressure 120/69 05/23/19 10:14 Blood Pressure Mean 110 05/19/19 02:49 Pulse Oximetry 97 05/23/19 10:14 Respiratory End-tidal CO2 23 05/20/19 14:24 Oxygen Delivery Method Room Air 05/23/19 10:14 Oxygen Flow Rate 0 05/23/19 10:14 Pain Level 0 05/23/19 03:34 Comment 05/23/19 11:01 Intake & Output 05/22/19 05/23/19 05/23/19 23:59 11:59 23:59 Intake Total 490 / 490 Output Total 150 / 150 Balance 340 / 340 Weight 61.4 kg Intake: Oral 490 / 490 Output: Urine 150 / 150 Other: Urine Color Yellow Straw Urine Appearance Clear Urine Odor None None Comment unmeasurable due to pt incontinece mixed w BM Stool Size Small Stool Characteristics Hard Brown Voiding Methods Diaper Toilet Incontinent Laboratory Results WBC 12.14 k/cumm (4.4-10.8) H 05/23/19 06:30 RBC 5.41 m/cumm (4.00-5.20) H 05/23/19 06:30 Hgb 15.5 g/dL (12.0-15.5) 05/23/19 06:30 Hct 47.5 % (36.0-46.0) H 05/23/19 06:30 MCV 87.8 fL (80-95) 05/23/19 06:30 MCH 28.7 pg (27.0-33.0) 05/23/19 06:30 MCHC 32.6 g/dL (32.0-36.0) 05/23/19 06:30 RDW 14.4 % (11.7-14.6) 05/23/19 06:30 Plt Count 183 x1000/uL (130-400) 05/23/19 06:30 MPV 11.6 fL (8.0-11.0) H 05/23/19 06:30 Immature Gran % 0.4 05/19/19 00:55 Neutrophils % 73.8 05/19/19 00:55 Lymphocytes % 19.5 05/19/19 00:55 Monocytes % 4.4 05/19/19 00:55 Eosinophils % 1.5 05/19/19 00:55 Basophils % 0.4 05/19/19 00:55 Absolute Neutrophils 9.37 k/cumm (1.2-6.7) H 05/19/19 00:55 Absolute Lymphocytes 2.48 k/cumm (1.2-3.4) 05/19/19 00:55 Absolute Monocytes 0.56 k/cumm (0.11-0.7) 05/19/19 00:55 Absolute Eosinophils 0.19 k/cumm (0.0-0.7) 05/19/19 00:55 Absolute Basophils 0.05 k/cumm (0.0-0.2) 05/19/19 00:55 PT 10.8 sec (9.3-11.0) 05/19/19 06:36 INR 1.1 (0.9-1.1) 05/19/19 06:36 Sodium 140 mmol/L (136-145) 05/21/19 06:45 Potassium 3.8 mmol/L (3.5-5.1) 05/21/19 06:45 Chloride 105 mmol/L (98-107) 05/21/19 06:45 Carbon Dioxide 23.9 mmol/L (21.0-32.0) 05/21/19 06:45 Anion Gap 11.1 mmol/L (3-11) H 05/21/19 06:45 BUN 23 mg/dL (7-18) H 05/21/19 06:45 Creatinine 0.99 mg/dL (0.55-1.02) 05/21/19 06:45 Estimated GFR/1.73 m2 54.54 (mL/min/1.73m2) 05/21/19 06:45 Glucose 121 mg/dL (70-100) H 05/21/19 06:45 Calcium 8.8 mg/dL (8.5-10.1) 05/21/19 06:45 Magnesium 1.9 mg/dL (1.8-2.4) 05/19/19 00:55 Total Bilirubin 0.8 mg/dL (0.2-1.0) 05/20/19 06:25 AST 19 U/L (15-37) 05/20/19 06:25 ALT 30 U/L (12-78) 05/20/19 06:25 Alkaline Phosphatase 97 U/L (46-116) 05/20/19 06:25 Troponin I < 0.05 ng/mL (0.00-0.06) 05/19/19 11:00 Total Protein 6.6 g/dL (6.4-8.2) 05/20/19 06:25 Albumin 3.0 g/dL (3.4-5.0) L 05/20/19 06:25 TSH 3.27 uIU/mL (0.358-3.74) 05/19/19 08:10 Urine Color Yellow (Yellow) 05/19/19 06:40 Urine Clarity Clear (Clear) 05/19/19 06:40 Urine pH 8.5 (5-8) H 05/19/19 06:40 Ur Specific B[place]orn 1.020 (1.005-1.025) 05/19/19 06:40 Urine Protein Trace mg/dL (Negative) H 05/19/19 06:40 Urine Ketones Negative mg/dL (Negative) 05/19/19 06:40 Urine Blood Trace-intact (Negative) H 05/19/19 06:40 Urine Nitrite Negative (Negative) 05/19/19 06:40 Urine Bilirubin Negative (Negative) 05/19/19 06:40 Urine Urobilinogen 0.2 EU/dL (Up TO 0.2) 05/19/19 06:40 Ur Leukocyte Esterase Negative (Negative) 05/19/19 06:40 Urine RBC 3-5 (0-2) H 05/19/19 06:40 Urine WBC 0-2 HPF (0-5) 05/19/19 06:40 Ur Epithelial Cells Moderate HPF (Negative) 07/01/19 06:40 Urine Crystals Negative HPF (Negative) 05/19/19 06:40 Urine Bacteria Few HPF (Negative) 05/19/19 06:40 Urine Casts Negative LPF (Negative) 05/19/19 06:40 Urine Mucus Trace (Negative) 05/19/19 06:40 Urine Other Rare renal (Negative) 05/19/19 06:40 Ur Culture Indicated? No 05/19/19 06:40 Urine Glucose Negative mg/dL (Negative) 05/19/19 06:40 Digoxin 0.80 ng/mL (0.90-2.00) L 05/19/19 00:55 Patient ABO/Rh A Positive 05/19/19 07:00 Antibody Screen Negative 05/19/19 07:00
--- NOTE | 2019-05-23 13:02 | PT.INDS ---
Date of service: 05/23/19 PT Notes Inpatient Physical Therapy Discharge Summary Dates: 05/23/2019 Dates of Service: 05/21/2019 through 05/23/2019 Referring Doctor: Sam Mcclendon MD PT Orders: PT CONSULT: Status post compression left IT fracture Precautions: Fall. Standard. Impaired safety awareness. WBAT on L LE. Patient Profile/Admitting Diagnosis: Patient is a 74-year-old female with past medical history significant for CVA, atrial fibrillation, CHF, and dementia who sustained a closed intertrochanteric fracture of left hip due to an unwitnessed fall at home. Patient is status post ORIF of left hip using compression hip screw. PMHX: Medical History MVP (mitral valve prolapse) (Acute) Atrial fibrillation (Chronic) CHF (congestive heart failure) (Chronic) CVA (cerebral vascular accident) (Chronic) Depression (Chronic) Surgical History H/O mitral valve repair (Acute) History of bladder surgery (Acute) History of hysterectomy (Chronic) History of knee replacement (Chronic) Hx of cholecystectomy (Chronic) Social History/Home Situation: Patient has dementia and is a poor historian. PT is unable to extract information on home situation/social history at this time. 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 Current Functional Limitations: Need for assistance for all bed mobility, transfer, and ambulation task performed Equipment Owned/DME: PT is unable to extract information on equipment owned/DME at this time Subjective: Patient appeared to be perkier today with anxiety over moving and standing up apparently much more decreased with coordination of PT sessions with pain medication intake. She tends to anticipates pain more but when guided through to initate movement, is surprised at how much she is able to do without really hurting Objective: General Observation: Mepilex Ag on hip over hip surgical incision. Booker catheter now discharged. Mental Status: Alert only. Not oriented as to place and time. Cotninues to require maximal, visual, and tactile cueing for all bed mobility tasks. Pain: Mild to moderate pain on L LE with movement and weight-bearing Vital Signs: Oxygen saturation stayed above 95% on room air during bed mobility task performance ROM: Right Upper Extremity: Shoulder Flexion WFL. Shoulder abduction WFL. Elbow flexion WFL. Wrist flexion WFL. Functional opening and closing of hand WFL. Left Upper Extremity: Shoulder Flexion WFL. Shoulder abduction WFL. Elbow flexion WFL. Wrist flexion WFL. Functional opening and closing of hand WFL. Right Lower Extremity: Hip flexion WFL. Hip abduction WFL. Knee flexion WFL. Ankle dorsiflexion WFL. Ankle plantarflexion WFL. Left Lower Extremity: Patient was able to sitting at edge of bed allowing left hip and knee flexion. Patient required assistance with sliding hip sideways to about 30 to 40 degrees hip abduction WFL Patient was able to assume supine to sit allowing passive full left knee extension. Ankle dorsiflexion WFL. Ankle plantarflexion WFL. Strength: Right Upper Extremity: Shoulder flexors 4-/5. Shoulder abductors 4-/5. Elbow flexors 4/5. Elbow extensors 4-/5. [employer] strong. Left Upper Extremity: Shoulder flexors 4-/5. Shoulder abductors 4-/5. Elbow flexors 4/5. Elbow extensors 4-/5. [employer] strong. Right Lower Extremity: Hip flexors 4-/5. Hip abductors 4-/5. Knee flexors 3+/5. Knee extensors 3+/5. Ankle dorsiflexors 4/5. Ankle plantarflexors 4/5. Left Lower Extremity:Hip flexors 3-/5. Hip abductors 3-/5. Knee flexors 3-/5. Knee extensors 3+/5. Ankle dorsiflexors 4/5. Ankle plantarflexors 4/5. Sensation: Patient is able to points to the location of the pain on the mid and distal left lateral thigh Bed Mobility/Transfers: Rolling moderate assist of 2 Supine to sit moderate assist of 2 Sit to supine moderate assist of 2 Sit to stand moderate assist of 2 Stand to sit moderate assist of 2 Bed to chair moderate assist of 2 Chair to bed moderate assist of 2 Gait: Patient tolerated 15 feet x 2 of level surface ambulation requiring one seated rest with moderate assist of 2 Balance: Static Sitting: Poor Dynamic Sitting: Poor Static Standing: Unable to test Dynamic Standing: Unable to test Special Tests: Mobility Limitations Standardized Measure [facility] 6 clicks Basic Mobility Inpatient Short Form: Raw Score: 8 CMS Score: 87% deficit Informed Consent/Education: Attempted to instruct patient in purpose of PT consult and plan of care. Assessment: 74-year-old female with non-displaced closed intertrochanteric fracture of left hip status post ORIF. Patient continues to present with clinical signs and symptoms consistent with current/admitting diagnoses that have resulted to mobility limitations, gait instability, generalized weakness, and impairment of motor control as demonstrated by the following impairment level findings: 1. Decreased strength to B LE major muscle groups 2. Impaired sitting/standing balance 3. Impaired activity tolerance 4. Limitation of joint range of motion in right hip and knee Impairments are contributing to the following functional limitations: 1. Dependent bed mobility skills 2. Increased dependence with transfers 3. Inability to safely ambulate without assistive device and physical assistance 4. Increase completion time for mobility ADL performance 5. Increased fall risk 6. Inability to negotiate steps alone safely Goals: Goals X1 week 1. Supine-Sit minimal assist NOT MET 2. Sit-Supine minimal assist NOT MET 3. Sit-Stand minimal assist NOT MET 4. Stand-Sit minimal assist NOT MET 5. Bed-Chair minimal assist NOT MET 6. Chair-Bed minimal assist NOT MET 7. Independent gait on level surface with use of least restrictive device for at least 100 feet without report of pain nor dyspnea NOT MET 8. Independent stair negotiation while holding onto bilateral rails for at least 5 from steps without report of pain nor dyspnea NOT MET 9. Minimal assist with home exercise program NOT MET 10. Good static and dynamic standing balance/tolerance NOT MET DISCHARGE RECOMMENDATIONS: Patient transfers to a longterm facility placement today in order to progress mobility level, strength, and balance in preparation for a safe discharge to home. TREATMENT CODE/TIME: Session 1 for 25 minutes beginning at 8:56 am, session 2 for 11 minutes beginning at 10:06 am, and session three for 16 minutes beginning at 11:05 am. Thank you very much for this referral. Stacey Allred PT, DPT, CLT [facility]
--- NOTE | 2019-05-23 13:11 | INDS_ITS ---
Date of service: 05/23/19 PT Notes Inpatient Physical Therapy Discharge Summary Dates: 05/23/2019 Dates of Service: 05/21/2019 through 05/23/2019 Referring Doctor: Sam Mcclendon MD PT Orders: PT CONSULT: Status post compression left IT fracture Precautions: Fall. Standard. Impaired safety awareness. WBAT on L LE. Patient Profile/Admitting Diagnosis: Patient is a 74-year-old female with past medical history significant for CVA, atrial fibrillation, CHF, and dementia who sustained a closed intertrochanteric fracture of left hip due to an unwitnessed fall at home. Patient is status post ORIF of left hip using compression hip screw. PMHX: Medical History MVP (mitral valve prolapse) (Acute) Atrial fibrillation (Chronic) CHF (congestive heart failure) (Chronic) CVA (cerebral vascular accident) (Chronic) Depression (Chronic) Surgical History H/O mitral valve repair (Acute) History of bladder surgery (Acute) History of hysterectomy (Chronic) History of knee replacement (Chronic) Hx of cholecystectomy (Chronic) Social History/Home Situation: Patient has dementia and is a poor historian. PT is unable to extract information on home situation/social history at this time. network project manager is unable to reach family at this time for information/consultation. Current Functional Limitations: Need for assistance for all bed mobility, transfer, and ambulation task performed Equipment Owned/DME: PT is unable to extract information on equipment owned/DME at this time Subjective: Patient appeared to be perkier today with anxiety over moving and standing up apparently much more decreased with coordination of PT sessions with pain medication intake. She tends to anticipates pain more but when guided through to initate movement, is surprised at how much she is able to do without really hurting Objective: General Observation: Mepilex Ag on hip over hip surgical incision. Booker catheter now discharged. Mental Status: Alert only. Not oriented as to place and time. Cotninues to require maximal, visual, and tactile cueing for all bed mobility tasks. Pain: Mild to moderate pain on L LE with movement and weight-bearing Vital Signs: Oxygen saturation stayed above 95% on room air during bed mobility task performance ROM: Right Upper Extremity: Shoulder Flexion WFL. Shoulder abduction WFL. Elbow flexion WFL. Wrist flexion WFL. Functional opening and closing of hand WFL. Left Upper Extremity: Shoulder Flexion WFL. Shoulder abduction WFL. Elbow flexion WFL. Wrist flexion WFL. Functional opening and closing of hand WFL. Right Lower Extremity: Hip flexion WFL. Hip abduction WFL. Knee flexion WFL. Ankle dorsiflexion WFL. Ankle plantarflexion WFL. Left Lower Extremity: Patient was able to sitting at edge of bed allowing left hip and knee flexion. Patient required assistance with sliding hip sideways to about 30 to 40 degrees hip abduction WFL Patient was able to assume supine to sit allowing passive full left knee extension. Ankle dorsiflexion WFL. Ankle plantarflexion WFL. Strength: Right Upper Extremity: Shoulder flexors 4-/5. Shoulder abductors 4-/5. Elbow flexors 4/5. Elbow extensors 4-/5. Graduate Advisor strong. Left Upper Extremity: Shoulder flexors 4-/5. Shoulder abductors 4-/5. Elbow f lexors 4/5. Elbow extensors 4-/5. Graduate Advisor strong. Right Lower Extremity: Hip flexors 4-/5. Hip abductors 4-/5. Knee flexors 3+/5. Knee extensors 3+/5. Ankle dorsiflexors 4/5. Ankle plantarflexors 4/5. Left Lower Extremity:Hip flexors 3-/5. Hip abductors 3-/5. Knee flexors 3-/5. Knee extensors 3+/5. Ankle dorsiflexors 4/5. Ankle plantarflexors 4/5. Sensation: Patient is able to points to the location of the pain on the mid and distal left lateral thigh Bed Mobility/Transfers: Rolling moderate assist of 2 Supine to sit moderate assist of 2 Sit to supine moderate assist of 2 Sit to stand moderate assist of 2 Stand to sit moderate assist of 2 Bed to chair moderate assist of 2 Chair to bed moderate assist of 2 Gait: Patient tolerated 15 feet x 2 of level surface ambulation requiring one seated rest with moderate assist of 2 Balance: Static Sitting: Poor Dynamic Sitting: Poor Static Standing: Unable to test Dynamic Standing: Unable to test Special Tests: Mobility Limitations Standardized Measure [facility] 6 clicks Basic Mobility Inpatient Short Form: Raw Score: 8 CMS Score: 87% deficit Informed Consent/Education: Attempted to instruct patient in purpose of PT consult and plan of care. Assessment: 74-year-old female with non-displaced closed intertrochanteric fracture of left hip status post ORIF. Patient continues to present with clin ical signs and symptoms consistent with current/admitting diagnoses that have resulted to mobility limitations, gait instability, generalized weakness, and impairment of motor control as demonstrated by the following impairment level findings: 1. Decreased strength to B LE major muscle groups 2. Impaired sitting/standing balance 3. Impaired activity tolerance 4. Limitation of joint range of motion in right hip and knee Impairments are contributing to the following functional limitations: 1. Dependent bed mobility skills 2. Increased dependence with transfers 3. Inability to safely ambulate without assistive device and physical assistance 4. Increase completion time for mobility ADL performance 5. Increased fall risk 6. Inability to negotiate steps alone safely Goals: Goals X1 week 1. Supine-Sit minimal assist NOT MET 2. Sit-Supine minimal assist NOT MET 3. Sit-Stand minimal assist NOT MET 4. Stand-Sit minimal assist NOT MET 5. Bed-Chair minimal assist NOT MET 6. Chair-Bed minimal assist NOT MET 7. Independent gait on level surface with use of least restrictive device for at least 100 feet without report of pain nor dyspnea NOT MET 8. Independent stair negotiation while holding onto bilateral rails for at least 5 from steps without report of pain nor dyspnea NOT MET 9. Minimal assist with home exercise program NOT MET 10. Good static and dynamic standing balance/tolerance NOT MET DISCHARGE RECOMMENDATIONS: Patient transfers to a correction facility placement today in order to progress mobility level, strength, and balance in preparation for a safe discharge to home. TREATMENT CODE/TIME: Session 1 for 25 minutes beginning at 8:56 am, session 2 for 11 minutes beginning at 10:06 am, and session three for 16 minutes beginning at 11:05 am. Thank you very much for this referral. Stacey Allred PT, DPT, CLT [facility]
== END 2019-05-23 13:25 | disposition skilled nursing facility (03) | DRG 481 ==
LOC: ER 03:01 → MS 04:45
PROVIDERS: Nurse Practitioner; Student in an Organized Health Care Education/Training Program; Admitting Provider Family Medicine; Emergency Provider Physician Assistant; PCP Family Medicine; Visit Provider Internal Medicine
PROC: 0QS704Z Reposition Left Upper Femur with Internal Fixation Device, Open Approach (ICD-10-PCS; CPT 27244; principal; 2019-05-20 14:30)
DX: S72.145A Nondisplaced intertrochanteric fracture of left femur, initial encounter for closed fracture (principal); F03.91 Unspecified dementia, unspecified severity, with behavioral disturbance; I42.9 Cardiomyopathy, unspecified; W19.XXXA Unspecified fall, initial encounter; Y92.009 Unspecified place in unspecified non-institutional (private) residence as the place of occurrence of the external cause; I48.2 Chronic atrial fibrillation; Z79.01 Long term (current) use of anticoagulants; I51.7 Cardiomegaly; I34.0 Nonrheumatic mitral (valve) insufficiency; I69.320 Aphasia following cerebral infarction; Z51.5 Encounter for palliative care
CPT/HCPCS: 27244; 36415; 36416; 80048; 80053; 82962; 85027; 86850; 86900; 86901; 93005; 93306; 96374; 96375; 97110; 97163; 97530; 99223; 99232; 99239; 99252; 99253; 99285; NC; 71045; 72192; 73501; 73502; 80162; 81003; 81015; 83735; 84443; 84484; 85025; 85610; 93010; 93880; J0690; J1100; J2060; J2370; J2405; J3010

== ENCOUNTER 2019-06-29 19:08 | Outpatient (REF) | payer MEDICARE, SELFPAY ==
[2019-06-29 19:32] LABS: Bilirubin Negative (Negative); Blood Small (Negative); Clarity Cloudy (Clear); Glucose Negative (Negative); Ketones Negative (Negative); Leukocyte Esterase Small (Negative); Nitrite Positive (Negative); Specific Gravity 1.025 (1.005-1.025); Urobilinogen 0.2 EU/dL (Up TO 0.2); pH 5.5 (5-8)
[2019-06-29 19:45] LABS: Epithelial Cells Few HPF (Negative)
[2019-06-29 19:46] LABS: Bacteria Many HPF (Negative); C & S Indicated? C&S Done As Ordered; Casts Negative LPF (Negative); Crystals Few Calcium Oxalate HPF (Negative); Mucus Negative (Negative); Other Cells Negative (Negative)
== END 2019-06-29 19:28 ==
LOC: LBN 19:08
PROVIDERS: PCP Family Medicine; Visit Provider Family Medicine
DX: R35.0 Frequency of micturition (principal)
CPT/HCPCS: 87077; 81003; 81015; 87086; 87186

== ENCOUNTER 2019-07-16 11:31 | Outpatient (CLI) | payer MEDICARE, SELFPAY ==
--- NOTE | 2019-07-16 10:35 | DI.RAD_ITS ---
SYMPTOMS/DIAGNOSIS; F/U LT HIP ORIF PELVIS AND LEFT HIP: Comparison 06/20/19. There has been no change in alignment of the sideplate and screws transfixing the intertrochanteric fracture of the left femur. The hardware and fracture components appear stable. Old healed right pubic bone fractures are noted. The soft tissues are unremarkable.
== END 2019-07-16 11:51 ==
PROVIDERS: PCP Family Medicine; Visit Provider Student in an Organized Health Care Education/Training Program
DX: S72.145D Nondisplaced intertrochanteric fracture of left femur, subsequent encounter for closed fracture with routine healing (principal); X58.XXXD Exposure to other specified factors, subsequent encounter
CPT/HCPCS: 73502

== ENCOUNTER 2019-09-13 19:58 | Outpatient (REF) | payer MEDICARE, SELFPAY ==
[2019-09-13 20:27] LABS: Bilirubin Negative (Negative); Blood Trace-intact (Negative); Clarity Sl Cloudy (Clear); Glucose Negative (Negative); Ketones Negative (Negative); Leukocyte Esterase Negative (Negative); Nitrite Positive (Negative); Specific Gravity <= 1.005 (1.005-1.025); Urobilinogen 0.2 EU/dL (Up TO 0.2)
[2019-09-13 20:34] LABS: Bacteria Many HPF (Negative); C & S Indicated? C&S Done As Ordered; Casts Negative LPF (Negative); Crystals Negative HPF (Negative); Epithelial Cells Negative HPF (Negative); Mucus Negative (Negative); Other Cells Negative (Negative); RBC Negative (0-2)
== END 2019-09-13 20:18 ==
LOC: LBN 19:58
PROVIDERS: PCP Family Medicine; Visit Provider Family Medicine
DX: F03.91 Unspecified dementia, unspecified severity, with behavioral disturbance (principal)
CPT/HCPCS: 87077; 81003; 81015; 87086; 87186

== ENCOUNTER 2019-09-16 10:20 | Outpatient (CLI) | payer MEDICARE, SELFPAY ==
[2019-09-16 11:29] LABS: HCT 50.9 % (36.0-46.0); HGB 16.2 g/dL (12.0-15.5); Mean Corp. HGB Concentration 31.8 g/dL (32.0-36.0); Mean Corpuscular Volume 84.7 fL (80-95); Mean Platelet Volume 11.1 fL (8.0-11.0); Platelet Count 246 x1000/uL (130-400); RBC 6.01 m/cumm (4.00-5.20); RBC Distribution Width 15.7 % (11.7-14.6); White Blood Cell Count 10.13 k/cumm (4.4-10.8)
[2019-09-16 11:55] LABS: ALT 23 U/L (14-59); AST 13 U/L (15-37); Albumin 3.5 g/dL (3.4-5.0); Alkaline Phosphatase 112 U/L (46-116); Anion Gap 11.2 mmol/L (3-11); BUN 15 mg/dL (7-18); Bilirubin, Total 0.5 mg/dL (0.2-1.0); CO2 27.8 mmol/L (21.0-32.0); CREATININE 0.77 mg/dL (0.55-1.02); Calcium 9.1 mg/dL (8.5-10.1); Chloride 105 mmol/L (98-107); Digoxin 0.74 ng/mL (0.90-2.00); Glucose 136 mg/dL (70-100); Potassium 3.7 mmol/L (3.5-5.1); Sodium 144 mmol/L (136-145); Total Protein 6.6 g/dL (6.4-8.2)
== END 2019-09-16 10:40 ==
PROVIDERS: PCP Family Medicine; Visit Provider Nurse Practitioner Adult Health
DX: I48.91 Unspecified atrial fibrillation (principal); I42.9 Cardiomyopathy, unspecified; I63.412 Cerebral infarction due to embolism of left middle cerebral artery
CPT/HCPCS: 36415; 80053; 85027; 80162

== ENCOUNTER 2019-10-14 12:31 | Outpatient (CLI) | payer MEDICARE, SELFPAY ==
[2019-10-14 14:32] LABS: Anion Gap 11.1 mmol/L (3-11); BUN 19 mg/dL (7-18); CO2 25.9 mmol/L (21.0-32.0); CREATININE 0.79 mg/dL (0.55-1.02); Calcium 9.3 mg/dL (8.5-10.1); Chloride 105 mmol/L (98-107); Glucose 116 mg/dL (74-106); Magnesium 2.1 mg/dL (1.8-2.4); Potassium 4.2 mmol/L (3.5-5.1); Sodium 142 mmol/L (136-145)
== END 2019-10-14 12:51 ==
PROVIDERS: PCP Family Medicine; Visit Provider Nurse Practitioner Adult Health
DX: I42.9 Cardiomyopathy, unspecified (principal); E83.42 Hypomagnesemia
CPT/HCPCS: 36415; 80048; 83735

== ENCOUNTER 2019-12-17 07:54 | Outpatient (REF) | payer MEDICARE, SELFPAY ==
[2019-12-17 11:10] LABS: Bilirubin Negative (Negative); Blood Moderate (Negative); Clarity Sl Cloudy (Clear); Glucose Negative (Negative); Ketones Negative (Negative); Leukocyte Esterase Negative (Negative); Nitrite Negative (Negative); Specific Gravity 1.025 (1.005-1.025); Urobilinogen 0.2 EU/dL (Up TO 0.2); pH 5.5 (5-8)
[2019-12-17 11:27] LABS: Epithelial Cells Few HPF (Negative)
[2019-12-17 11:28] LABS: Bacteria Many HPF (Negative); C & S Indicated? C&S Done As Ordered; Casts 5-10 Hyaline LPF (Negative); Crystals Negative HPF (Negative); Mucus Trace (Negative); Other Cells Rare Transitional (Negative)
== END 2019-12-17 08:14 ==
LOC: LBN 07:54
PROVIDERS: PCP Family Medicine; Visit Provider Nurse Practitioner Adult Health
DX: R50.9 Fever, unspecified (principal); R11.0 Nausea
CPT/HCPCS: 87077; 81003; 81015; 87086; 87186

== ENCOUNTER 2019-12-17 12:04 | Outpatient (REF) | payer MEDICARE, SELFPAY ==
[2019-12-17 14:14] LABS: Abs Immature Grans 0.02 k/cumm (0.0-0.09); Absolute Basophil Count 0.03 k/cumm (0.0-0.2); Absolute Eosinophil Count 0.01 k/cumm (0.0-0.7); Absolute Monocyte Count 0.38 k/cumm (0.11-0.7); Absolute Neutrophil Count 7.65 k/cumm (1.2-6.7); Basophils % 0.3; Eosinophils % 0.1; HCT 51.1 % (36.0-46.0); HGB 16.8 g/dL (12.0-15.5); Immature Grans % 0.2 %; Mean Corp. HGB Concentration 32.9 g/dL (32.0-36.0); Mean Corpuscular Hemoglobin 28.1 pg (27.0-33.0); Mean Corpuscular Volume 85.6 fL (80-95); Mean Platelet Volume 11.2 fL (8.0-11.0); Monocytes % 4.3; Neutrophils % 86.1; Platelet Count 206 x1000/uL (130-400); RBC 5.97 m/cumm (4.00-5.20); RBC Distribution Width 14.7 % (11.7-14.6); White Blood Cell Count 8.89 k/cumm (4.4-10.8)
== END 2019-12-17 12:24 ==
LOC: LBN 12:04
PROVIDERS: PCP Family Medicine; Visit Provider Family Medicine
DX: R50.9 Fever, unspecified (principal)
CPT/HCPCS: 85025

== ENCOUNTER 2020-03-24 16:49 | Outpatient (REF) | payer MEDICARE, SELFPAY ==
[2020-03-24 18:42] LABS: BUN 18 mg/dL (7-18); CREATININE 0.91 mg/dL (0.55-1.02); Calcium 8.5 mg/dL (8.5-10.1); Chloride 102 mmol/L (98-107); Digoxin 0.85 ng/mL (0.90-2.00); Estimated GFR 59.94 (mL/min/1.73m2); Glucose 74 mg/dL (74-106); Potassium 4.1 mmol/L (3.5-5.1); Sodium 139 mmol/L (136-145)
== END 2020-03-24 17:09 ==
LOC: LBN 16:49
PROVIDERS: PCP Family Medicine; Visit Provider Nurse Practitioner Adult Health
DX: I48.91 Unspecified atrial fibrillation (principal); Z51.81 Encounter for therapeutic drug level monitoring; E78.5 Hyperlipidemia, unspecified; F03.91 Unspecified dementia, unspecified severity, with behavioral disturbance
CPT/HCPCS: 80048; 80162

== ENCOUNTER 2020-04-03 22:15 | Outpatient (REF) | payer MEDICARE, SELFPAY ==
[2020-04-03 18:21] LABS: Bilirubin Negative (Negative); Blood Trace-intact (Negative); Clarity Sl Cloudy (Clear); Glucose Negative (Negative); Ketones Negative (Negative); Leukocyte Esterase Negative (Negative); Nitrite Negative (Negative); Specific Gravity >= 1.030 (1.005-1.025); Urobilinogen 0.2 EU/dL (Up TO 0.2); pH 5.5 (5-8)
[2020-04-03 18:47] LABS: Bacteria Many HPF (Negative); C & S Indicated? C&S Done As Ordered; Crystals Negative HPF (Negative); Epithelial Cells Many HPF (Negative); Mucus Negative (Negative); RBC 0-2 HPF (0-2)
== END 2020-04-03 22:35 ==
LOC: LBN 22:15
PROVIDERS: PCP Family Medicine; Referring Provider Nurse Practitioner Adult Health; Visit Provider Family Medicine
DX: N39.0 Urinary tract infection, site not specified (principal)
CPT/HCPCS: 87077; 81003; 81015; 87086; 87186

== ENCOUNTER 2020-04-04 19:55 | Outpatient (REF) | payer MEDICARE, SELFPAY ==
[2020-04-04 20:12] LABS: Abs Immature Grans 0.02 k/cumm (0.0-0.09); Absolute Basophil Count 0.06 k/cumm (0.0-0.2); Absolute Lymphocyte Count 4.42 k/cumm (1.2-3.4); Absolute Monocyte Count 0.51 k/cumm (0.11-0.7); Absolute Neutrophil Count 6.18 k/cumm (1.2-6.7); Basophils % 0.5; Eosinophils % 2.6; HCT 48.5 % (36.0-46.0); HGB 16.6 g/dL (12.0-15.5); Immature Grans % 0.2 %; Lymphocytes % 38.5; Mean Corp. HGB Concentration 34.2 g/dL (32.0-36.0); Mean Corpuscular Hemoglobin 29.6 pg (27.0-33.0); Mean Corpuscular Volume 86.6 fL (80-95); Monocytes % 4.4; Neutrophils % 53.8; Platelet Count 261 x1000/uL (130-400); RBC Distribution Width 14.5 % (11.7-14.6); White Blood Cell Count 11.49 k/cumm (4.4-10.8)
[2020-04-04 20:33] LABS: ALT 23 U/L (14-59); AST 17 U/L (15-37); Albumin 3.6 g/dL (3.4-5.0); Alkaline Phosphatase 111 U/L (46-116); Anion Gap 4.1 mmol/L (3-11); BUN 22 mg/dL (7-18); Bilirubin, Total 0.4 mg/dL (0.2-1.0); CO2 23.9 mmol/L (21.0-32.0); CREATININE 0.91 mg/dL (0.55-1.02); Calcium 8.8 mg/dL (8.5-10.1); Chloride 104 mmol/L (98-107); Estimated GFR 59.94 (mL/min/1.73m2); Glucose 154 mg/dL (74-106); Potassium 3.9 mmol/L (3.5-5.1); Sodium 132 mmol/L (136-145); Total Protein 6.5 g/dL (6.4-8.2)
== END 2020-04-04 20:15 ==
LOC: LBN 19:55
PROVIDERS: PCP Family Medicine; Visit Provider Nurse Practitioner Adult Health
DX: F41.9 Anxiety disorder, unspecified (principal); F03.91 Unspecified dementia, unspecified severity, with behavioral disturbance
CPT/HCPCS: 80053; 85025

== ENCOUNTER 2020-05-07 20:50 | Outpatient (REF) | payer MEDICARE, SELFPAY | END 2020-05-07 21:10 | LOC: LBN 20:50 | PROVIDERS: PCP Family Medicine; Visit Provider Nurse Practitioner Adult Health | DX: R19.7 Diarrhea, unspecified (principal) | CPT/HCPCS: 87324 ==

== ENCOUNTER 2020-05-08 14:11 | Outpatient (REF) | payer MEDICARE, SELFPAY ==
[2020-05-09 17:39] LABS: COVID-19 RT-PCR Result Not Detected ((See Note))
== END 2020-05-08 14:31 ==
LOC: LBN 14:11
PROVIDERS: PCP Family Medicine; Visit Provider Family Medicine
DX: Z03.818 Encounter for observation for suspected exposure to other biological agents ruled out (principal)
CPT/HCPCS: U0003

== ENCOUNTER 2020-09-07 16:20 | Outpatient (REF) | payer MEDICARE, SELFPAY ==
[2020-09-09 08:21] LABS: COVID-19 RT-PCR Result Not Detected ((See Note))
== END 2020-09-07 16:40 ==
LOC: LBN 16:20
PROVIDERS: PCP Family Medicine; Visit Provider Nurse Practitioner Adult Health
DX: Z11.59 Encounter for screening for other viral diseases (principal)
CPT/HCPCS: U0003

== ENCOUNTER 2021-01-21 16:42 | Outpatient (REF) | payer MEDICARE, SELFPAY ==
[2021-01-21 18:55] LABS: VALPROIC ACID 60.3 ug/mL (50-100)
[2021-01-21 18:56] LABS: ALT 29 U/L (14-59); AST 13 U/L (15-37); Albumin 3.3 g/dL (3.4-5.0); Alkaline Phosphatase 135 U/L (46-116); Anion Gap 6.5 mmol/L (3-11); BUN 16 mg/dL (7-18); Bilirubin, Total 0.5 mg/dL (0.2-1.0); CO2 30.5 mmol/L (21.0-32.0); CREATININE 0.7 mg/dL (0.55-1.02); Calcium 8.9 mg/dL (8.5-10.1); Chloride 104 mmol/L (98-107); Glucose 89 mg/dL (74-106); Potassium 4.8 mmol/L (3.5-5.1); Sodium 141 mmol/L (136-145); Total Protein 6.5 g/dL (6.4-8.2)
== END 2021-01-21 16:43 | disposition home or self-care (01) ==
LOC: LBN 16:42
PROVIDERS: PCP Family Medicine; Visit Provider Family Medicine
DX: F03.91 Unspecified dementia, unspecified severity, with behavioral disturbance (principal); M62.81 Muscle weakness (generalized); I48.91 Unspecified atrial fibrillation; I50.30 Unspecified diastolic (congestive) heart failure
CPT/HCPCS: 80053; 80164

== ENCOUNTER 2021-05-19 15:29 | Outpatient (REF) | payer MEDICARE, SELFPAY ==
[2021-05-19 13:47] LABS: Abs Immature Grans 0.04 10^3/uL (0.0-0.06); Absolute Basophil Count 0.09 10^3/uL (0.0-0.2); Absolute Eosinophil Count 0.15 10^3/uL (0.0-0.7); Absolute Lymphocyte Count 3.02 10^3/uL (1.2-3.4); Absolute Monocyte Count 0.55 10^3/uL (0.1-0.8); Absolute Neutrophil Count 7.38 10^3/uL (1.2-6.7); Basophils % 0.8; Eosinophils % 1.3; HCT 51.9 % (36.0-46.0); HGB 16.7 g/dL (11.2-15.7); Immature Grans % 0.4; Lymphocytes % 26.9; MCHC 32.2 % (32.0-36.0); MCV 90.1 fL (80-95); Monocytes % 4.9; Neutrophils % 65.7; Nucleated RBC 0 %; Platelet Count 244 10^3/uL (130-400); RBC 5.76 10^6/uL (3.93-5.22); RDW 13.5 % (11.7-14.6); RDW-SD 44.2 fL; WBC 11.23 10^3/uL (4.4-10.8)
[2021-05-19 13:57] LABS: ALT 34 U/L (14-59); AST 14 U/L (15-37); Albumin 3.4 g/dL (3.4-5.0); Alkaline Phosphatase 115 U/L (46-116); Anion Gap 10.8 mmol/L (3-11); BUN 21 mg/dL (7-18); Bilirubin, Total 0.5 mg/dL (0.2-1.0); CO2 26.2 mmol/L (21.0-32.0); CREATININE 0.9 mg/dL (0.55-1.02); Chloride 107 mmol/L (98-107); Digoxin 0.67 ng/mL (0.90-2.00); Glucose 88 mg/dL (74-106); Potassium 4.1 mmol/L (3.5-5.1); Sodium 144 mmol/L (136-145); Total Protein 6.9 g/dL (6.4-8.2)
[2021-05-19 14:02] LABS: VALPROIC ACID 16.2 ug/mL (50-100)
[2021-05-19 22:48] LABS: Bilirubin Negative (Negative); Blood Small (Negative); Clarity Cloudy (Clear); Glucose Negative (Negative); Ketones Negative (Negative); Leukocyte Esterase Negative (Negative); Nitrite Positive (Negative); Specific Gravity >= 1.030 (1.005-1.025); Urobilinogen 0.2 EU/dL (Up TO 0.2); pH 5.5 (5-8)
[2021-05-19 22:55] LABS: Bacteria Many HPF (Negative); Epithelial Cells Many HPF (Negative); WBC 0-2 HPF (0-5)
[2021-05-19 22:56] LABS: C & S Indicated? C&S Done As Ordered; Crystals Many Amorphous HPF (Negative); Mucus Negative (Negative)
== END 2021-05-19 15:30 | disposition home or self-care (01) ==
LOC: LBN 15:29
PROVIDERS: PCP Family Medicine; Visit Provider Nurse Practitioner Family
DX: I50.30 Unspecified diastolic (congestive) heart failure (principal); F03.91 Unspecified dementia, unspecified severity, with behavioral disturbance; I48.91 Unspecified atrial fibrillation; Z95.2 Presence of prosthetic heart valve; F41.9 Anxiety disorder, unspecified; Z51.81 Encounter for therapeutic drug level monitoring; Z79.899 Other long term (current) drug therapy; R82.998 Other abnormal findings in urine
CPT/HCPCS: 80053; 87077; 80162; 80164; 81003; 81015; 85025; 87086; 87186

== ENCOUNTER 2021-05-23 16:20 | Emergency (ER) | payer MEDICARE, MEDICAID, SELFPAY ==
[2021-05-23] VITALS (9 sets, daily range): BP systolic 108–140; BP diastolic 82–98; PULSE 76–120; RESP 18–30; TEMP 36.8; O2SAT 94–97
--- NOTE | 2021-05-23 16:15 | RT.EKG_ITS ---
APPROVED REPORT Exam: Resting ECG Reason for Exam: irregular pulse Patient Location: E HR:100 bpm ECG Measurements Heart Rate 100 AXIS VA 150 P 0 QRSd 142 QRS -87 QT 413 T 49 QTc 535 Conclusion .V-rate 75-144, variation>10% Right bundle branch block...QRSd>120, terminal axis(90,270) afib
--- NOTE | 2021-05-23 16:30 | DI.CT_ITS ---
Exam(s) CT HEAD WO EXAM: CT HEAD WO CLINICAL HISTORY: altered, more somnolent, prior cva. TECHNIQUE: Imaging Protocol: Axial computed tomography images with coronal and sagittal reformatted images were created and reviewed COMPARISON: CT HEAD WITHOUT CONTRAST from 06/25/2018 FINDINGS: Ventricles and Extra axial spaces: Normal in size and morphology for the patient's age. Hemorrhage: None. Cerebral parenchyma: There again seen old bilateral infarcts, including a large left cerebral infarct . There are areas of decreased attenuation in the white matter consistent with chronic microvascular ischemic change. No acute territorial infarct. Midline shift: None. Brainstem/Cerebellum: Normal. Calvarium: Normal. Visualized Paranasal sinuses/Mastoids: Clear. Soft Tissues: Unremarkable. IMPRESSION: No acute intracranial process. RADIATION DOSE DELIVERED: 685.31mGy.cm Total DLP DATA REPOSITORY: All CT scans at this facility are submitted to the National Radiology Data Registry (NRDR) Dose Index Registry (DIR) with the [employer] (A[employer]). RADIATION OPTIMIZATION: All CT scans at this facility use at least one of these dose optimization te chniques: automated exposure control; mA and/or kV adjustment per patient size (includes targeted exa ms where dose is matched to clinical indication); or iterative reconstruction.
[2021-05-23] MEDS: Lactated Ringers 500 ML IV (16:45)
--- NOTE | 2021-05-23 16:48 | ED.GENADUL_ITS ---
Discharge Plan Disposition Patient Disposition: HOME Condition: Stable Discharge Details Clinical Impression: Leukocytosis, Fatigue Primary Care Provider: Elizabeth Corral ED Provider: Hal Bowden Home Meds and New Rx's Prescriptions: Continued atorvastatin [Lipitor] 40 MG tablet 40 mg PO QPM Qty: 30 RF: 0 metoprolol succinate 50 MG tablet extended release 24 hr 50 mg PO BID RF: 0 Azo Bladder Control 300 mg Capsule 1 cap PO BID RF: 0 Eliquis 5 mg Tablet 5 mg PO BID Qty: 0 RF: 0 digoxin [Digox] 125 mcg Tablet 125 mcg PO DAILY RF: 0 trazodone 50 mg tablet 50 mg HS RF: 0 risperidone 1 mg/mL solution 0.5 mg QNOON RF: 0 risperidone 1 mg/mL solution 1 mg BID RF: 0 psyllium Packet 1 packet PO BID RF: 0 divalproex 125 mg capsule, delayed rel sprinkle 125 mg PO BID RF: 0 loperamide 2 mg Tablet 2 mg PO DAILY RF: 0 sulfamethoxazole-trimethoprim 800-160 mg tablet 1 tab PO BID RF: 0 cranberry 500 mg Capsule PO BID RF: 0 Discharge Instructions Instructions: Leukocytosis (ED), Fatigue (ED) Additional Instructions: Blood cultures are pending at time of discharge. Please follow-up with physician/advanced practitioner at nursing rehab facility over the next couple days. Return to the ER for any worsening or new concerning symptoms. Discharge Data Discharge Date/Time-TO BE ENTERED AT DEPARTURE: 05/23/21 21:32 Medical Decision Making [id number]??76-year-old female with history of dementia, A. fib, CVA, residual expressive aphasia, presents from nursing rehab facility with concern for somnolence compared to baseline. Screening ECG was reviewed and interpreted by me: Please report, A. fib with right bundle branch block, 100 bpm. Consider acute life-threatening intracranial hemorrhage. Plan to obtain CT of the head. Patient was recently diagnosed urinary tract infection and is being treated with Bactrim. Consider resistant UTI. Will check urinalysis. Patient does appear mildly dehydrated and will provide IV rehydration. --CT of the head was reviewed and interpreted by radiology: No evidence for acute intracranial abnormality, no significant change since the prior study. Labs reviewed and nondiagnostic: Leukocytosis noted. Patient has had leukocytosis frequently in the past. Urinalysis was reviewed and is not consistent with UTI. Chest x-ray reviewed and interpreted by radiology: No infiltrate. Patient is afebrile. He is unlikely that she has bacteremia but I will send blood cultures. Patient was reassessed and her is present and notes that she typically waxes and wanes in terms of her mental status her current status is normal for her. I did learn that she recently started Depakote. We will check Depakote level. --Depakote level low. Heart rate has remained in the 90s to around 100. Blood pressure stable. Plan to discharge to nursing care facility with plan to complete antibiotic course for UTI and be followed up by long-term physician. HPI General Mode of arrival: ambulatory . Date/Time Provider Initiated Documentation: 05/23/21 16:24 . Limitations to Documentation: no limitations . Information obtained by: patient . 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 History review of systems limited secondary to dementia and altered mental status. Per long-term staff, patient has been more somnolent than usual. She was recently diagnosed with urinary tract infection and started on Bactrim on 05/20/2021. Patient has no complaints. She denies pain. Related Data Home Medications Medication Instructions Recorded Confirmed atorvastatin [Lipitor] 40 mg PO QPM #30 tab 09/05/16 05/23/21 metoprolol succinate 50 mg PO BID 03/25/18 05/23/21 digoxin [Digox] 125 mcg PO DAILY 01/20/19 05/23/21 Azo Bladder Control 1 cap PO BID 05/19/19 05/23/21 Eliquis 5 mg PO BID #0 tab 05/23/19 05/23/21 cranberry PO BID 05/23/21 divalproex 125 mg PO BID 05/23/21 05/23/21 loperamide 2 mg PO DAILY 05/23/21 05/23/21 psyllium 1 packet PO BID 05/23/21 05/23/21 risperidone 0.5 mg QNOON 05/23/21 05/23/21 risperidone 1 mg BID 05/23/21 05/23/21 sulfamethoxazole-trimethoprim 1 tab PO BID 05/23/21 05/23/21 trazodone 50 mg HS 05/23/21 05/23/21 Previous Rx's Medication Instructions Recorded atorvastatin [Lipitor] 40 mg PO QPM #30 tab 09/05/16 Eliquis 5 mg PO BID #0 tab 05/23/19 Allergies Allergy/AdvReac Type Severity Reaction Status Date / Time codeine Allergy Unknown Unverified 07/16/19 10:56 erythromycin base Allergy Unknown Unverified 07/16/19 10:56 General Stated Complaint: GenMedical YI: 2 Review of Systems Unobtainable due to mental condition [facility] Medical History (Updated 05/23/21 @ 20:06 by Hal Bowden MD) Atrial fibrillation CHF (congestive heart failure) CVA (cerebral vascular accident) Dementia Depression MVP (mitral valve prolapse) Surgical History H/O mitral valve repair History of bladder surgery History of hysterectomy History of knee replacement Hx of cholecystectomy Social History Smoking/Tobacco Use Status: Never Smoking risk assessment performed?: Yes Alcohol Intake: never Drug use: Never Do you feel safe in your relationship?: Yes Exam Const General: cooperative and no acute distress HENMT Mouth: moist mucous membranes Eyes Conjunctivae: normal conjunctivae Sclera: normal sclerae Neck Neck: trachea midline and supple Resp Auscultation: clear to auscultation bilaterally, no rales, no rhonchi and no wheezes Cardio Jugular venous pressure: no JVD Rate: tachycardic Rhythm: abnormal rhythm irregularly irregular GI Palpation: soft, not firm, no guarding, no masses, not rigid and nontender Skin General skin exam: no rashes or lesions noted Neuro General: patient alert, patient awake, not oriented x3, oriented Patient Orientation: Person and Confused and tone normal Cognition: abnormal cognition Speech: expressive aphasia Other: Exam limited as patient does not cooperate at times Extrem General: no edema Psych Appearance: grossly normal Course Vital Signs Vital signs: Vital Signs Temperature 36.8 C 05/23/21 16:24 Pulse 102 H 05/23/21 16:24 Respiratory Rate 20 05/23/21 16:24 Blood Pressure 128/84 05/23/21 16:24 Pulse Oximetry 97 05/23/21 16:24 Temperature 36.8 C 05/23/21 16:24 Temperature Source Skin 05/23/21 16:24 Pulse 102 H 05/23/21 16:24 Respiratory Rate 20 05/23/21 16:24 Respiratory Effort Non-Labored 05/23/21 16:24 Blood Pressure 128/84 05/23/21 16:24 Blood Pressure Position Supine 05/23/21 16:24 Pulse Oximetry 97 05/23/21 16:24 Oxygen Delivery Method Room Air 05/23/21 16:24 Oxygen Flow Rate 0 05/23/21 16:24 Pain Level 0 05/23/21 16:24
[2021-05-23 16:49] LABS: Abs Immature Grans 0.05 10^3/uL (0.0-0.06); Absolute Lymphocyte Count 3.91 10^3/uL (1.2-3.4); Basophils % 0.5; Eosinophils % 0.5; HCT 51.4 % (36.0-46.0); HGB 16.4 g/dL (11.2-15.7); Immature Grans % 0.3; Lymphocytes % 26.5; MCH 28.5 pg (27.0-33.0); MCHC 31.9 % (32.0-36.0); MCV 89.4 fL (80-95); MPV 10.3 fL (8.0-11.0); Monocytes % 5.1; Neutrophils % 67.1; Nucleated RBC 0 %; Platelet Count 259 10^3/uL (130-400); RBC 5.75 10^6/uL (3.93-5.22); RDW 13.7 % (11.7-14.6); RDW-SD 44.2 fL; WBC 14.76 10^3/uL (4.4-10.8)
[2021-05-23 16:51] LABS: Absolute Basophil Count 0.07 10^3/uL (0.0-0.2); Absolute Eosinophil Count 0.07 10^3/uL (0.0-0.7); Absolute Monocyte Count 0.75 10^3/uL (0.1-0.8)
[2021-05-23 16:57] LABS: Bilirubin Negative (Negative); Blood Negative (Negative); Clarity Cloudy (Clear); Glucose Negative (Negative); Ketones Trace mg/dL (Negative); Leukocyte Esterase Negative (Negative); Nitrite Negative (Negative); Specific Gravity 1.025 (1.005-1.025); Urobilinogen 0.2 EU/dL (Up TO 0.2)
[2021-05-23 17:03] LABS: ALT 35 U/L (14-59); AST 77 U/L (15-37); Albumin 3.3 g/dL (3.4-5.0); Alkaline Phosphatase 118 U/L (46-116); Anion Gap 9.6 mmol/L (3-11); BUN 20 mg/dL (7-18); Bilirubin, Total 0.6 mg/dL (0.2-1.0); CO2 25.4 mmol/L (21.0-32.0); CREATININE 1.2 mg/dL (0.55-1.02); Chloride 106 mmol/L (98-107); Estimated GFR 43.45 (mL/min/1.73m2); Glucose 101 mg/dL (74-106); Magnesium 2.1 mg/dL (1.8-2.4); Potassium 4.4 mmol/L (3.5-5.1); Sodium 141 mmol/L (136-145); Total Protein 6.7 g/dL (6.4-8.2)
[2021-05-23 17:05] LABS: Troponin I < 0.05 ng/mL (<0.06)
--- NOTE | 2021-05-23 18:07 | DI.RAD_ITS ---
Exam(s) XR PORTABLE CHEST AP EXAM: XR PORTABLE CHEST AP CLINICAL HISTORY: altered, leukocytosis TECHNIQUE: 2D digital imaging was performed. COMPARISON: CR XR CHEST 2V PA LATERAL from 05/19/2019 FINDINGS: MEDIASTINUM: Normal. HEART: There is cardiomegaly. There does appear to be a cardiac valve replacement. PULMONARY VASCULATURE: Normal. LUNGS: Clear. PLEURAL SPACE: No pleural effusion or pneumothorax. BONE:Within normal limits for the patient's age. OTHER FINDINGS:Surgical clips are seen in the region of the right axilla. IMPRESSION: 1. No acute pulmonary findings. 2. Cardiomegaly. DATA REPOSITORY: RADIATION DOSE DELIVERED:
--- NOTE | 2021-05-23 18:35 | DI.VRAD_ITS ---
PROCEDURE INFORMATION: Exam: CT Head Without Contrast Exam date and time: 05/23/2021 4:41 PM Age: 76 years old Clinical indication: Altered mental status/memory loss; Patient HX: Altered, more somnolent, prior CVA TECHNIQUE: Imaging protocol: Computed tomography of the head without contrast. COMPARISON: CT HEAD WITHOUT CONTRAST 06/25/2018 1:09 PM FINDINGS: Brain: There is stable large focus of cortical volume loss of the left cerebrum and small focus in the right frontal lobe, consistent with encephalomalacia from a remote infarct or other injury.There is low attenuation in the periventricular white matter suggestive of chronic small vessel ischemic changes. Cerebral ventricles: No ventriculomegaly. Paranasal sinuses: Visualized sinuses are unremarkable. No fluid levels. Mastoid air cells: Visualized mastoid air cells are well aerated. Bones/joints: Unremarkable. No acute fracture. Hyperostosis frontalis interna. Soft tissues: Unremarkable. IMPRESSION: 1. No evidence for acute intracranial abnormality. 2. No significant change since the prior study. Dictated and Authenticated by: Nando Shah MD. Ordering:KENTRELL Hong MD
--- NOTE | 2021-05-23 18:36 | DI.VRAD_ITS ---
PROCEDURE INFORMATION: Exam: XR Chest Exam date and time: 05/23/2021 6:16 PM Age: 76 years old Clinical indication: Other: Leukocytosis TECHNIQUE: Imaging protocol: XR of the chest. Views: 1 view. COMPARISON: SC XR CHEST 2V PA LATERAL 05/19/2019 1:20 AM FINDINGS: Lungs: No mass. No consolidation. Pleural spaces: Unremarkable. No pleural effusion. No pneumothorax. Heart/Mediastinum: There is cardiomegaly. Bones/joints: Unremarkable. Soft tissues: There are surgical clips along the right upper chest wall. IMPRESSION: Cardiomegaly. Dictated and Authenticated by: Nando Shah MD. Ordering:KENTRELL Hong MD
[2021-05-23 20:01] LABS: VALPROIC ACID 32.5 ug/mL (50-100)
== END 2021-05-23 21:32 | disposition home or self-care (01) ==
PROVIDERS: Emergency Provider Student in an Organized Health Care Education/Training Program; PCP Family Medicine
DX: D72.829 Elevated white blood cell count, unspecified (principal); R53.83 Other fatigue
CPT/HCPCS: 36410; 36415; 51701; 80053; 87040; 93005; 96360; 99285; 70450; 71045; 80164; 81003; 83735; 84484; 85025; 93010; 99284